=== PATIENT | female | born 1950 | race Caucasian/White ===

== ENCOUNTER 2019-03-31 16:11 | Outpatient (CLI) | payer MEDICARE, MEDICAID ==
--- NOTE | 2019-03-31 16:36 | RAD ---
XR Lumbar Spine 2 Or 3 View History: M 54.5, M 48.06. Ruptured disc Comparison: None. Findings: Mild levoscoliosis lumbar spine. Severe left facet arthropathy at L4/L5 and L5/S1 with mode rate facet arthropathy at these levels. 3 mm L4 over L5 anterolisthesis. Moderate degenerative disc space height loss at L4/L5 and severe deg enerative disc space height loss at L5/S1. Circumferential disc osteophyte complex at L5/S1. Calcifications are present along the expected location left gonadal veins at L5. Right upper quadrant surgical clips. Mild narrowing at of the interspinous space at L1-L5. Impression: Moderate degenerative changes without acute fracture or malalignment.
== END 2019-03-31 16:12 | disposition home or self-care (01) ==
LOC: SCSRAD 16:11
PROVIDERS: ATTEND Physical Medicine & Rehabilitation
DX: M54.5 Low back pain (principal); M47.816 Spondylosis without myelopathy or radiculopathy, lumbar region
CPT/HCPCS: 72100

== ENCOUNTER 2019-04-20 13:43 | Outpatient (CLI) | payer MEDICARE, MEDICAID ==
--- NOTE | 2019-04-20 16:03 | MRI ---
MRI RIGHT HIP WITHOUT CONTRAST: HISTORY: Chronic pain. M54.5. M48.06. COMPARISON: None. FINDINGS: BONES: No fracture. No dislocation. No stress edema. There is a subtle can deformity of the right femoral head/neck junction. There are posterior femoral head/neck junction cysts. Small bilateral ring osteophytes at the femoral head/neck junctions. LABRUM: Intrasubstance tear anterior superior labrum. CARTILAGE: There is 50% cartilage loss anterior femoral head and acetabulum. TENDONS: There is mild gluteus medias and minimus tendinosis and partial tearing. Low-grade gluteus medias bu rsa effusion. The iliopsoas tendon is intact. The rectus femoris tendon is intact. Mild tendinosis of the common hamstring and semimembranosus ten dons. INTRAPELVIC SOFT TISSUES: Unremarkable. MUSCLES: The muscle bulk is normal. No edema. IMPRESSION: 1. Mild to moderate degenerative change of the right hip with greater than 50% articular cartilage l oss of the anterior acetabulum and femoral head. 2. Intrasubstance tear of the labrum. 3. Small ring osteophytes of the bilateral femoral head/neck junctions. 4. Mild right gluteus medias and minimus tendinosis and partial tearing with small right greater tro chanteric bursa effusion. 5. Advanced degenerative changes of the lower lumbar spine. POS: CET
== END 2019-04-20 13:44 | disposition home or self-care (01) ==
LOC: SCSMRI 13:43
PROVIDERS: ATTEND Physical Medicine & Rehabilitation
DX: M54.5 Low back pain (principal); M48.061 Spinal stenosis, lumbar region without neurogenic claudication; M16.11 Unilateral primary osteoarthritis, right hip; S73.101A Unspecified sprain of right hip, initial encounter; M47.816 Spondylosis without myelopathy or radiculopathy, lumbar region; M76.01 Gluteal tendinitis, right hip
CPT/HCPCS: 87077; 87086

== ENCOUNTER 2019-05-26 11:46 | Outpatient (CLI) | payer MEDICARE, MEDICAID ==
--- NOTE | 2019-05-26 13:28 | MRI ---
Cervical spine MRI without contrast: 05/26/2019 COMPARISON: None HISTORY: Cervical disc displacement, radiculopathy TECHNIQUE: Multiplanar multisequence MR imaging of the cervical spine without contrast FINDINGS: Sagittal STIR imaging demonstrates no focal area of osseous marrow edema. There is mucosal thickening involving the alveolar recess of the right maxillary sinus. There is no significant anterolisthesis or retrolisthesis. No prevertebral soft tissue swelling. C2-3: There is a central annular tear with a small central disc protrusion. No associated central can al or neural foraminal stenosis. C3-4: There is disc space narrowing, disc desiccation, and disc bulge with effacement of the ventral thecal sac and moderate central canal stenosis. There is bilateral facet and uncovertebral osteophyte formation with moderate bilateral neural foraminal stenosis. C4-5: There is disc space narrowing and disc desiccation with disc bulge causing a moderate degree of central canal stenosis. There is significant bilateral facet and uncovertebral osteophyte formation, right greater than left, with moderate/severe bilateral neural foraminal stenosis. C5-6: There is disc space narrowing and disc desiccation with disc bulge causing mild effacement of t he ventral thecal sac and mild/moderate central canal stenosis. There is a foraminal and post foraminal disc protrusion on the right. There is mild bilateral uncovertebral osteophyte formation. T here is mild right and moderate left neural foraminal stenosis. C6-7: Disc space narrowing, disc desiccation, and mild disc bulge. No significant central canal steno sis. Mild bilateral neural foraminal stenosis on the basis of facet and uncovertebral osteophyte formation. C7-T1: Mild bilateral facet hypertrophy. Disc space narrowing, disc desiccation, and mild disc bulge. No significant central canal or neural foraminal stenosis. No focal area of abnormal signal intensity identified within the cervical cord. IMPRESSION: Multilevel cervical spine degenerative change as detailed above.
== END 2019-05-26 11:47 | disposition home or self-care (01) ==
LOC: MRI 11:46
PROVIDERS: ATTEND Psychiatry & Neurology Neurology
DX: M50.20 Other cervical disc displacement, unspecified cervical region (principal); M47.812 Spondylosis without myelopathy or radiculopathy, cervical region; M47.813 Spondylosis without myelopathy or radiculopathy, cervicothoracic region
CPT/HCPCS: 72141

== ENCOUNTER 2019-11-11 13:09 | Outpatient (CLI) | payer MEDICARE, MEDICAID ==
--- NOTE | 2019-11-11 15:10 | ULT ---
VENOUS DOPPLER ULTRASOUND OF THE LEFT LOWER EXTREMITY: Date: 11/11/2019 HISTORY: Left leg edema. TECHNIQUE: Booker scale ultrasound with color flow and spectral Doppler imaging of the deep venous system of the l eft lower extremity was performed. FINDINGS: There is good flow, compression, and augmentation noted in the left common femoral, femoral, deep fem oral, popliteal, posterior tibial, and greater saphenous veins. IMPRESSION: No evidence of deep venous thrombosis in the left lower extremity. POS: [facility]
== END 2019-11-11 13:10 | disposition home or self-care (01) ==
LOC: SCSULT 13:09
PROVIDERS: ATTEND Specialist
DX: R60.0 Localized edema (principal)

== ENCOUNTER 2020-02-10 01:35 | Emergency (ER) | payer MEDICARE, MEDICAID ==
[2020-02-10] MEDS ORDERED: Ondansetron PF 4 MG/2 ML Vial ONE (02:15)
[2020-02-10 02:25] LABS: #Basophils 0.1 thou/uL (0.0-0.2); #Eosinphils 0.1 thou/uL (0.0-0.7); #Lymphocytes 1.7 thou/uL (1.20-3.40); #Monocytes 0.9 thou/uL (0.11-0.59); #Neutrophils 8.1 thou/uL (1.40-6.50); %Basophils 0.7 % (0.0-1.0); %Eosinophils 0.9 % (0.0-10.0); %Lymphocytes 15.8 % (21.0-51.0); %Monocytes 8.5 % (0.0-10.0); %Neutrophils 74.2 % (42.0-75.0); Hemoglobin 15.1 g/dL (12.0-16.0); Mean Corpuscular HGB CONC 34.3 g/dL (32.0-36.0); Mean Corpuscular Hemoglobin 31.5 pg (27.0-31.0); Mean Corpuscular Volume 91.9 fL (78.0-98.0); Platelet Count 311 thou/uL (130-400); RBC Distribution Width 11.4 % (11.5-14.5); Red Blood Cell (RBC) Count 4.77 mill/uL (4.20-5.40); White Blood Cell (WBC) Count 10.9 thou/uL (4.8-10.8)
[2020-02-10 02:40] LABS: ALT (SGPT) 31 U/L (8-55); AST (SGOT) 21 U/L (5-34); Albumin 4.2 g/dL (3.4-4.8); Alkaline Phosphatase 86 U/L (40-110); Anion Gap 16 mmol/L (10-20); BUN (Urea Nitrogen) 8 mg/dL (9.8-20.1); Bilirubin, Total 0.6 mg/dL (0.2-1.2); Calc. Creatinine Clearance 0 mL/min (70-130); Carbon Dioxide 21 mmol/L (23-31); Chloride 101 mmol/L (98-107); Estimated GFR-MDRD 35; Globulin 2.8 g/dL (2.4-3.5); Glucose 223 mg/dL (83-110); Lipase 8 U/L (8-78); Potassium 3.1 mmol/L (3.5-5.1); Sodium 135 mmol/L (136-145)
[2020-02-10] MEDS ORDERED: Ketorolac Tromethamine 30 MG/ML VIAL ONE (03:08)
[2020-02-10 03:37] LABS: Bacteria/HPF None Seen HPF (None Seen); Bilirubin Negative (Negative); Blood, Urine 3+ (Negative); Clarity Turbid (Clear); Glucose, Urine (Dipstick) 30 mg/dL (Negative); Leukocyte Negative Leu/uL (Negative); Nitrite Negative (Negative); Protein, Urine (Dipstick) 50 mg/dL (Neg-Trace); RBC/HPF Greater than 50 HPF (0-3); Squamous Epithelial 0-3 HPF (0-3); Urobilinogen Normal mg/dL (Less than 2)
[2020-02-10] MEDS ORDERED: Morphine 4 MG/ML VIAL ONE ×2 (04:19→04:47)
[2020-02-10] MEDS ORDERED: Potassium Chloride 20 MEQ TAB ONE (04:20)
--- NOTE | 2020-02-10 07:53 | RAD ---
Exam: Chest one view HISTORY:Nausea. Vomiting. Comparison: 01/09/2020 FINDINGS: Cardiac silhouette: Normal Aorta: Stable atherosclerosis Pulmonary vessels: Normal Costophrenic angles: Pleural effusion. Stable elevation of the right hemidiaphragm LUNGS: No masses or consolidation. Pneumothorax: None Osseous abnormalities: None IMPRESSION: No acute cardiopulmonary process. Atherosclerosis.
--- NOTE | 2020-02-10 08:00 | CT ---
PRELIMINARY REPORT/[facility]/EMERGENCY AFTER HOURS PROCEDURE: Receipt of this report by the clinical staff was confirmed with Ksenia Yates RN by Pat Longoria on Feb 10, 2020 03:19:00 CDT. Addendum electronically signed by Pat Longoria on February 10, 2020 3:22:17 AM CDT EXAM: CT Abdomen and Pelvis with Intravenous Contrast CLINICAL HISTORY: RLQ ABD PAIN AND VOMITING. PT THINKS SHE HAD HER APPENDIX REMOVED BUT IS UNSURE. ABD PAIN BEGAN TODAY BUT VOMITING HAS BEEN OCCURING FOR A FEW WEEKS WITH DECREASED APPETITE CURRETNLY BEING TREATED FOR UTI. ALSO REPORTS DECREASED URINATION. PT DAUGHTER STATES PCP WAS GOING T O DO IMAGING TO R.O BLOCKAGE BUT THAT THIS HAS NOT BEEN COMPLETED YET TECHNIQUE: Axial computed tomography images of the abdomen and pelvis with intravenous contrast. CONTRAST: With; 60ML ISOVUE 370 COMPARISON: None provided. FINDINGS: LUNG BASES: No basilar airspace consolidation or pleural effusion. LIVER: Unremarkable. GALLBLADDER AND BILE DUCTS: The patient has had a cholecystectomy. PANCREAS: Unremarkable. SPLEEN: Unremarkable. ADRENAL GLANDS: Unremarkable. KIDNEYS, URETERS, AND BLADDER: There is a 5 x 6 mm stone in the right proximal ureter, causing mild t o moderate right-sided hydronephrosis. STOMACH AND BOWEL: No obstruction. No wall thickening. No CT evidence of colitis or acute diverticuli tis. APPENDIX: No CT evidence for appendicitis. PERITONEUM: No free fluid. No free air. LYMPH NODES: No lymphadenopathy. REPRODUCTIVE: Unremarkable as visualized. VASCULATURE: No aortic aneurysm. BONES: No fracture or suspicious osseous abnormality. ABDOMINAL WALL AND SOFT TISSUES: Unremarkable. IMPRESSION: There is a 5 x 6 mm stone in the right proximal ureter, causing mild to moderate right-si ded hydronephrosis. ELECTRONICALLY SIGNED BY: Faviola Saez MD Feb 10, 2020 3:16:43 AM CDT FINAL REPORT: EXAM: CT ABDOMEN AND PELVIS HISTORY: Abdominal pain. Right lower quadrant pain. Vomiting. Possible previous appendectomy. COMPARISON: None. Procedure: Multiple contiguous axial images were obtained and a CT of the abdomen and pelvis with IV contrast. C oronal reformats were performed. FINDINGS: Lower Chest: within normal limits. Vessels: Normal caliber aorta. Heart: Normal heart size. Abdomen: Portal vein:Patent. Gallbladder: Surgically absent. Liver: Diffuse hypoattenuation suggesting hepatic steatosis. Pancreas: within normal limits. Spleen: within normal limits. Adrenals: within normal limits. Kidneys: Moderate right-sided obstructive uropathy secondary to a calculus in the proximal right uret er measuring 0.6 cm. No evidence of left sided obstructive uropathy. Hypodensity in the mid left renal cortex measures 1 cm and is too small to further characterize. Peritoneum: No ascites or free air, no fluid collection. Bowel: Limited evaluation due to the lack of oral contrast administration. No evidence of bowel obstr uction. Ileocecal junction is unremarkable. Though there is a reported history of an appendectomy, normal caliber appendix is identified. Scattered fecal material in a nondistended, nondilated colon. Mesentery and Retroperitoneum: No enlarged mesenteric or retroperitoneal lymph nodes. Abdominal Wall: within normal limits. Pelvis: Reproductive Organs: Surgically absent uterus. Pelvis: No mass, lymphadenopathy, free air or free fluid. Bladder: within normal limits. Bones: within normal limits. IMPRESSION: 1. This report is in agreement with initial report by [facility]. 2. Moderate right-sided obstructive uropathy secondary to a proximally right ureteral calculus. 3. Indeterminate lesion in the left kidney. Followup imaging is recommended. 4. Normal caliber appendix is noted in the right lower. CODE T Transcribed Date/Time: 02/10/2020 8:11 AM
[2020-02-10] MEDS ORDERED: Iopamidol-370 76% 500 ML 1 ML ONE (14:08)
== END 2020-02-10 05:22 | disposition home or self-care (01) ==
LOC: ERS 01:35
DX: N13.2 Hydronephrosis with renal and ureteral calculous obstruction (principal); E11.9 Type 2 diabetes mellitus without complications; I10 Essential (primary) hypertension; Z79.899 Other long term (current) drug therapy
CPT/HCPCS: 36415; 71045; 74177; 80053; 81003; 81015; 83690; 85025; 93005; 96361; 96374; 96375; J1885; J2270; J2405; Q9967

== ENCOUNTER 2020-03-21 13:29 | Outpatient (CLI) | payer MEDICARE, MEDICAID, OTHER ==
[2020-03-21 16:08] LABS: #Basophils 0.1 thou/uL (0.0-0.2); #Eosinphils 0.4 thou/uL (0.0-0.7); #Lymphocytes 2.9 thou/uL (1.20-3.40); #Monocytes 1.1 thou/uL (0.11-0.59); #Neutrophils 6.7 thou/uL (1.40-6.50); %Basophils 0.8 % (0.0-1.0); %Eosinophils 3.4 % (0.0-10.0); %Lymphocytes 26.1 % (21.0-51.0); %Monocytes 10.1 % (0.0-10.0); %Neutrophils 59.5 % (42.0-75.0); Hemoglobin 14.6 g/dL (12.0-16.0); Mean Corpuscular HGB CONC 32.5 g/dL (32.0-36.0); Mean Corpuscular Hemoglobin 29.9 pg (27.0-31.0); Mean Platelet Volume 9.9 fL (7.4-10.4); Platelet Count 344 thou/uL (130-400); RBC Distribution Width 11.8 % (11.5-14.5); White Blood Cell (WBC) Count 11.3 thou/uL (4.8-10.8)
[2020-03-21 16:22] LABS: Anion Gap 15 mmol/L (10-20); BUN (Urea Nitrogen) 12 mg/dL (9.8-20.1); Calc. Creatinine Clearance 0 mL/min (70-130); Calcium 10.1 mg/dL (7.8-10.44); Carbon Dioxide 22 mmol/L (23-31); Chloride 103 mmol/L (98-107); Estimated GFR-MDRD 31; Glucose 113 mg/dL (83-110); Potassium 4.2 mmol/L (3.5-5.1); Sodium 136 mmol/L (136-145)
[2020-03-22 12:24] LABS: SARS-CoV-2 MS2 Positive; SARS-CoV-2 N Gene Negative; SARS-CoV-2 S Gene Negative; SARS-CoV-2 orf1ab Negative
== END 2020-03-21 13:30 | disposition home or self-care (01) ==
LOC: LABBT 13:29
PROVIDERS: ATTEND Urology
DX: Z01.818 Encounter for other preprocedural examination (principal); Z11.59 Encounter for screening for other viral diseases; N20.1 Calculus of ureter
CPT/HCPCS: 80048; 85025; 93005; U0003; 87635; 93010

== ENCOUNTER 2020-03-22 06:08 | Day surgery (SDC) | payer MEDICARE, MEDICAID ==
[2020-03-21 15:40] VITALS: BMI 37.1
[2020-03-22] MEDS ORDERED: Levofloxacin 500 mg/D5W 100 ml Premix Bag ONE (06:19)
[2020-03-22] MEDS ORDERED: Iopamidol 0 ML ONE (06:22)
[2020-03-22] MEDS ORDERED: Iopamidol 0 ML FS ONE (06:22)
[2020-03-22] MEDS ORDERED: Fentanyl 100 MCG/2 ML VIAL ONE ×2 (06:52→12:59)
[2020-03-22] MEDS ORDERED: Iothalamate Meglumine 60% 50 ML VIAL FS ONE (13:01)
--- NOTE | 2020-03-22 13:52 | RAD ---
Retrograde pyelogram 1 view: 03/22/2020 HISTORY: 69-year-old female with right hydronephrosis due to obstructing ureterolithiasis. COMPARISON: No prior retrograde pyelograms FINDINGS: There is a right ureteral stent with upper pigtail overlapping right renal pelvis and lower pigtail a t lower right pelvis. There is contrast material in moderately dilated right renal collecting system and a small amount in the urinary bladder. IMPRESSION: 1.) Right hydronephrosis. 2. Right ureteral stent
[2020-03-22] MEDS ORDERED: Ondansetron PF 4 MG/2 ML Vial ONE (14:11)
[2020-03-22] MEDS ORDERED: Lidocaine 1% PF 5 ML VIAL ONE (14:11)
[2020-03-22] MEDS ORDERED: Ketorolac Tromethamine 30 MG/ML VIAL ONE (14:11)
[2020-03-22] MEDS ORDERED: PHENYLEPHRINE-NS 100 MCG/ML 10 ML SYRINGE ONE (14:11)
[2020-03-22] MEDS ORDERED: PROPOFOL 200 MG/20 ML VIAL ONE (14:11)
--- NOTE | 2020-03-22 14:52 | OP ---
DATE OF PROCEDURE: 03/22/2020 PREOPERATIVE DIAGNOSIS: Right ureteral stone. POSTOPERATIVE DIAGNOSIS: Right ureteral stone. PROCEDURES PERFORMED: Right ureteroscopy with laser, basket, retrograde, 6 x 24 double-J ureteral stent without strings. ANESTHESIA: General. COMPLICATIONS: None. ESTIMATED BLOOD LOSS: None. SPECIMEN: Right ureteral stone fragments. DESCRIPTION OF PROCEDURE: After informed consent, the patient was taken to the operating room, transferred to the table on her own power. Anesthesia was established. A time-out was performed, showing the correct patient, site, and procedure. Preoperative antibiotics were administered. She was prepped and draped in the lithotomy position. I began by inserting the semi-rigid ureteroscope through the urethra noting no significant abnormalities of her pelvic anatomy. The right ureteral orifice was cannulated with a wire, which was passed up to the renal pelvis under fluoroscopic guidance. The scope was withdrawn and reinserted alongside the wire until the stone was identified in the mid to proximal ureter. She did have significant ureteral edema around the stone. 365 micron laser fiber was used to fragment the stone into several small pieces. The 1.9-cm Nitinol basket was used to retrieve these pieces. The scope was then passed up to the renal pelvis noting no further stone fragments or abnormalities. A retrograde pyelogram was performed showing good filling of the renal pelvis noting mild hydronephrosis. The scope was withdrawn, and a 6 x 24 double-J ureteral stent was passed over the wire with a curl in the kidney and curl in the bladder under fluoroscopic guidance. A 16-Kazakh Espinosa catheter was then placed with 10 mL instilled in the balloon draining clear urine. This was connected to leg bag. The patient was then awoken from anesthesia, transferred back to her hospital bed, and taken to PACU in stable condition, where she will be discharged home upon recovery. Job ID: [id number]
== END 2020-03-22 16:10 | disposition home or self-care (01) ==
LOC: SDC 06:08
PROVIDERS: ATTEND Urology
PROC: 0TC68ZZ Extirpation of Matter from Right Ureter, Via Natural or Artificial Opening Endoscopic (ICD-10-PCS; principal; 2020-03-22)
PROC: 0T768DZ Dilation of Right Ureter with Intraluminal Device, Via Natural or Artificial Opening Endoscopic (ICD-10-PCS; 2020-03-22)
DX: N13.2 Hydronephrosis with renal and ureteral calculous obstruction (principal); M19.90 Unspecified osteoarthritis, unspecified site; J45.909 Unspecified asthma, uncomplicated; G89.29 Other chronic pain; E11.9 Type 2 diabetes mellitus without complications; Z87.891 Personal history of nicotine dependence; Z79.84 Long term (current) use of oral hypoglycemic drugs; Z79.899 Other long term (current) drug therapy; Z88.5 Allergy status to narcotic agent; Z88.8 Allergy status to other drugs, medicaments and biological substances
CPT/HCPCS: 74420; 82365; 88300; J1885; J1956; J2405; J2704; J3010; Q9967

== ENCOUNTER 2020-03-23 10:06 | Inpatient (IN) | payer MEDICARE, MEDICAID ==
[2020-03-23 10:40] LABS: Bilirubin Negative (Negative); Blood, Urine 3+ (Negative); Clarity Turbid (Clear); Glucose, Urine (Dipstick) Normal (Negative); Ketone, Urine Negative (Negative); Leukocyte 500 Leu/uL (Negative); Nitrite Negative (Negative); Protein, Urine (Dipstick) 200 mg/dL (Neg-Trace); RBC/HPF Greater than 50 HPF (0-3); Squamous Epithelial None Seen HPF (0-3); Urobilinogen Normal mg/dL (Less than 2); WBC/HPF 0-3 HPF (0-3)
[2020-03-23 10:42] LABS: Bacteria/HPF 1+ HPF (None Seen)
[2020-03-23] MEDS ORDERED: Ondansetron PF 4 MG/2 ML Vial ONE (10:42)
[2020-03-23] MEDS ORDERED: Cefepime 2 GM VIAL ONE (10:42)
[2020-03-23] MEDS ORDERED: Morphine 4 MG/ML VIAL ONE (11:03)
--- NOTE | 2020-03-23 11:05 | RAD ---
RADIOGRAPH CHEST 1 VIEW: DATE: 03/23/2020 HISTORY: 69-year-old female with right chest pain, fever, and sepsis FINDINGS: There are no airspace densities, pulmonary edema, pneumothorax, or cardiomegaly. The lateral costophr enic angles are sharp. No evidence of pneumoperitoneum. IMPRESSION: No acute cardiopulmonary findings.
[2020-03-23 11:28] LABS: #Lymphocytes 1.2 thou/uL (1.20-3.40); #Monocytes 1.5 thou/uL (0.11-0.59); #Neutrophils 12.5 thou/uL (1.40-6.50); %Basophils 0.2 % (0.0-1.0); %Eosinophils 0.2 % (0.0-10.0); %Lymphocytes 7.8 % (21.0-51.0); %Monocytes 9.8 % (0.0-10.0); Mean Corpuscular HGB CONC 32.1 g/dL (32.0-36.0); Mean Corpuscular Hemoglobin 29.4 pg (27.0-31.0); Mean Corpuscular Volume 91.5 fL (78.0-98.0); Mean Platelet Volume 9.2 fL (7.4-10.4); Platelet Count 230 thou/uL (130-400); RBC Distribution Width 12.1 % (11.5-14.5); Red Blood Cell (RBC) Count 4.44 mill/uL (4.20-5.40); White Blood Cell (WBC) Count 15.3 thou/uL (4.8-10.8)
[2020-03-23] MEDS ORDERED: Vancomycin 1 GM/200 ML BAG ONE (11:47)
[2020-03-23 11:52] LABS: ALT (SGPT) 23 U/L (8-55); AST (SGOT) 21 U/L (5-34); Albumin 3.4 g/dL (3.4-4.8); Alkaline Phosphatase 80 U/L (40-110); Anion Gap 12 mmol/L (10-20); BUN (Urea Nitrogen) 13 mg/dL (9.8-20.1); Bilirubin, Total 0.5 mg/dL (0.2-1.2); CK (CPK) 54 U/L (29-168); Calc. Creatinine Clearance 0 mL/min (70-130); Calcium 8.8 mg/dL (7.8-10.44); Carbon Dioxide 23 mmol/L (23-31); Chloride 105 mmol/L (98-107); Estimated GFR-MDRD 27; Globulin 2.5 g/dL (2.4-3.5); Glucose 171 mg/dL (83-110); Lipase 11 U/L (8-78); Magnesium 2.5 mg/dL (1.6-2.6); Potassium 3.8 mmol/L (3.5-5.1); Protein, Total 5.9 g/dL (6.0-8.3); Sodium 136 mmol/L (136-145)
--- NOTE | 2020-03-23 12:28 | CT ---
CT ABDOMEN AND PELVIS WITHOUT CONTRAST: DATE: 03/23/2020. PROVIDED CLINICAL HISTORY: Abdominal pain. FINDINGS: Comparison is made with the CT examination dated 02/10/2020. The visualized lung bases are free of significant opacity. Interval placement of a right ureteral stent. Minimal persistent pelvocaliectasis. A small amount o f collecting system gas is seen. No residual ureteral or renal calculi are evident. No evidence for bladder calculus. There is mild perinephric fat stranding on the right without evidence for a perinephric fluid collect ion. There is a stable small fat-containing lumbar hernia on the right. Changes of prior cholecystectomy are seen. There is no bowel dilatation, additional inflammatory fat stranding, free fluid, or free air apparent. The appendix appears normal. Vascular calcifications are noted. The osseous structures demonstrate no concerning lytic or blastic lesions. There is moderate fecal retention. IMPRESSION: 1. Interval placement of right ureteral stent with nonvisualization of the previously described righ t ureteral calculus. Mild nonspecific right perinephric fat stranding. 2. Chronic findings as above. POS: ANJELICA
[2020-03-23 13:06] LABS: Lactic Acid 3.2 mmol/L (0.5-2.2)
[2020-03-23 14:22] LABS: Lactic Acid 2.7 mmol/L (0.5-2.2)
[2020-03-23] MEDS ORDERED: Mometasone 200 MCG/Formoterol 5 MCG 120 PUFF INHALER INH PRN (16:04)
[2020-03-23] MEDS ORDERED: ALBUTEROL SULFATE IH PRN (16:04)
[2020-03-23] MEDS ORDERED: traMADol HCl 50 MG TAB PO PRN (16:04)
[2020-03-23] MEDS ORDERED: Dextrose 50% Abboject 50 ML SYRINGE SLOW IVP PRN (16:07)
[2020-03-23] MEDS ORDERED: Dextrose 5% in Water 1,000 ML IV PRN (16:07)
[2020-03-23] MEDS ORDERED: HumaLOG 300 UNITS/3 ML VIAL SC PRN ×2 (16:07)
[2020-03-23] MEDS ORDERED: Ondansetron ODT 4 MG TAB PO PRN (16:08)
[2020-03-23] MEDS ORDERED: Bisacodyl 10 MG SUPP PR PRN (16:08)
[2020-03-23] MEDS ORDERED: Ondansetron PF 4 MG/2 ML Vial IVP PRN (16:08)
[2020-03-23] MEDS ORDERED: Docusate 100 MG CAP PO PRN (16:11)
[2020-03-23] MEDS ORDERED: diphenhydrAMINE 25 MG CAP PO PRN (16:11)
[2020-03-23] MEDS ORDERED: Melatonin 3 MG TAB PO PRN (16:11)
[2020-03-23] MEDS ORDERED: Labetalol HCl 100 MG/20 ML VIAL SLOW IVP PRN (16:11)
[2020-03-23] MEDS ORDERED: Benzonatate 100 MG CAP PO PRN (16:11)
--- NOTE | 2020-03-23 16:19 | PDOC.HHP ---
Hospitalist HPI - History of Present Illness UTI, Sepsis History of Present Illness: Pleasant 69-year-old female with past medical history of diabetes, hypertension , hyperlipidemia, asthma, osteoarthritis, and recurrent nephrolithiasis presents with urinary tract infection and severe sepsis. The patient went for urologic procedure yesterday with Dr. Ng, the procedure was successful for with stone extraction on the right, please see full operative report for details. Overnight the patient started feeling like she was having right-sided flank pain, generalized weakness, subjective fever and chills and she presented to the emergency department for further evaluation. I find the patient in the emergency department she is covered in several blankets and states that she is freezing. She is complaining of subjective fever and chills. She was tachycardic , with an elevated WBC count, and low blood pressure. Severe sepsis was present on admission. Patient was given IV fluids appropriately by the emergency department physician and she had a good improvement in her blood pressure. The patient is talking, knows herself, knows she is a [place] [facility], knows the year, and she does know the situation. Patient currently denies flank pain. No trouble breathing. Patient admitted to the medical unit for close management. Urology Dr. Ng has been consulted for continuity of care. Hospitalist ROS - Review of Systems All other systems reviewed; all pertinent +/- noted in HPI/Subj Hospitalist History - Past Medical History Source: patient, old records Cardiac: reports: HTN, Hyperlipidemia Pulmonary: reports: asthma Musculoskeletal: reports: Osteoarthritis Renal/: reports: UTI, Other (recurrent nephrolithiasis) Endocrine: reports: Diabetes - Past Surgical History Past Surgical History: reports: Cholecystectomy, Hysterectomy, Tonsillectomy, Other (uroscopy) - Family History Family History: reports: diabetes mellitus, hypertension - Social History Smoking Status: Former smoker Tobacco Type: cigarettes Alcohol: reports: None Drugs: reports: none Living Situation: With Family Activity level: independent ambulation - Exam General Appearance: awake alert Eye: PERRL, anicteric sclera ENT: normocephalic atraumatic, moist mucosa Neck: supple, symmetric, no lymphadenopathy Heart: no murmur, no gallops, no rubs, normal peripheral pulses Respiratory: CTAB, no wheezes, no rales, no ronchi, normal chest expansion Gastrointestinal: soft, non-tender, no guarding, no rigidity Extremities: 1+ LE edema Skin: no lesions, no rashes Neurological: cranial nerve grossly intact, no focal deficits Musculoskeletal: generalized weakness Psychiatric: A&O x 3 Hospitalist Results - Labs Result Diagrams: 03/23/20 11:11 03/23/20 11:11 Lab results: WBC 15.3 thou/uL (4.8-10.8) H 03/23/20 11:11 Hgb 13.0 g/dL (12.0-16.0) 03/23/20 11:11 Hct 40.6 % (36.0-47.0) 03/23/20 11:11 MCV 91.5 fL (78.0-98.0) 03/23/20 11:11 Plt Count 230 thou/uL (130-400) 03/23/20 11:11 Neutrophils % 82.0 % (42.0-75.0) H 03/23/20 11:11 Sodium 136 mmol/L (136-145) 03/23/20 11:11 Potassium 3.8 mmol/L (3.5-5.1) 03/23/20 11:11 Chloride 105 mmol/L (98-107) 03/23/20 11:11 Carbon Dioxide 23 mmol/L (23-31) 03/23/20 11:11 BUN 13 mg/dL (9.8-20.1) 03/23/20 11:11 Creatinine 1.83 mg/dL (0.6-1.1) H 03/23/20 11:11 Glucose 171 mg/dL (83-110) H 03/23/20 11:11 Lactic Acid 2.7 mmol/L (0.5-2.2) H 03/23/20 13:47 Calcium 8.8 mg/dL (7.8-10.44) 03/23/20 11:11 Total Bilirubin 0.5 mg/dL (0.2-1.2) 03/23/20 11:11 AST 21 U/L (5-34) 03/23/20 11:11 ALT 23 U/L (8-55) 03/23/20 11:11 Alkaline Phosphatase 80 U/L (40-110) 03/23/20 11:11 Creatine Kinase 54 U/L (29-168) 03/23/20 11:11 Troponin I 0.022 ng/mL (< 0.028) 03/23/20 11:11 Serum Total Protein 5.9 g/dL (6.0-8.3) L 03/23/20 11:11 Albumin 3.4 g/dL (3.4-4.8) 03/23/20 11:11 Lipase 11 U/L (8-78) 03/23/20 11:11 Urine Ketones Negative mg/dL (Negative) 03/23/20 10:19 Urine Blood 3+ (Negative) A 03/23/20 10:19 Urine Nitrite Negative (Negative) 03/23/20 10:19 Ur Leukocyte Esterase 500 Barbara/uL (Negative) A 03/23/20 10:19 Urine RBC Greater than 50 HPF (0-3) A 03/23/20 10:19 Urine WBC 0-3 HPF (0-3) 03/23/20 10:19 Ur Squamous Epith Cells None Seen HPF (0-3) 03/23/20 10:19 Urine Bacteria 1+ HPF (None Seen) A 03/23/20 10:19 - Radiology Interpretation CT scan - abdomen Status: image reviewed by mt Hospitalist H&P A/P - Problem (1) Severe sepsis Code(s): A41.9 - SEPSIS, UNSPECIFIED ORGANISM; R65.20 - SEVERE SEPSIS WITHOUT SEPTIC SHOCK Status: Acute (2) Complicated UTI (urinary tract infection) Code(s): N39.0 - URINARY TRACT INFECTION, SITE NOT SPECIFIED Status: Acute (3) Pyelonephritis Code(s): N12 - TUBULO-INTERSTITIAL NEPHRITIS, NOT SPCF ACUTE OR CHRONIC Status: Acute (4) DM (diabetes mellitus) Code(s): E11.9 - TYPE 2 DIABETES MELLITUS WITHOUT COMPLICATIONS Status: Acute (5) HTN (hypertension) Code(s): I10 - ESSENTIAL (PRIMARY) HYPERTENSION Status: Acute (6) HLD (hyperlipidemia) Code(s): E78.5 - HYPERLIPIDEMIA, UNSPECIFIED Status: Acute (7) Nephrolithiasis Status: Acute (8) Asthma Code(s): J45.909 - UNSPECIFIED ASTHMA, UNCOMPLICATED Status: Acute (9) Osteoarthritis Code(s): M19.90 - UNSPECIFIED OSTEOARTHRITIS, UNSPECIFIED SITE Status: Acute (10) ELOISA (acute kidney injury) Code(s): N17.9 - ACUTE KIDNEY FAILURE, UNSPECIFIED Status: Acute - Plan Plan: Plan: Admit to medical unit urology consultation, recommendations appreciated broad-spectrum IV antibiotics urinary culture IV fluid resuscitation for ELOISA de-escalate to culture and sensitivity as able Tylenol as needed for fever supplemental oxygen if needed for O2 saturation's short acting insulin for glucose control blood pressure control continue home medications as able G.I. prophylaxis DVT prophylaxis
[2020-03-23] MEDS ORDERED: Polyvinyl Alcohol 1.4%/Povidone 0.6% Opth Drops EA EYE PRN (16:30)
[2020-03-23 16:47] VITALS: BMI 32.9
[2020-03-23] MEDS ORDERED: Sodium Chloride 0.9% 500 ML IV SCH (17:00)
[2020-03-23] MEDS: Sodium Chloride 0.9% 1,000 ML IV SCH (17:32)
[2020-03-23] MEDS: Acetaminophen 325 MG TAB PO PRN (18:22)
[2020-03-23] MEDS: cefTRIAXone\\ROCEPHIN 2 GM in Sodium Chloride 0.9% 100 ML IVPB SCH (21:08)
[2020-03-24 06:23] LABS: #Eosinphils 0.2 thou/uL (0.0-0.7); #Lymphocytes 0.9 thou/uL (1.20-3.40); #Monocytes 0.8 thou/uL (0.11-0.59); #Neutrophils 4.8 thou/uL (1.40-6.50); %Basophils 0.6 % (0.0-1.0); %Eosinophils 2.3 % (0.0-10.0); %Monocytes 11.8 % (0.0-10.0); %Neutrophils 72.2 % (42.0-75.0); Hemoglobin 12.2 g/dL (12.0-16.0); Mean Corpuscular HGB CONC 30.7 g/dL (32.0-36.0); Mean Corpuscular Hemoglobin 28.7 pg (27.0-31.0); Mean Corpuscular Volume 93.4 fL (78.0-98.0); Mean Platelet Volume 9.8 fL (7.4-10.4); Platelet Count 169 thou/uL (130-400); RBC Distribution Width 12.2 % (11.5-14.5); Red Blood Cell (RBC) Count 4.27 mill/uL (4.20-5.40); White Blood Cell (WBC) Count 6.7 thou/uL (4.8-10.8)
[2020-03-24 06:46] LABS: Anion Gap 10 mmol/L (10-20); BUN (Urea Nitrogen) 13 mg/dL (9.8-20.1); Calc. Creatinine Clearance 55 mL/min (70-130); Calcium 7.7 mg/dL (7.8-10.44); Carbon Dioxide 21 mmol/L (23-31); Chloride 107 mmol/L (98-107); Estimated GFR-MDRD 39; Glucose 115 mg/dL (83-110); Potassium 4.4 mmol/L (3.5-5.1); Sodium 134 mmol/L (136-145)
[2020-03-24] MEDS: Sodium Chloride 0.9% 1,000 ML IV SCH ×2 (06:51→12:57)
[2020-03-24] MEDS: Tamsulosin HCl 0.4 MG CAP PO SCH (08:44)
[2020-03-24] MEDS: Ascorbic Acid 500 mg Chewable Tablet PO SCH (08:44)
[2020-03-24] MEDS: Cholecalciferol 1,000 UNITS (25 MCG) TAB PO SCH (08:44)
[2020-03-24] MEDS: Lactinex Tablet PO SCH (08:44)
[2020-03-24] MEDS: Famotidine 20 MG TAB PO SCH (08:44)
[2020-03-24] MEDS ORDERED: Prevnar 13-Val Conj/PF 0.5 ML SYRINGE IM ONE (09:00)
[2020-03-24] MEDS ORDERED: Fleet Enema 133 ML BOT PR PRN (11:02)
[2020-03-24] MEDS: Docusate 100 MG CAP PO SCH ×2 (12:55→19:25)
[2020-03-24] MEDS ORDERED: Docusate 100 MG CAP PO SCH (13:00)
--- NOTE | 2020-03-24 15:12 | PDOC.HOSPP ---
- Subjective Subjective: Seen and examined. Doing much better today. Mild constipation pain, which is chronic for her. Denies flank pain. Fever resolving. WBC now normal. Responding to medical management. Time given for questions, all answered in detail. - Objective Vital Signs & Weight: Vital Signs (12 hours) Temp Pulse Resp BP BP Pulse Ox 03/24/20 11:25 98.4 F 92 16 111/73 95 03/24/20 08:00 97 03/24/20 07:29 98.0 F 91 16 114/77 97 03/24/20 04:54 98.5 F 94 18 118/77 98 Weight Weight 197 lb 12.074 oz I&O: 03/23/20 03/24/20 03/25/20 06:59 06:59 06:59 Intake Total 1275 Output Total 1600 Balance -325 Result Diagrams: 03/24/20 05:35 03/24/20 05:35 Additional Labs: Accuchecks 03/24/20 03/24/20 03/23/20 11:33 04:57 20:11 POC Glucose 106 106 127 H 03/23/20 16:41 POC Glucose 78 Radiology Reviewed by me: Yes Hospitalist ROS - Review of Systems All other systems reviewed; all pertinent +/- noted in HPI/Subj - Medication Medications: Active Medications Generic Name Dose Route Start Last Admin Trade Name Freq PRN Reason Stop Dose Admin Acetaminophen 650 mg 03/23/20 17:50 03/23/20 18:22 Tylenol PO 650 mg Q4H PRN Administration Fever/Mild Pain Acidophilus 1 tab 03/24/20 09:00 03/24/20 08:44 Floranex PO 1 tab DAILY MISHEL Administration Ascorbic Acid 1,000 mg 03/24/20 09:00 03/24/20 08:44 Vitamin C PO 1,000 mg DAILY MISHEL Administration Cholecalciferol 2,000 units 03/24/20 09:00 03/24/20 08:44 Vitamin D3 PO 2,000 units DAILY MISHEL Administration Docusate Sodium 100 mg 03/24/20 21:00 03/24/20 12:55 Colace PO 100 mg BID MISHEL Administration Famotidine 20 mg 03/24/20 09:00 03/24/20 08:44 Pepcid PO 20 mg DAILY MISHEL Administration Ceftriaxone Sodium 2 gm/ 100 mls @ 200 mls/hr 03/23/20 22:00 07/22/20 21:08 Sodium Chloride IVPB 100 mls 2200 MISHEL Administration Sodium Chloride 1,000 mls @ 50 mls/hr 03/24/20 11:01 03/24/20 12:57 Normal Saline 0.9% IV Not Given .Q20H MISHEL Tamsulosin HCl 0.4 mg 03/24/20 09:00 03/24/20 08:44 Flomax PO 0.4 mg DAILY MISHEL Administration - Exam General Appearance: NAD, awake alert Eye: anicteric sclera ENT: normocephalic atraumatic, moist mucosa Neck: supple, symmetric Heart: no murmur, no gallops, no rubs Respiratory: CTAB, no wheezes, no rales, no ronchi Gastrointestinal: soft, non-tender, normal bowel sounds, no palpable masses, no guarding, no rigidity Extremities: 1+ LE edema Skin: no lesions, no rashes Neurological: cranial nerve grossly intact, no focal deficits Musculoskeletal: generalized weakness Psychiatric: normal affect, A&O x 3 Hosp A/P (1) Severe sepsis Code(s): A41.9 - SEPSIS, UNSPECIFIED ORGANISM; R65.20 - SEVERE SEPSIS WITHOUT SEPTIC SHOCK Status: Acute (2) Complicated UTI (urinary tract infection) Code(s): N39.0 - URINARY TRACT INFECTION, SITE NOT SPECIFIED Status: Acute (3) Pyelonephritis Code(s): N12 - TUBULO-INTERSTITIAL NEPHRITIS, NOT SPCF ACUTE OR CHRONIC Status: Acute (4) DM (diabetes mellitus) Code(s): E11.9 - TYPE 2 DIABETES MELLITUS WITHOUT COMPLICATIONS Status: Acute (5) HTN (hypertension) Code(s): I10 - ESSENTIAL (PRIMARY) HYPERTENSION Status: Acute (6) HLD (hyperlipidemia) Code(s): E78.5 - HYPERLIPIDEMIA, UNSPECIFIED Status: Acute (7) Nephrolithiasis Status: Acute (8) Asthma Code(s): J45.909 - UNSPECIFIED ASTHMA, UNCOMPLICATED Status: Acute (9) Osteoarthritis Code(s): M19.90 - UNSPECIFIED OSTEOARTHRITIS, UNSPECIFIED SITE Status: Acute (10) ELOISA (acute kidney injury) Code(s): N17.9 - ACUTE KIDNEY FAILURE, UNSPECIFIED Status: Acute - Plan Plan: Medical unit Urology consultation, recommendations appreciated IV ABX Urine culture, de escalate to culture and sensitivity as able RN startes there is a white discharge possible from the vagina Add 1 time Fluconazole now IV fluids improving ELOISA Tylenol PRN fever Supplemental O2 if needed to maintain O2 saturations cotninue other home medications as able Blood pressure control Blood sugar control GI PPX DVT PPX
[2020-03-24] MEDS: traMADol HCl 50 MG TAB PO PRN (16:13)
[2020-03-24] MEDS ORDERED: Fluconazole 100 MG TAB PO SCH (18:30)
--- NOTE | 2020-03-24 18:32 | PRG ---
DATE OF SERVICE: 03/24/2020 SUBJECTIVE: The patient was admitted yesterday with likely sepsis after undergoing right ureteroscopy with laser lithotripsy on Saturday. Today, she reports that she feels much better and is no longer having fevers or weakness. OBJECTIVE: VITAL SIGNS: Afebrile. Vitals stable. Urine output 1600. GENERAL: No acute distress. LUNGS: Unlabored breathing, symmetric chest expansion. HEART: Regular rate and rhythm. ABDOMEN: Soft, nontender, and nondistended. : No flank tenderness. No suprapubic tenderness. SKIN: Warm and dry. LABORATORY DATA: Reviewed. White count 6.7. Creatinine 1.34. Urinalysis yesterday, 500 leukocyte esterase, negative nitrites. Urine culture from March 23, no growth. Hospital day 2, sepsis possibly secondary to urinary tract infection. Her CT shows that the stent and catheter in good position with no residual stone fragments noted. I agree with broad-spectrum antibiotics until urine culture results. At that point, she can be discharged home with 10 days of appropriate antibiotic therapy. She will keep her scheduled follow up with me for stent and catheter removal. Job ID: [id number]
[2020-03-24] MEDS: Cyclobenzaprine 10 MG TAB PO PRN (19:25)
[2020-03-24] MEDS: Carbamide Peroxide 6.5% Otic Drops 15 ml Bottle EA EAR SCH (19:28)
[2020-03-24] MEDS: cefTRIAXone\\ROCEPHIN 2 GM in Sodium Chloride 0.9% 100 ML IVPB SCH (21:15)
[2020-03-25] MEDS: Sodium Chloride 0.9% 1,000 ML IV SCH ×3 (02:27→21:13)
[2020-03-25] MEDS: traMADol HCl 50 MG TAB PO PRN ×2 (08:22→20:48)
[2020-03-25] MEDS: Famotidine 20 MG TAB PO SCH (08:24)
[2020-03-25] MEDS: Lactinex Tablet PO SCH (08:24)
[2020-03-25] MEDS: Cholecalciferol 1,000 UNITS (25 MCG) TAB PO SCH (08:24)
[2020-03-25] MEDS: Docusate 100 MG CAP PO SCH ×3 (08:25→20:48)
[2020-03-25] MEDS: Ascorbic Acid 500 mg Chewable Tablet PO SCH (08:25)
[2020-03-25] MEDS: Tamsulosin HCl 0.4 MG CAP PO SCH (08:25)
[2020-03-25] MEDS: Carbamide Peroxide 6.5% Otic Drops 15 ml Bottle EA EAR SCH ×2 (08:26→20:47)
[2020-03-25 11:16] LABS: Anion Gap 10 mmol/L (10-20); BUN (Urea Nitrogen) 10 mg/dL (9.8-20.1); Calc. Creatinine Clearance 69 mL/min (70-130); Calcium 8.3 mg/dL (7.8-10.44); Carbon Dioxide 22 mmol/L (23-31); Chloride 103 mmol/L (98-107); Estimated GFR-MDRD 51; Glucose 118 mg/dL (83-110); Potassium 4.1 mmol/L (3.5-5.1); Sodium 131 mmol/L (136-145)
[2020-03-25] MEDS ORDERED: Magnesium Citrate 300 ML BOT PO SCH (11:30)
[2020-03-25] MEDS ORDERED: Mineral Oil ENEMA PR PRN (11:31)
--- NOTE | 2020-03-25 14:27 | PDOC.HOSPP ---
- Subjective Subjective: Seen and examined. Continue to improve. Afebrile. UTI symptoms improving. Still constipated. No new complaints. - Objective Vital Signs & Weight: Vital Signs (12 hours) Temp Pulse Resp BP Pulse Ox 03/25/20 12:00 97.7 F 82 18 113/74 94 L 03/25/20 08:00 97.5 F L 93 18 122/82 97 Weight Weight 197 lb 12.074 oz I&O: 03/24/20 03/25/20 03/26/20 06:59 06:59 06:59 Intake Total 1275 1954 Output Total 1600 2300 Balance -325 -346 Result Diagrams: 03/24/20 05:35 03/25/20 10:29 Additional Labs: Accuchecks 03/25/20 03/25/20 03/24/20 10:42 04:44 19:58 POC Glucose 127 H 88 125 H 03/24/20 16:15 POC Glucose 70 Radiology Reviewed by me: Yes Hospitalist ROS - Review of Systems All other systems reviewed; all pertinent +/- noted in HPI/Subj - Medication Medications: Active Medications Generic Name Dose Route Start Last Admin Trade Name Freq PRN Reason Stop Dose Admin Acetaminophen 650 mg 03/23/20 17:50 03/23/20 18:22 Tylenol PO 650 mg Q4H PRN Administration Fever/Mild Pain Acidophilus 1 tab 03/24/20 09:00 03/25/20 08:24 Floranex PO 1 tab DAILY MISHEL Administration Ascorbic Acid 1,000 mg 03/24/20 09:00 03/25/20 08:25 Vitamin C PO 1,000 mg DAILY MISHEL Administration Carbamide Perox/Anhydrous Glycerin 5 drop 03/24/20 21:00 03/25/20 08:26 Debrox 6.5% Otic EA EAR 5 drop BID MISHEL Administration Cholecalciferol 2,000 units 03/24/20 09:00 03/25/20 08:24 Vitamin D3 PO 2,000 units DAILY MISHEL Administration Cyclobenzaprine HCl 10 mg 03/23/20 16:04 03/24/20 19:25 Flexeril PO 10 mg TIDPRN PRN Administration Muscle Spasm Docusate Sodium 100 mg 03/24/20 21:00 03/25/20 08:25 Colace PO 100 mg BID MISHEL Administration Famotidine 20 mg 03/24/20 09:00 03/25/20 08:24 Pepcid PO 20 mg DAILY MISHEL Administration Ceftriaxone Sodium 2 gm/ 100 mls @ 200 mls/hr 03/23/20 22:00 03/24/20 21:15 Sodium Chloride IVPB 100 mls 2200 MISHEL Administration Magnesium Citrate 300 ml 03/25/20 11:30 03/25/20 12:57 Citrate Of Magnesia 300 Ml Bot PO 03/25/20 16:00 300 ml NOW MISHEL Administration Sodium Biphosphate/Sodium Phosphate 133 ml 03/24/20 11:02 03/24/20 18:45 Fleet Enema CA 133 ml DAILYPRN PRN Administration Constipation Sodium Chloride 10 ml 03/24/20 21:00 03/25/20 08:27 Flush - Normal Saline IVF Not Given Q12HR [facility] Tamsulosin HCl 0.4 mg 03/24/20 09:00 03/25/20 08:25 Flomax PO 0.4 mg DAILY MISHEL Administration Tramadol HCl 50 mg 03/24/20 13:00 03/25/20 08:22 Ultram PO 50 mg Q6H PRN Administration Moderate to Severe Pain (6-10) - Exam General Appearance: NAD, awake alert Eye: PERRL ENT: normocephalic atraumatic, moist mucosa Neck: supple, symmetric, no lymphadenopathy Heart: no murmur, no gallops, no rubs Respiratory: CTAB, no wheezes, no rales, no ronchi, normal chest expansion Gastrointestinal: soft, non-tender, no guarding, no rigidity Extremities: 1+ LE edema Extremities - other findings: Left UE edema from infiltrated IV Skin: no lesions, no rashes Neurological: cranial nerve grossly intact, no new deficit Musculoskeletal: generalized weakness Psychiatric: A&O x 3 Hosp A/P (1) Severe sepsis Code(s): A41.9 - SEPSIS, UNSPECIFIED ORGANISM; R65.20 - SEVERE SEPSIS WITHOUT SEPTIC SHOCK Status: Acute (2) Complicated UTI (urinary tract infection) Code(s): N39.0 - URINARY TRACT INFECTION, SITE NOT SPECIFIED Status: Acute (3) Pyelonephritis Code(s): N12 - TUBULO-INTERSTITIAL NEPHRITIS, NOT SPCF ACUTE OR CHRONIC Status: Acute (4) DM (diabetes mellitus) Code(s): E11.9 - TYPE 2 DIABETES MELLITUS WITHOUT COMPLICATIONS Status: Acute (5) HTN (hypertension) Code(s): I10 - ESSENTIAL (PRIMARY) HYPERTENSION Status: Acute (6) HLD (hyperlipidemia) Code(s): E78.5 - HYPERLIPIDEMIA, UNSPECIFIED Status: Acute (7) Nephrolithiasis Status: Acute (8) Asthma Code(s): J45.909 - UNSPECIFIED ASTHMA, UNCOMPLICATED Status: Acute (9) Osteoarthritis Code(s): M19.90 - UNSPECIFIED OSTEOARTHRITIS, UNSPECIFIED SITE Status: Acute (10) ELOISA (acute kidney injury) Code(s): N17.9 - ACUTE KIDNEY FAILURE, UNSPECIFIED Status: Acute - Plan Plan: Medical unit Urology consultation, recommendations appreciated IV ABX Urine culture, de escalate to culture and sensitivity as able Yeast in urine, no bacteria isolated to date S/p 1 time dose Fluconazole now IV fluids improving ELOISA, hyponatremia downtrending - will continue IV fluids overnight and trend sodium level Restrict access to free water for Na correction Tylenol PRN fever Supplemental O2 if needed to maintain O2 saturations cotninue other home medications as able Blood pressure control Blood sugar control GI PPX DVT PPX
[2020-03-25] MEDS: Acetaminophen 325 MG TAB PO PRN (20:48)
[2020-03-25] MEDS: Cyclobenzaprine 10 MG TAB PO PRN (20:48)
[2020-03-25] MEDS: cefTRIAXone\\ROCEPHIN 2 GM in Sodium Chloride 0.9% 100 ML IVPB SCH (21:08)
[2020-03-26] MEDS: Acetaminophen 325 MG TAB PO PRN ×2 (05:20→20:33)
[2020-03-26] MEDS: traMADol HCl 50 MG TAB PO PRN ×3 (05:20→20:33)
[2020-03-26] MEDS: Famotidine 20 MG TAB PO SCH (10:09)
[2020-03-26] MEDS: Docusate 100 MG CAP PO SCH ×2 (10:10→20:33)
[2020-03-26] MEDS: Lactinex Tablet PO SCH (10:10)
[2020-03-26] MEDS: Carbamide Peroxide 6.5% Otic Drops 15 ml Bottle EA EAR SCH ×2 (10:10→20:35)
[2020-03-26] MEDS: Tamsulosin HCl 0.4 MG CAP PO SCH (10:10)
[2020-03-26] MEDS: Ascorbic Acid 500 mg Chewable Tablet PO SCH (10:10)
[2020-03-26] MEDS: Cholecalciferol 1,000 UNITS (25 MCG) TAB PO SCH (10:10)
[2020-03-26] MEDS: Sodium Chloride 0.9% 1,000 ML IV SCH (13:16)
--- NOTE | 2020-03-26 14:56 | PDOC.HOSPP ---
- Subjective Encounter Date: 03/26/20 Encounter Time: 11:45 Subjective: pt up in bed no complains - Objective Vital Signs & Weight: Vital Signs (12 hours) Temp Pulse Resp BP BP Pulse Ox 03/26/20 11:42 97.5 F L 97 16 128/87 94 L 03/26/20 07:04 97.6 F 81 17 120/80 96 Weight Weight 197 lb 12.074 oz I&O: 03/25/20 03/26/20 03/27/20 06:59 06:59 06:59 Intake Total 1954 2290 200 Output Total 2300 2250 Balance -346 40 200 Result Diagrams: 03/24/20 05:35 03/25/20 10:29 Additional Labs: Accuchecks 03/26/20 03/26/20 03/25/20 11:46 05:18 20:58 POC Glucose 90 106 119 H 03/25/20 16:13 POC Glucose 102 Hospitalist ROS - Review of Systems Cardiovascular: denies: chest pain, palpitations, orthopnea, paroxysmal noc. dyspnea, edema, light headedness, other Gastrointestinal: denies: nausea, vomiting, abdominal pain, diarrhea, constipation, melena, hematochezia, other Genitourinary: denies: dysuria, frequency, incontinence, hematuria, retention, other - Medication Medications: Active Medications Generic Name Dose Route Start Last Admin Trade Name Freq PRN Reason Stop Dose Admin Acetaminophen 650 mg 03/23/20 17:50 03/26/20 05:20 Tylenol PO 650 mg Q4H PRN Administration Fever/Mild Pain Acidophilus 1 tab 03/24/20 09:00 03/26/20 10:10 Floranex PO 1 tab DAILY MISHEL Administration Ascorbic Acid 1,000 mg 03/24/20 09:00 03/26/20 10:10 Vitamin C PO 1,000 mg DAILY MISHEL Administration Carbamide Perox/Anhydrous Glycerin 5 drop 03/24/20 21:00 03/26/20 10:10 Debrox 6.5% Otic EA EAR 5 drop BID MISHEL Administration Cholecalciferol 2,000 units 03/24/20 09:00 03/26/20 10:10 Vitamin D3 PO 2,000 units DAILY MISHEL Administration Cyclobenzaprine HCl 10 mg 03/23/20 16:04 03/25/20 20:48 Flexeril PO 10 mg TIDPRN PRN Administration Muscle Spasm Docusate Sodium 100 mg 03/24/20 21:00 03/26/20 10:10 Colace PO 100 mg BID MISHEL Administration Famotidine 20 mg 03/24/20 09:00 03/26/20 10:09 Pepcid PO 20 mg DAILY MISHEL Administration Ceftriaxone Sodium 2 gm/ 100 mls @ 200 mls/hr 03/23/20 22:00 03/25/20 21:08 Sodium Chloride IVPB 100 mls 2200 MISHEL Administration Sodium Biphosphate/Sodium Phosphate 133 ml 03/24/20 11:02 03/24/20 18:45 Fleet Enema HI 133 ml DAILYPRN PRN Administration Constipation Sodium Chloride 10 ml 03/24/20 21:00 03/26/20 10:14 Flush - Normal Saline IVF Not Given Q12HR [facility] Tamsulosin HCl 0.4 mg 03/24/20 09:00 03/26/20 10:10 Flomax PO 0.4 mg DAILY MISHEL Administration Tramadol HCl 50 mg 03/24/20 13:00 03/26/20 13:24 Ultram PO 50 mg Q6H PRN Administration Moderate to Severe Pain (6-10) - Exam Heart: negative: RRR, no murmur, no gallops, no rubs, normal peripheral pulses, irregular, diminshed peripheral pulses, murmur present, II/IV, III/IV Respiratory: negative: CTAB, no wheezes, no rales, no ronchi, normal chest expansion, no tachypnea, normal percussion, rales, rhonchi, tachypneic, wheezes Gastrointestinal: negative: soft, non-tender, non-distended, normal bowel sounds , no palpable masses, no hepatomegaly, no splenomegaly, no bruit, no guarding, no rigidity, tender to palpation, distended, diminished bowl sounds, voluntary guarding Hosp A/P (1) Complicated UTI (urinary tract infection) Code(s): N39.0 - URINARY TRACT INFECTION, SITE NOT SPECIFIED Status: Acute (2) DM (diabetes mellitus) Code(s): E11.9 - TYPE 2 DIABETES MELLITUS WITHOUT COMPLICATIONS Status: Acute (3) HTN (hypertension) Code(s): I10 - ESSENTIAL (PRIMARY) HYPERTENSION Status: Acute (4) Severe sepsis Code(s): A41.9 - SEPSIS, UNSPECIFIED ORGANISM; R65.20 - SEVERE SEPSIS WITHOUT SEPTIC SHOCK Status: Acute (5) ELOISA (acute kidney injury) Code(s): N17.9 - ACUTE KIDNEY FAILURE, UNSPECIFIED Status: Acute - Plan pt at baseline has limited mobility and uses a electric chair most of the time. Her urine cx did not grow anything. will continue abx for now. Her blood cx have not shown any growth either. she has a perkins. sepsis most likely after in stone extraction.
[2020-03-26] MEDS: Cyclobenzaprine 10 MG TAB PO PRN (18:00)
[2020-03-26] MEDS: cefTRIAXone\\ROCEPHIN 2 GM in Sodium Chloride 0.9% 100 ML IVPB SCH (21:20)
[2020-03-27] MEDS: Famotidine 20 MG TAB PO SCH (08:39)
[2020-03-27] MEDS: Ascorbic Acid 500 mg Chewable Tablet PO SCH (08:39)
[2020-03-27] MEDS: Lactinex Tablet PO SCH (08:40)
[2020-03-27] MEDS: Cholecalciferol 1,000 UNITS (25 MCG) TAB PO SCH (08:40)
[2020-03-27] MEDS: Docusate 100 MG CAP PO SCH ×2 (08:40→21:12)
[2020-03-27] MEDS: Tamsulosin HCl 0.4 MG CAP PO SCH (08:40)
[2020-03-27] MEDS: Atorvastatin Calcium 10 MG TAB PO SCH (08:40)
[2020-03-27] MEDS: Carbamide Peroxide 6.5% Otic Drops 15 ml Bottle EA EAR SCH ×2 (09:14→20:20)
--- NOTE | 2020-03-27 15:34 | PDOC.HOSPP ---
- Subjective Encounter Date: 03/27/20 Encounter Time: 11:15 Subjective: pt up in bed no complains - Objective Vital Signs & Weight: Vital Signs (12 hours) Temp Pulse Resp BP Pulse Ox 03/27/20 08:40 97 03/27/20 07:54 97.5 F L 94 20 128/75 97 Weight Weight 197 lb 12.074 oz I&O: 03/26/20 03/27/20 03/28/20 06:59 06:59 06:59 Intake Total 2290 1360 Output Total 2250 1550 Balance 40 -190 Result Diagrams: 03/24/20 05:35 03/25/20 10:29 Additional Labs: Accuchecks 03/27/20 03/27/20 03/26/20 11:10 04:57 19:21 POC Glucose 83 85 136 H 03/26/20 16:03 POC Glucose 103 Hospitalist ROS - Review of Systems Cardiovascular: denies: chest pain, palpitations, orthopnea, paroxysmal noc. dyspnea, edema, light headedness, other Gastrointestinal: denies: nausea, vomiting, abdominal pain, diarrhea, constipation, melena, hematochezia, other Genitourinary: denies: dysuria, frequency, incontinence, hematuria, retention, other - Medication Medications: Active Medications Generic Name Dose Route Start Last Admin Trade Name Freq PRN Reason Stop Dose Admin Acetaminophen 650 mg 03/23/20 17:50 03/26/20 20:33 Tylenol PO 650 mg Q4H PRN Administration Fever/Mild Pain Acidophilus 1 tab 03/24/20 09:00 03/27/20 08:40 Floranex PO 1 tab DAILY MISHEL Administration Ascorbic Acid 1,000 mg 03/24/20 09:00 03/27/20 08:39 Vitamin C PO 1,000 mg DAILY MISHEL Administration Atorvastatin Calcium 10 mg 03/27/20 09:00 03/27/20 08:40 Lipitor PO 10 mg DAILY MISHEL Administration Bisacodyl 10 mg 03/23/20 16:08 03/26/20 16:36 Dulcolax MD 10 mg DAILYPRN PRN Administration Constipation Carbamide Perox/Anhydrous Glycerin 5 drop 03/24/20 21:00 03/27/20 09:14 Debrox 6.5% Otic EA EAR 5 drop BID MISHEL Administration Cholecalciferol 2,000 units 03/24/20 09:00 03/27/20 08:40 Vitamin D3 PO 2,000 units DAILY MISHEL Administration Cyclobenzaprine HCl 10 mg 03/23/20 16:04 03/26/20 18:00 Flexeril PO 10 mg TIDPRN PRN Administration Muscle Spasm Docusate Sodium 100 mg 03/24/20 21:00 03/27/20 08:40 Colace PO Not Given BID MISHEL Famotidine 20 mg 03/24/20 09:00 03/27/20 08:39 Pepcid PO 20 mg DAILY MISHEL Administration Sodium Biphosphate/Sodium Phosphate 133 ml 03/24/20 11:02 03/24/20 18:45 Fleet Enema MD 133 ml DAILYPRN PRN Administration Constipation Sodium Chloride 10 ml 03/24/20 21:00 03/27/20 08:40 Flush - Normal Saline IVF 10 ml Q12HR MISHEL Administration Tamsulosin HCl 0.4 mg 03/24/20 09:00 03/27/20 08:40 Flomax PO 0.4 mg DAILY MISHEL Administration Tramadol HCl 50 mg 03/24/20 13:00 03/26/20 20:33 Ultram PO 50 mg Q6H PRN Administration Moderate to Severe Pain (6-10) - Exam Heart: negative: RRR, no murmur, no gallops, no rubs, normal peripheral pulses, irregular, diminshed peripheral pulses, murmur present, II/IV, III/IV Respiratory: negative: CTAB, no wheezes, no rales, no ronchi, normal chest expansion, no tachypnea, normal percussion, rales, rhonchi, tachypneic, wheezes Gastrointestinal: negative: soft, non-tender, non-distended, normal bowel sounds , no palpable masses, no hepatomegaly, no splenomegaly, no bruit, no guarding, no rigidity, tender to palpation, distended, diminished bowl sounds, voluntary guarding Hosp A/P (1) Complicated UTI (urinary tract infection) Code(s): N39.0 - URINARY TRACT INFECTION, SITE NOT SPECIFIED Status: Acute (2) DM (diabetes mellitus) Code(s): E11.9 - TYPE 2 DIABETES MELLITUS WITHOUT COMPLICATIONS Status: Acute (3) HTN (hypertension) Code(s): I10 - ESSENTIAL (PRIMARY) HYPERTENSION Status: Acute (4) Severe sepsis Code(s): A41.9 - SEPSIS, UNSPECIFIED ORGANISM; R65.20 - SEVERE SEPSIS WITHOUT SEPTIC SHOCK Status: Acute (5) ELOISA (acute kidney injury) Code(s): N17.9 - ACUTE KIDNEY FAILURE, UNSPECIFIED Status: Acute - Plan pt at baseline has limited mobility and uses a electric chair most of the time. Her urine cx did not grow anything. will continue abx for now. Her blood cx have not shown any growth either. she has a perkins. sepsis most likely after in stone extraction. 03/27 we will switch antibiotics to Cipro p.o. twice daily. Patient's cultures indicates yeast. Blood cultures negative. Watch for 1 more night. Possible discharge tomorrow. Patient will follow-up with urology as outpatient.
[2020-03-27] MEDS: traMADol HCl 50 MG TAB PO PRN (18:11)
[2020-03-27] MEDS: Acetaminophen 325 MG TAB PO PRN (18:11)
[2020-03-27] MEDS: Cipro 250 MG TAB PO SCH (20:19)
[2020-03-27] MEDS: Cyclobenzaprine 10 MG TAB PO PRN (20:19)
[2020-03-28 05:20] LABS: #Eosinphils 0.7 thou/uL (0.0-0.7); #Lymphocytes 3.1 thou/uL (1.20-3.40); #Monocytes 0.7 thou/uL (0.11-0.59); %Basophils 0.1 % (0.0-1.0); %Eosinophils 8.8 % (0.0-10.0); %Lymphocytes 41.3 % (21.0-51.0); %Monocytes 8.9 % (0.0-10.0); %Neutrophils 40.8 % (42.0-75.0); Hemoglobin 12.4 g/dL (12.0-16.0); Mean Corpuscular HGB CONC 32.3 g/dL (32.0-36.0); Mean Corpuscular Hemoglobin 29.1 pg (27.0-31.0); Mean Corpuscular Volume 90.2 fL (78.0-98.0); Mean Platelet Volume 8.7 fL (7.4-10.4); Platelet Count 254 thou/uL (130-400); Red Blood Cell (RBC) Count 4.27 mill/uL (4.20-5.40); White Blood Cell (WBC) Count 7.4 thou/uL (4.8-10.8)
[2020-03-28] MEDS: traMADol HCl 50 MG TAB PO PRN (05:26)
[2020-03-28] MEDS: Cipro 250 MG TAB PO SCH (05:26)
[2020-03-28] MEDS: Acetaminophen 325 MG TAB PO PRN (05:28)
[2020-03-28 05:44] LABS: Anion Gap 11 mmol/L (10-20); BUN (Urea Nitrogen) 5 mg/dL (9.8-20.1); Calc. Creatinine Clearance 82 mL/min (70-130); Calcium 8.5 mg/dL (7.8-10.44); Carbon Dioxide 25 mmol/L (23-31); Chloride 102 mmol/L (98-107); Estimated GFR-MDRD 63; Glucose 79 mg/dL (83-110); Potassium 3.4 mmol/L (3.5-5.1); Sodium 135 mmol/L (136-145)
[2020-03-28] MEDS: Lactinex Tablet PO SCH (09:21)
[2020-03-28] MEDS: Cholecalciferol 1,000 UNITS (25 MCG) TAB PO SCH (09:22)
[2020-03-28] MEDS: Famotidine 20 MG TAB PO SCH (09:22)
[2020-03-28] MEDS: Tamsulosin HCl 0.4 MG CAP PO SCH (09:22)
[2020-03-28] MEDS: Ascorbic Acid 500 mg Chewable Tablet PO SCH (09:23)
[2020-03-28] MEDS: Docusate 100 MG CAP PO SCH (09:24)
[2020-03-28] MEDS: Carbamide Peroxide 6.5% Otic Drops 15 ml Bottle EA EAR SCH (09:25)
[2020-03-28] MEDS: Atorvastatin Calcium 10 MG TAB PO SCH (09:25)
[2020-03-28] MEDS ORDERED: Potassium Chloride 20 MEQ TAB PO SCH (11:45)
[2020-03-28 12:52] VITALS: BP 144/84; TEMP 98.1
--- NOTE | 2020-03-28 16:46 | DIS ---
DATE OF ADMISSION: 03/23/2020 DATE OF DISCHARGE: 03/28/2020 DISCHARGE DIAGNOSES: As of the following; 1. Sepsis, resolved. 2. Acute kidney injury, resolved. 3. Diabetes. 4. Hypertension. 5. Complicated urinary tract infection. HOSPITAL COURSE: The patient is a 69-year-old female, who initially presented to the hospital with complaints of fevers, chills, tachycardia. Please refer to the H and P for further details. The patient had undergone a nephrolithiasis the day prior to her presentation and also had stone extraction. At this time, she appears to be on antibiotics even after the procedure. When she presented, sepsis criteria was initiated. Her urine was sent for analysis. However, her urine culture only indicated less than 10,000. Her blood cultures x5 days were negative. The patient at this time was initially started on broad-spectrum antibiotics and then was tapered based off her previous microbiology, which indicated Staphylococcus lugdunensis. She was put on ciprofloxacin. She has a Espinosa catheter, which she will follow up with Urology as an outpatient and also for stent removal with Urology. The patient's home medications will be as of the following; 1. Ciprofloxacin 500 mg twice a day for the next 10 days. 2. Floranex one tablet daily. 3. Tramadol one tablet as needed. 4. Ditropan 5 mg t.i.d. 5. Atorvastatin 10 mg daily. 6. Tamsulosin 0.4 mg p.o. daily. PHYSICAL EXAMINATION: VITAL SIGNS: Temperature of 98.1, pulse 96, respiratory rate 18, blood pressure 94% on room air, and blood pressure 144/84. GENERAL: The patient is awake, alert, and oriented x3. Does not appear in distress. CV: S1 and S2 present. No murmurs, rubs, or gallops. Again, she will be discharged home. She will follow up with her primary and also with Urology. Job ID: [id number]
== END 2020-03-28 18:27 | disposition home or self-care (01) | DRG 862 ==
LOC: ERS 10:06 → T4-B 14:20
PROVIDERS: ADMIT Internal Medicine; ATTEND Internal Medicine
DX: T81.40XA Infection following a procedure, unspecified, initial encounter (principal); A41.9 Sepsis, unspecified organism; R65.20 Severe sepsis without septic shock; N10 Acute pyelonephritis; N17.9 Acute kidney failure, unspecified; Y83.8 Other surgical procedures as the cause of abnormal reaction of the patient, or of later complication, without mention of misadventure at the time of the procedure; I10 Essential (primary) hypertension; E78.5 Hyperlipidemia, unspecified; J45.909 Unspecified asthma, uncomplicated; M19.90 Unspecified osteoarthritis, unspecified site; E11.9 Type 2 diabetes mellitus without complications; K59.00 Constipation, unspecified; Z88.5 Allergy status to narcotic agent; Z88.8 Allergy status to other drugs, medicaments and biological substances; Z79.899 Other long term (current) drug therapy; Z90.710 Acquired absence of both cervix and uterus; Z90.49 Acquired absence of other specified parts of digestive tract; Z87.891 Personal history of nicotine dependence
CPT/HCPCS: 36415; 36416; 36600; 51702; 71045; 74176; 74420; 80048; 80053; 81003; 81015; 82365; 82550; 83605; 83690; 83735; 84484; 85025; 87040; 87086; 87635; 88300; 93005; 96361; 96365; 96367; 96375; J0692; J0696; J1885; J1956; J2270; J2405; J2704; J3010; J3370; J3490; Q9967; U0003

== ENCOUNTER 2020-04-27 16:16 | Emergency (ER) | payer MEDICARE, MEDICAID ==
[~2020-04-27 16:16] MED LIST: Iopamidol-370 76% 500 ML 1 ML ONE
[2020-04-27] MEDS ORDERED: Fentanyl 100 MCG/2 ML VIAL ONE (17:32)
[2020-04-27] MEDS ORDERED: Ondansetron PF 4 MG/2 ML Vial ONE (17:35)
[2020-04-27] MEDS ORDERED: Ketorolac Tromethamine 30 MG/ML VIAL ONE (17:35)
[2020-04-27 18:28] LABS: #Eosinphils 0.1 thou/uL (0.0-0.7); #Lymphocytes 2.8 thou/uL (1.20-3.40); #Neutrophils 9.2 thou/uL (1.40-6.50); %Basophils 0.3 % (0.0-1.0); %Eosinophils 0.6 % (0.0-10.0); %Lymphocytes 21.3 % (21.0-51.0); %Monocytes 7.4 % (0.0-10.0); %Neutrophils 70.3 % (42.0-75.0); Mean Corpuscular HGB CONC 32.3 g/dL (32.0-36.0); Mean Corpuscular Volume 89.7 fL (78.0-98.0); Mean Platelet Volume 9.6 fL (7.4-10.4); Platelet Count 184 thou/uL (130-400); RBC Distribution Width 13.1 % (11.5-14.5); Red Blood Cell (RBC) Count 5.18 mill/uL (4.20-5.40); White Blood Cell (WBC) Count 13.1 thou/uL (4.8-10.8)
[2020-04-27 18:38] LABS: Bilirubin Negative (Negative); Blood, Urine Trace (Negative); Clarity Turbid (Clear); Glucose, Urine (Dipstick) Normal (Negative); Ketone, Urine Negative (Negative); Leukocyte 500 Leu/uL (Negative); Nitrite Negative (Negative); Protein, Urine (Dipstick) 20 mg/dL (Neg-Trace); Specific Gravity, Urine 1.022 (1.002-1.036); Urobilinogen Normal mg/dL (Less than 2); WBC/HPF 21-50 HPF (0-3); pH, Urine 5.5 (5.0-9.0)
[2020-04-27 18:40] LABS: ALT (SGPT) 28 U/L (8-55); AST (SGOT) 29 U/L (5-34); Albumin 3.6 g/dL (3.4-4.8); Alkaline Phosphatase 140 U/L (40-110); Anion Gap 13 mmol/L (10-20); BUN (Urea Nitrogen) 21 mg/dL (9.8-20.1); Bilirubin, Total 0.9 mg/dL (0.2-1.2); Calc. Creatinine Clearance 0 mL/min (70-130); Calcium 9.4 mg/dL (7.8-10.44); Carbon Dioxide 24 mmol/L (23-31); Chloride 105 mmol/L (98-107); Estimated GFR-MDRD 47; Globulin 2.9 g/dL (2.4-3.5); Glucose 99 mg/dL (83-110); Magnesium 1.8 mg/dL (1.6-2.6); Potassium 3.6 mmol/L (3.5-5.1); Protein, Total 6.5 g/dL (6.0-8.3); Sodium 138 mmol/L (136-145)
[2020-04-27 18:49] LABS: Bacteria/HPF None Seen HPF (None Seen); Calcium Oxalate Crystals Rare HPF (None Seen); Yeast-Budding 1+ HPF (None Seen)
[2020-04-27] MEDS ORDERED: cefTRIAXone\\ROCEPHIN 1 GM VIAL ONE (19:06)
--- NOTE | 2020-04-27 20:03 | CT ---
CT Abdomen Pelvis W Con: 04/27/2020 5:23 PM CLINICAL INFORMATION: Abdominal pain and constipation. No bowel movement for one and a half weeks COMPARISON: 02/10/2020 TECHNIQUE: Multiple contiguous axial images were obtained and a CT of the abdomen and pelvis with IV contrast. C oronal and sagittal reformats were performed. FINDINGS: Lower Chest: within normal limits. Abdomen: Liver: Diffuse fatty infiltration Bile Ducts: Normal caliber. Gallbladder: Removed Pancreas: within normal limits. Spleen: Multiple calcified granulomas. Adrenals: within normal limits. Kidneys: 1.3 cm left renal hypodensity likely represents a cyst. Pelvis: Reproductive Organs: Status post hysterectomy. Ureters: within normal limits. Bladder: within normal limits. Peritoneum: No ascites or free air, no fluid collection. Bowel: Normal caliber. No significant stool retention. Scattered diverticula in the colon. Normal lokesh endix. Mesentery and Retroperitoneum: No enlarged mesenteric or retroperitoneal lymph nodes. Vessels: Atherosclerotic calcifications. Abdominal Wall: within normal limits. Bones: Degenerative changes in the spine. IMPRESSION: 1. No evidence of acute intraabdominal or pelvic abnormality. 2. Diverticulosis 3. Left renal cyst 4. Fatty liver
== END 2020-04-27 20:49 | disposition home or self-care (01) ==
LOC: ERS 16:16
DX: N39.0 Urinary tract infection, site not specified (principal); K59.00 Constipation, unspecified; E11.9 Type 2 diabetes mellitus without complications; I10 Essential (primary) hypertension; Z79.899 Other long term (current) drug therapy
CPT/HCPCS: 74177; 80053; 81003; 81015; 83735; 85025; J0696; J1885; J2405; J3010; Q9967

== ENCOUNTER 2020-04-28 22:37 | Inpatient (IN) | payer MEDICARE, MEDICAID, OTHER ==
[2020-04-28 23:25] LABS: #Eosinphils 0.1 thou/uL (0.0-0.7); #Lymphocytes 2.3 thou/uL (1.20-3.40); #Monocytes 1.2 thou/uL (0.11-0.59); #Neutrophils 13.3 thou/uL (1.40-6.50); %Basophils 0.1 % (0.0-1.0); %Eosinophils 0.6 % (0.0-10.0); %Lymphocytes 13.5 % (21.0-51.0); %Monocytes 7.2 % (0.0-10.0); %Neutrophils 78.6 % (42.0-75.0); Hemoglobin 14.7 g/dL (12.0-16.0); Mean Corpuscular HGB CONC 33.2 g/dL (32.0-36.0); Mean Corpuscular Hemoglobin 29.5 pg (27.0-31.0); Mean Corpuscular Volume 88.9 fL (78.0-98.0); Mean Platelet Volume 10.4 fL (7.4-10.4); Platelet Count 218 thou/uL (130-400); RBC Distribution Width 13.2 % (11.5-14.5); White Blood Cell (WBC) Count 16.9 thou/uL (4.8-10.8)
[2020-04-28] MEDS ORDERED: Fentanyl 100 MCG/2 ML VIAL ONE (23:27)
[2020-04-28] MEDS ORDERED: cefTRIAXone\\ROCEPHIN 1 GM VIAL ONE (23:27)
[2020-04-28] MEDS ORDERED: Sodium Chloride 0.9% 100 ML ONE (23:28)
[2020-04-28 23:47] LABS: ALT (SGPT) 28 U/L (8-55); AST (SGOT) 34 U/L (5-34); Albumin 3.3 g/dL (3.4-4.8); Alkaline Phosphatase 157 U/L (40-110); Anion Gap 12 mmol/L (10-20); BUN (Urea Nitrogen) 16 mg/dL (9.8-20.1); Bilirubin, Total 0.8 mg/dL (0.2-1.2); CK (CPK) 20 U/L (29-168); Calc. Creatinine Clearance 0 mL/min (70-130); Carbon Dioxide 22 mmol/L (23-31); Chloride 105 mmol/L (98-107); Estimated GFR-MDRD 45; Globulin 2.7 g/dL (2.4-3.5); Glucose 72 mg/dL (83-110); Potassium 3.5 mmol/L (3.5-5.1); Sodium 135 mmol/L (136-145)
--- NOTE | 2020-04-28 23:53 | RAD ---
EXAM: Single view of the chest HISTORY: Syncope COMPARISON: 03/23/2020 FINDINGS: Single view of the chest shows a normal sized cardiomediastinal silhouette. Atheroscleroti c calcifications are seen in the aorta. There is stable elevation of the right hemidiaphragm. There is no evidence of consolidation, mass, or pleural effusion. No acute osseous abnormality. IMPRESSION: No evidence of acute cardiopulmonary disease
[2020-04-29] MEDS ORDERED: Dextrose 50% Abboject 50 ML SYRINGE ONE ×2 (01:27)
[2020-04-29 02:52] LABS: Troponin I 0.011 ng/mL (< 0.028)
[2020-04-29 02:55] LABS: Bacteria/HPF None Seen HPF (None Seen); Bilirubin Negative (Negative); Blood, Urine Trace (Negative); Clarity Clear (Clear); Glucose, Urine (Dipstick) >=1000 mg/dL (Negative); Ketone, Urine Negative (Negative); Leukocyte Negative Leu/uL (Negative); Nitrite Negative (Negative); Protein, Urine (Dipstick) 30 mg/dL (Neg-Trace); RBC/HPF 0-3 HPF (0-3); Squamous Epithelial 0-3 HPF (0-3); Urobilinogen Normal mg/dL (Less than 2); pH, Urine 5.5 (5.0-9.0)
[2020-04-29 02:59] LABS: Specific Gravity, Urine 1.049 (1.002-1.036)
[2020-04-29 03:49] VITALS: BMI 34.7
[2020-04-29 05:50] LABS: Lactic Acid 1.8 mmol/L (0.5-2.2)
[2020-04-29 05:56] LABS: Troponin I 0.033 ng/mL (< 0.028)
[2020-04-29] MEDS ORDERED: Dextrose 50% Abboject 50 ML SYRINGE IVP SCH (06:00)
[2020-04-29] MEDS ORDERED: Promethazine HCl 12.5 MG in Sodium Chloride 0.9% 50 ML IVPB PRN (06:02)
[2020-04-29] MEDS ORDERED: cloNIDine 0.1 MG TAB PO PRN (06:02)
[2020-04-29] MEDS ORDERED: hydrALAZINE 20 MG/ML VIAL SLOW IVP PRN (06:02)
[2020-04-29] MEDS ORDERED: Guaifenesin DM 100-10/5 ML UDCUP PO PRN (06:02)
[2020-04-29] MEDS ORDERED: Labetalol HCl 100 MG/20 ML VIAL SLOW IVP PRN (06:02)
[2020-04-29] MEDS ORDERED: Ondansetron PF 4 MG/2 ML Vial IVP PRN (06:02)
[2020-04-29] MEDS ORDERED: HumaLOG 300 UNITS/3 ML VIAL SC PRN (06:02)
--- NOTE | 2020-04-29 06:08 | PDOC.HHP ---
Hospitalist HPI - History of Present Illness altered mental status History of Present Illness: Patient is a 69 year old female with PMH HTN, DM, asthma who presents to ED for UTI, syncope. Patient seen in ED yesterday for abdominal pain yesterday and diagnosed with UTI, had extensive workup including CT which was negative for other pathology, given ceftriaxone and discharged with prescription for levaquin , she did not fill due to financial issues and had syncopal episode, found by EMS to have hypoglycemia and low BP, was walking to backroom, had nausea and vomiting before, denies head trauma. low sugar fixed with glucose syrup. In ED, d dimer elevated. No evidence of PE on CAT scan final read pending, patient improved in ED but given failure of outpatient therapy admitted for further care. given ceftriaxone in ED. WBC 16, UA positive for UTI, tachycardic initially but improved now. She had a urine culture that grew out staph Lugdenesis by culture last time she was admitted and had urosepsis secondary to an infected lithotripsy. Hospitalist ROS - Review of Systems Constitutional: reports: other (syncope). denies: fever, chills, sweats, weakness, malaise Eyes: denies: pain, vision change, conjunctivae inflammation, eyelid inflammation, redness, other ENT: denies: ear pain, ear discharge, nose pain, nose discharge, nose congestion , mouth pain, mouth swelling, throat pain, throat swelling, other Respiratory: denies: cough, dry, shortness of breath, hemoptysis, SOB with excertion, pleuritic pain, sputum, wheezing, other Cardiovascular: denies: chest pain, palpitations, orthopnea, paroxysmal noc. dyspnea, edema, light headedness, other Genitourinary: reports: dysuria, incontinence, retention. denies: frequency, hematuria, other Musculoskeletal: denies: neck pain, shoulder pain, arm pain, back pain, hand pain, leg pain, foot pain, other Skin: denies: rash, lesions, jadon, bruising, other Neurological: denies: weakness, numbness, incoordination, change in speech, confusion, seizures, other All other systems reviewed; all pertinent +/- noted in HPI/Subj - Medication Medications: verapamil oral Emma Apr 28, 2020 22:52 EVAN Ruffin Julia tablet : Strength - 40 mg : ORAL Patient Dose: 180 mg Oral once a day. gabapentin [facility] Apr 28, 2020 22:52 EVAN Ruffin Julia tablet : Strength - 800 mg : ORAL Patient Dose: 1200 mg Oral 3 times a day. cyclobenzaprine [facility] Apr 28, 2020 22:52 EVAN Ruffin Julia tablet : Strength - 5 mg : ORAL Patient Dose: 20 mg Oral once a day (at bedtime). levoFLOXacin oral [facility] Apr 28, 2020 22:52 EVAN Ruffin Julia 750 mg : Strength - TABLET : ORAL Patient Dose: 750 mg Oral once a day (in the morning). Zofran ODT [facility] Apr 28, 2020 22:52 EVAN Ruffin Julia 4 mg : Strength - TABLET, RAPID DISSOLVE : ORAL Patient Dose: 1 tab(s) Oral every 6 hours PRN. traMADol [facility] Apr 28, 2020 22:52 EVAN Ruffin Julia tablet : Strength - 50 mg : ORAL Patient Dose: Unknown.PRN. docusate sodium [facility] Apr 28, 2020 22:53 EVAN Ruffin Julia tablet : Strength - 100 mg : ORAL Patient Dose: 100 mg Oral once a day. tamsulosin [facility] Apr 28, 2020 22:53 EVAN Ruffin Julia capsule : Strength - 0.4 mg : ORAL Patient Dose: 1 tab(s) Oral once a day. Hospitalist History - Past Medical History Musculoskeletal: reports: Osteoarthritis Renal/: reports: UTI, Other (recurrent nephrolithiasis) Endocrine: reports: Diabetes Other Medical History: fibromyalgia,, Past medical history includes history of diabetes TYPE 2, Past medical history includes history of hypertension, bulging discs. Asthma. - Past Surgical History Past Surgical History: reports: Cholecystectomy, Hysterectomy, Tonsillectomy, Other (uroscopy) Other Surgical History: Surgical history of cholecystectomy "RIGHT KIDNEY STONE SURGERY," L shoulder sx. Hysterectomy. - Family History Family History: reports: no pertinent history - Social History Smoking Status: Former smoker Alcohol: reports: None Drugs: reports: none - Exam General Appearance: NAD, awake alert Eye: PERRL, anicteric sclera ENT: normocephalic atraumatic, no oropharyngeal lesions, moist mucosa Neck: supple, symmetric, no JVD, no thyromegaly, no lymphadenopathy, no carotid bruit Heart: RRR, no murmur, no gallops, no rubs, normal peripheral pulses Respiratory: CTAB, no wheezes, no rales, no ronchi, normal chest expansion, no tachypnea, normal percussion Gastrointestinal: soft, non-tender, non-distended, normal bowel sounds, no palpable masses, no hepatomegaly, no splenomegaly, no bruit Extremities: no cyanosis, no clubbing, no edema Skin: normal turgor, no lesions, no rashes Neurological: cranial nerve grossly intact, normal sensation to touch, no weakness, no focal deficits, no new deficit Musculoskeletal: normal tone, normal strength, no muscle wasting Psychiatric: normal affect, normal behavior, A&O x 3 Hospitalist Results - Labs Result Diagrams: 04/28/20 23:10 04/28/20 23:10 Lab results: WBC 16.9 thou/uL (4.8-10.8) H 04/28/20 23:10 Hgb 14.7 g/dL (12.0-16.0) 04/28/20 23:10 Hct 44.4 % (36.0-47.0) 04/28/20 23:10 MCV 88.9 fL (78.0-98.0) 04/28/20 23:10 Plt Count 218 thou/uL (130-400) 04/28/20 23:10 Neutrophils % 78.6 % (42.0-75.0) H 04/28/20 23:10 Sodium 135 mmol/L (136-145) L 04/28/20 23:10 Potassium 3.5 mmol/L (3.5-5.1) 04/28/20 23:10 Chloride 105 mmol/L (98-107) 04/28/20 23:10 Carbon Dioxide 22 mmol/L (23-31) L 04/28/20 23:10 BUN 16 mg/dL (9.8-20.1) 04/28/20 23:10 Creatinine 1.18 mg/dL (0.6-1.1) H 04/28/20 23:10 Glucose 72 mg/dL (83-110) L 04/28/20 23:10 Lactic Acid 1.8 mmol/L (0.5-2.2) 04/29/20 04:38 Calcium 9.0 mg/dL (7.8-10.44) 04/28/20 23:10 Total Bilirubin 0.8 mg/dL (0.2-1.2) 04/28/20 23:10 AST 34 U/L (5-34) 04/28/20 23:10 ALT 28 U/L (8-55) 04/28/20 23:10 Alkaline Phosphatase 157 U/L (40-110) H 04/28/20 23:10 Creatine Kinase 20 U/L (29-168) L 04/28/20 23:10 Troponin I 0.033 ng/mL (< 0.028) H 04/29/20 04:40 Serum Total Protein 6.0 g/dL (6.0-8.3) 04/28/20 23:10 Albumin 3.3 g/dL (3.4-4.8) L 04/28/20 23:10 Urine Ketones Negative mg/dL (Negative) 04/29/20 02:32 Urine Blood Trace (Negative) A 04/29/20 02:32 Urine Nitrite Negative (Negative) 04/29/20 02:32 Ur Leukocyte Esterase Negative Barbara/uL (Negative) 04/29/20 02:32 Urine RBC 0-3 HPF (0-3) 04/29/20 02:32 Urine WBC 4-6 HPF (0-3) A 04/29/20 02:32 Ur Squamous Epith Cells 0-3 HPF (0-3) 04/29/20 02:32 Urine Bacteria None Seen HPF (None Seen) 04/29/20 02:32 Additional comment: labs/imaging reports reviewed VITAL SIGNS SatApr 29, 2020 02:47 EVAN Blankenship Lindsey BP: 106/72 MAP: 83 Pulse: 94 Resp: 15 (Non-Labored) Temp: 97.5 (Oral) Pain: 9 O2 sat: 94 on (Room Air) Time: 04/29/2020 02:47. Hospitalist H&P A/P - Plan Plan: Patient is a 69 year old female with PMH HTN, DM, asthma who presents to ED for UTI, syncope. # UTI # sepsis due to UTI # metabolic encephalopathy - admit to floor - continue ceftriaxone - follow cultures - bladder scan x1, perkins if needed, patient reports feeling of retention # indeterminate troponin - indeterminate, likely demand ischemia, no chest pain , monitor closely # DM - SSI, hold glipizide # HTN - continue home meds DVT/GI ppx PT/OT consultation
[2020-04-29] MEDS ORDERED: Electrolyte Replacement Protoc 1 EACH EACH FS SCH (06:15)
[2020-04-29] MEDS ORDERED: Magnesium 2 GM/50 ML 2 GM in Premix Bag 1 BAG IVPB SCH (07:30)
--- NOTE | 2020-04-29 07:40 | CT ---
PRELIMINARY REPORT/[facility]/EMERGENCY AFTER HOURS PROCEDURE EXAM: CTA Chest with Intravenous Contrast CLINICAL HISTORY: SYNCOPE, TACHY, +DDIMER TECHNIQUE: Axial CTA images of the chest with intravenous contrast. Three-dimensional MIP/volume rendered reform ations were performed. CONTRAST: With; 70ML ISOVUE 370 COMPARISON: None provided. FINDINGS: PULMONARY ARTERIES There is no intraluminal filling defect suspicious for PE. AORTA No thoracic aortic aneurysm or dissection. LUNGS There is suboptimal opacification noted of the pulmonary arterial tree. Platelike scarring or atelectasis is suggested within the right lower lobe. There is a pleural-based 3 mm nodule identified within the right lower lobe on image 55. An additiona l 5 mm nodules present within the left lower lobe on image 79. PLEURAL SPACES No pleural effusion. No pneumothorax. HEART AND MEDIASTINUM No cardiomegaly. No significant pericardial effusion. LYMPH NODES No lymphadenopathy. BONES No focal osseous abnormality or acute fracture. CHEST WALL AND UPPER ABDOMEN The esophagus is mildly patulous and appears to be debris-filled. This may be due to reflux or less l ikely partial distal obstruction. The liver is of diffusely decreased attenuation. There is fluid identified within the visualized upper abdomen, including within the right upper and l eft upper quadrants. Scattered splenic calcifications are present. MISCELLANEOUS: An 11 mm nodule suggested within the left thyroid lobe. IMPRESSION: 1. Suboptimal opacification of the pulmonary arterial tree. No definite evidence of pulmonary embolus is seen within the main or primary pulmonary arterial branches. 2. Asymmetric elevation of the right hemidiaphragm with platelike right basilar atelectasis or scarri ng. 3. A mildly patulous debris-filled esophagus which may reflect reflux or partial distal obstruction. Endoscopic evaluation may be considered. 4. An 11 mm left thyroid lobe nodule. 5. Findings most commonly associated with diffuse fatty infiltration of the liver. 6. Small amounts of free fluid within both the left and right upper quadrants. 7. Evidence of prior granulomatous disease. ELECTRONICALLY SIGNED BY: Jaime Hurley MD Apr 29, 2020 12:54:34 AM CDT This report is intended for review by the ordering physician only, in accordance of law. If you recei ve this report in error, please call [facility] at [phone]. FINAL REPORT CTA Angio Chest W WO Con History: Syncope with tachycardia Comparison: Chest radiograph prior day Findings: CT angiogram chest performed after the intravenous administration of contrast. 3-D renderin g provided. No proximal segmental pulmonary arterial filling defect. Atelectasis within the lung bases. Aortic co ntour is normal. Extensive inflammatory stranding in the upper abdomen. Impression: 1. No pulmonary embolism. 2. Extensive inflammatory stranding in the upper abdomen concerning for pancreatitis. Charge nurse notified at 7:38 AM. This report is in agreement with the preliminary report by [facility]. Transcribed Date/Time: 04/29/2020 8:12 AM
[2020-04-29] MEDS ORDERED: Potassium Chloride 20 MEQ TAB PO SCH (07:45)
[2020-04-29] MEDS: Polyethylene Glycol 3350 17 GM Packet PO SCH (09:07)
[2020-04-29] MEDS: Enoxaparin Sodium 40 MG/0.4 ML SYRINGE SC SCH (09:09)
[2020-04-29] MEDS: Tamsulosin HCl 0.4 MG CAP PO SCH (09:10)
[2020-04-29] MEDS: Famotidine 20 MG TAB PO SCH ×2 (09:10→20:59)
[2020-04-29] MEDS: GABAPENTIN 1200 MG PO SCH ×3 (09:47→20:59)
[2020-04-29] MEDS: Dextrose 50% Abboject 50 ML SYRINGE SLOW IVP PRN ×2 (11:14→17:22)
[2020-04-29] MEDS: Sodium Chloride 0.9% 1,000 ML IV SCH ×2 (12:11→20:57)
--- NOTE | 2020-04-29 12:12 | PDOC.HOSPP ---
- Subjective Encounter Date: 04/29/20 Encounter Time: 10:00 Subjective: c/o lower abd pain, no nausea is trying to eat her breakfast last colonoscopy in [facility] >5yrs back showed polyps per patient - Objective Vital Signs & Weight: Vital Signs (12 hours) Temp Pulse Pulse Resp BP BP Pulse Ox 04/29/20 11:21 98.7 F 104 H 12 131/61 95 04/29/20 09:25 105 H 129/61 04/29/20 07:26 98.2 F 92 12 119/65 95 04/29/20 03:30 97.5 F L 89 20 128/70 96 Weight Weight 183 lb 12.8 oz Result Diagrams: 04/28/20 23:10 04/28/20 23:10 Additional Labs: Accuchecks 04/29/20 04/29/20 04/29/20 11:36 11:12 07:35 POC Glucose 187 H 46 L* 109 04/29/20 04/29/20 04/29/20 06:35 05:35 02:11 POC Glucose 294 H 60 L 203 H 04/29/20 04/28/20 01:00 22:50 POC Glucose 54 L* 60 L Hospitalist ROS - Medication Medications: Active Medications Generic Name Dose Route Start Last Admin Trade Name Freq PRN Reason Stop Dose Admin Dextrose/Water 25 gm 04/29/20 06:02 04/29/20 11:14 Dextrose 50% SLOW IVP 25 gm PRN PRN Administration Hypoglycemia Enoxaparin Sodium 40 mg 04/29/20 09:00 04/29/20 09:09 Lovenox SC 40 mg 09 MISHEL Administration Famotidine 20 mg 04/29/20 09:00 04/29/20 09:10 Pepcid PO 20 mg BID MISHEL Administration Non-Formulary Medication 1,200 mg 04/29/20 09:00 04/29/20 09:47 Gabapentin [Neurontin] PO 1,200 mg TID MISHEL Administration Polyethylene Glycol 17 gm 04/29/20 09:00 04/29/20 09:07 Miralax PO 17 gm DAILY MISHEL Administration Sodium Chloride 10 ml 04/29/20 09:00 04/29/20 09:10 Flush - Normal Saline IVF 10 ml Q12HR MISHEL Administration Tamsulosin HCl 0.4 mg 04/29/20 09:00 04/29/20 09:10 Flomax PO 0.4 mg DAILY MISHEL Administration Verapamil HCl 180 mg 04/29/20 09:00 04/29/20 09:06 Calan Er PO 180 mg DAILY MISHEL Administration - Exam General Appearance: ill appearing Eye: PERRL, anicteric sclera ENT: no oropharyngeal lesions, dry oral mucosa Neck: supple, no JVD Heart: RRR, no murmur Respiratory: no wheezes, no rales Gastrointestinal: soft, normal bowel sounds, no rigidity, distended Extremities: no cyanosis, no edema Neurological: cranial nerve grossly intact, no focal deficits Hosp A/P (1) Pancreatitis, acute Code(s): K85.90 - ACUTE PANCREATITIS WITHOUT NECROSIS OR INFECTION, UNSP Status: Suspected Qualifiers: Pancreatitis type: unspecified pancreatitis type Acute pancreatitis complication: unspecified Qualified Code(s): K85.90 - Acute pancreatitis without necrosis or infection, unspecified (2) UTI (urinary tract infection) Status: Acute Qualifiers: Urinary tract infection type: acute cystitis Hematuria presence: without hematuria Qualified Code(s): N30.00 - Acute cystitis without hematuria (3) Severe dehydration Code(s): E86.0 - DEHYDRATION Status: Acute (4) Asthma Code(s): J45.909 - UNSPECIFIED ASTHMA, UNCOMPLICATED Status: Chronic Qualifiers: Asthma severity: mild Asthma persistence: intermittent Asthma complication type: uncomplicated Qualified Code(s): J45.20 - Mild intermittent asthma, uncomplicated (5) DM (diabetes mellitus) Code(s): E11.9 - TYPE 2 DIABETES MELLITUS WITHOUT COMPLICATIONS Status: Chronic Qualifiers: Diabetes mellitus type: type 2 Diabetes mellitus complication status: with hypoglycemia Diabetes mellitus complication detail: without coma (6) HLD (hyperlipidemia) Code(s): E78.5 - HYPERLIPIDEMIA, UNSPECIFIED Status: Chronic Qualifiers: Hyperlipidemia type: unspecified Qualified Code(s): E78.5 - Hyperlipidemia , unspecified (7) HTN (hypertension) Code(s): I10 - ESSENTIAL (PRIMARY) HYPERTENSION Status: Chronic Qualifiers: Hypertension type: unspecified Qualified Code(s): I10 - Essential (primary ) hypertension (8) Nephrolithiasis Status: Chronic - Plan CTA results noted, for CT abd with contrast in am aggressive fluid hydration, morphine prn, GI consult is on ceftriaxone, await culture results may switch to D5W if persistently hypoglycemic continue nebs, verapamil, gabapentin, flomax keep her npo tx to medical floor
[2020-04-29 13:58] LABS: SARS-CoV-2 MS2 Positive; SARS-CoV-2 N Gene Negative; SARS-CoV-2 S Gene Negative; SARS-CoV-2 by NAA Not Detected (NotDetected); SARS-CoV-2 orf1ab Negative
[2020-04-29] MEDS: Morphine 2 MG/ML VIAL SLOW IVP PRN ×2 (15:26→17:22)
[2020-04-29] MEDS: Dextrose 5 %-0.45 % NaCl 1,000 ML IV SCH (20:59)
--- NOTE | 2020-04-30 02:53 | CON ---
DATE OF CONSULTATION: 04/29/2020 CHIEF COMPLAINT: Abdominal pain. HISTORY OF PRESENT ILLNESS: Ms. lBack is a 69-year-old woman, who presented to the emergency room last night with abdominal pain. She states that she had gone a couple weeks without a bowel movement. She has had progressive weakness and poor oral intake and could not get back up after she fell in her family had her brought to the emergency room. She has passed some mucus from her rectum around once per day, but has been unable to pass a bowel movement. She took some magnesium citrate yesterday and that is when she started having more severe cramping, aching, epigastric abdominal pain. This extends down toward her periumbilical region. She has also had some vomiting on and off chronically. No obvious solid-food dysphagia, but feels like pills will get stuck at the lower part of her throat. She has been treated for urinary tract infection. She has some difficulty relating all the history in the computer service are down for more extensive history from the chart. PAST MEDICAL HISTORY: Diabetes mellitus type 2, hypertension, asthma, and fibromyalgia. PAST SURGICAL HISTORY: Cholecystectomy. She had ERCP after cholecystectomy. She has had surgery for kidney stones. She has had hysterectomy. Her last colonoscopy was 5 or more years ago and she does recall that polyps were removed. FAMILY HISTORY: Negative for GI malignancies. SOCIAL HISTORY: Rare alcohol. She smoked in the past, but quit over 10 years ago. No drugs. ALLERGIES: CODEINE AND TOPAMAX. MEDICATIONS: Prior to admission; 1. Docusate. 2. Tramadol. 3. Tamsulosin. 4. Zofran. 5. Levofloxacin. 6. Cyclobenzaprine. 7. Gabapentin. 8. Verapamil. REVIEW OF SYSTEMS: Negative x10 systems reviewed except as stated in history of present illness. PHYSICAL EXAMINATION: VITAL SIGNS: Temperature 98.7, pulse 104, and blood pressure 131/61. GENERAL: She is in no acute distress. She is alert and oriented x3. HEENT: Her eyes have no scleral icterus. Oropharynx is clear without lesions. No cervical or supraclavicular lymphadenopathy. LUNGS: Clear to auscultation bilaterally. HEART: Regular rate and rhythm without murmur. ABDOMEN: Tender in the upper abdomen without guarding. Bowel sounds are present. EXTREMITIES: No lower extremity edema. NEUROLOGIC: Cranial nerves are grossly intact. LABORATORY DATA: Creatinine 1.18, bilirubin 0.8, AST 34, ALT 28, alkaline phosphatase 157, albumin 3.3, and lipase 606. Additional labs; her white blood cell count was 16.9, hemoglobin 14.7, and platelets 218. IMAGING: CT scan showed diffuse fatty infiltration of the liver. She was noted to have patulous debris-filled esophagus. Extensive inflammatory stranding was noted in the upper abdomen consistent with pancreatitis. IMPRESSION: 1. Acute pancreatitis. She has lipase well over three times upper limit of normal and inflammatory changes around the pancreas on CT scan. The cause of her pancreatitis is not clear. She denies alcohol use. Her bilirubin and transaminases are normal. She reports that she did have an ERCP after a cholecystectomy around 5 or more years ago. Her alkaline phosphatase is mildly elevated, but again no signs of ongoing biliary obstruction. She had a triglyceride level from August of 2019, that was only 140. Given that her alkaline phosphatase is mildly elevated and she did have endoscopic retrograde cholangiopancreatography for choledocholithiasis apparently in the past. We still need to consider biliary etiology. She does not have obvious medications as a primary cause. 2. Constipation prior to admission. 3. Dysphagia. She does have minimal dysphagia to pills in the lower cervical level. The CT scan shows a fluid and debris-filled esophagus, which could indicate distal esophageal obstruction or achalasia. RECOMMENDATIONS: 1. Continue IV fluids and recheck her labs tomorrow. 2. MRCP tomorrow. Also, MRI with contrast without contrast to rule out evidence of a pancreatic mass as a cause of acute pancreatitis. 3. Recommend upper endoscopy to evaluate the abnormal findings of the esophagus by CT scan. This could be done on Saturday. Of course, ERCP will be done if the MRCP shows signs of choledocholithiasis. 4. Recheck her triglyceride level. Job ID: [id number]
[2020-04-30] MEDS: Dextrose 5 %-0.45 % NaCl 1,000 ML IV SCH ×2 (05:34→18:45)
[2020-04-30 05:45] LABS: #Basophils 0.1 thou/uL (0.0-0.2); #Eosinphils 0.4 thou/uL (0.0-0.7); #Lymphocytes 2.6 thou/uL (1.20-3.40); #Monocytes 1.7 thou/uL (0.11-0.59); #Neutrophils 15.2 thou/uL (1.40-6.50); %Basophils 0.3 % (0.0-1.0); %Eosinophils 1.9 % (0.0-10.0); %Lymphocytes 12.9 % (21.0-51.0); %Monocytes 8.6 % (0.0-10.0); %Neutrophils 76.3 % (42.0-75.0); Hemoglobin 12.8 g/dL (12.0-16.0); Mean Corpuscular HGB CONC 32.9 g/dL (32.0-36.0); Mean Corpuscular Hemoglobin 29.7 pg (27.0-31.0); Mean Corpuscular Volume 90.4 fL (78.0-98.0); Platelet Count 183 thou/uL (130-400); RBC Distribution Width 13.3 % (11.5-14.5); Red Blood Cell (RBC) Count 4.29 mill/uL (4.20-5.40); White Blood Cell (WBC) Count 19.9 thou/uL (4.8-10.8)
[2020-04-30 06:13] LABS: Anion Gap 11 mmol/L (10-20); BUN (Urea Nitrogen) 7 mg/dL (9.8-20.1); Calc. Creatinine Clearance 80 mL/min (70-130); Carbon Dioxide 20 mmol/L (23-31); Chloride 106 mmol/L (98-107); Estimated GFR-MDRD 66; Glucose 124 mg/dL (83-110); Lipase 324 U/L (8-78); Magnesium 1.9 mg/dL (1.6-2.6); Potassium 3.2 mmol/L (3.5-5.1); Sodium 134 mmol/L (136-145)
[2020-04-30] MEDS ORDERED: Potassium Chloride 20 MEQ TAB PO SCH (06:30)
[2020-04-30] MEDS ORDERED: Magnesium 2 GM/50 ML 2 GM in Premix Bag 1 BAG IVPB SCH (06:30)
[2020-04-30] MEDS ORDERED: GABAPENTIN 300 MG PO SCH (10:04)
[2020-04-30] MEDS ORDERED: Gabapentin 300 MG CAP PO SCH (10:15)
[2020-04-30] MEDS: Polyethylene Glycol 3350 17 GM Packet PO SCH (11:16)
[2020-04-30] MEDS: Tamsulosin HCl 0.4 MG CAP PO SCH (11:16)
[2020-04-30] MEDS: Enoxaparin Sodium 40 MG/0.4 ML SYRINGE SC SCH (11:16)
[2020-04-30] MEDS: Famotidine 20 MG TAB PO SCH ×2 (11:16→20:51)
--- NOTE | 2020-04-30 11:32 | EKG ---
Test Reason : Blood Pressure : / mmHG Vent. Rate : 116 BPM Atrial Rate : 116 BPM P-R Int : 132 ms QRS Dur : 084 ms QT Int : 288 ms P-R-T Axes : 020 -19 044 degrees QTc Int : 400 ms Sinus tachycardia Possible Anterior infarct , age undetermined Abnormal ECG Confirmed by LILLIANA BUNN ([id number]), electronic news gathering editor ANDREW SMALLWOOD ([id number]) on 04/30/2020 11:32:10 AM Referred By: Confirmed By:LILLIANA BUNN
[2020-04-30] MEDS: GABAPENTIN 1200 MG PO SCH (11:54)
--- NOTE | 2020-04-30 11:59 | PDOC.HOSPP ---
- Subjective Encounter Date: 04/30/20 Encounter Time: 11:00 Subjective: was lethargic and drowsy around 9am but is waking up per staff after that abdominal pain is better, no nausea - Objective Vital Signs & Weight: Vital Signs (12 hours) Temp Pulse Resp BP Pulse Ox 04/30/20 08:00 98.7 F 110 H 18 99/65 93 L 04/30/20 05:54 98.6 F 112 H 18 101/54 L 92 L 04/30/20 00:00 99.1 F 115 H 18 121/60 94 L Weight Admit Weight 183 lb 12.8 oz Weight 183 lb 12.8 oz Result Diagrams: 04/30/20 05:23 04/30/20 05:23 Additional Labs: Accuchecks 04/30/20 04/30/20 04/29/20 05:45 00:16 22:18 POC Glucose 124 H 105 116 H 04/29/20 04/29/20 04/29/20 20:09 19:09 17:09 POC Glucose 70 83 60 L 04/29/20 12:34 POC Glucose 191 H Hospitalist ROS - Medication Medications: Active Medications Generic Name Dose Route Start Last Admin Trade Name Freq PRN Reason Stop Dose Admin Dextrose/Water 25 gm 04/29/20 06:02 04/29/20 17:22 Dextrose 50% SLOW IVP 25 gm PRN PRN Administration Hypoglycemia Enoxaparin Sodium 40 mg 04/29/20 09:00 04/30/20 11:16 Lovenox SC 40 mg 0900 MISHEL Administration Famotidine 20 mg 04/29/20 09:00 04/30/20 11:16 Pepcid PO 20 mg BID MISHEL Administration Gabapentin 300 mg 04/30/20 10:15 04/30/20 11:16 Neurontin PO 04/30/20 12:00 300 mg NOW MISHEL Administration Dextrose/Sodium Chloride 1,000 mls @ 100 mls/hr 04/29/20 21:00 04/30/20 05:34 D5 1/2 Ns IV 1,000 mls .Q10H MISHEL Administration Polyethylene Glycol 17 gm 04/29/20 09:00 04/30/20 11:16 Miralax PO 17 gm DAILY MISHEL Administration Sodium Chloride 10 ml 04/29/20 09:00 04/30/20 11:54 Flush - Normal Saline IVF Not Given Q12HR MISHEL Tamsulosin HCl 0.4 mg 04/29/20 09:00 04/30/20 11:16 Flomax PO 0.4 mg DAILY MISHEL Administration Verapamil HCl 180 mg 04/29/20 09:00 04/30/20 11:17 Calan Er PO 180 mg DAILY MISHEL Administration - Exam General Appearance: ill appearing Eye: PERRL, anicteric sclera ENT: no oropharyngeal lesions, dry oral mucosa Neck: supple, no JVD Heart: RRR, no murmur Respiratory: no wheezes, no rales, rhonchi Gastrointestinal: soft, normal bowel sounds, no guarding, no rigidity Extremities: no cyanosis, no edema Neurological: cranial nerve grossly intact, no focal deficits Hosp A/P (1) Pancreatitis, acute Code(s): K85.90 - ACUTE PANCREATITIS WITHOUT NECROSIS OR INFECTION, UNSP Status: Acute Qualifiers: Pancreatitis type: unspecified pancreatitis type Acute pancreatitis complication: unspecified Qualified Code(s): K85.90 - Acute pancreatitis without necrosis or infection, unspecified (2) UTI (urinary tract infection) Status: Acute Qualifiers: Urinary tract infection type: acute cystitis Hematuria presence: without hematuria Qualified Code(s): N30.00 - Acute cystitis without hematuria (3) Severe dehydration Code(s): E86.0 - DEHYDRATION Status: Acute (4) Asthma Code(s): J45.909 - UNSPECIFIED ASTHMA, UNCOMPLICATED Status: Chronic Qualifiers: Asthma severity: mild Asthma persistence: intermittent Asthma complication type: uncomplicated Qualified Code(s): J45.20 - Mild intermittent asthma, uncomplicated (5) DM (diabetes mellitus) Code(s): E11.9 - TYPE 2 DIABETES MELLITUS WITHOUT COMPLICATIONS Status: Chronic Qualifiers: Diabetes mellitus type: type 2 Diabetes mellitus complication status: with hypoglycemia Diabetes mellitus complication detail: without coma (6) HLD (hyperlipidemia) Code(s): E78.5 - HYPERLIPIDEMIA, UNSPECIFIED Status: Chronic Qualifiers: Hyperlipidemia type: unspecified Qualified Code(s): E78.5 - Hyperlipidemia , unspecified (7) HTN (hypertension) Code(s): I10 - ESSENTIAL (PRIMARY) HYPERTENSION Status: Chronic Qualifiers: Hypertension type: unspecified Qualified Code(s): I10 - Essential (primary ) hypertension (8) Nephrolithiasis Status: Chronic (9) Obesity (BMI 30.0-34.9) Code(s): E66.9 - OBESITY, UNSPECIFIED Status: Chronic - Plan CTA results noted, prior CT abd done did not reveal pancreatitis or fluid/ ascites?. await mrcp. aggressive fluid hydration, appreciate 's help is on ceftriaxone, await urine culture results, blood cs are -ve, covid is -ve continue nebs, verapamil, gabapentin lower dose due to lethargy this am, flomax start liq diet if ok with and mrcp is normal. family did not want another CT abd as one was done before hospitalization To mobilize as tolerated
--- NOTE | 2020-04-30 13:18 | MRI ---
Exam: Abdomen MRI with and without contrast HISTORY: Evaluate for choledocholith. Pancreatitis. COMPARISON: None. CORRELATION: CT angiogram chest 04/29/[address] abdomen [address] pelvic CT 04/27/2020. FINDINGS: There do appear to be bilateral pleural effusions. Appropriate enhancement and flow in the portal vein. Gallbladder is surgically absent. Appropriate enhancement of the liver, spleen, and adrenal glands. Symmetric enhancement of the kidneys. Bilateral renal cortical cysts are identified. There is mild inflammatory change and fluid involving the body and tail of the pancreas. No discrete pancreatic masses. No evidence of pancreatic duct dilatation. No evidence of intrahepatic biliary dilatation. The common bile duct has a normal appearance. No fill ing defect to suggest choledocholithiasis. IMPRESSION: 1. Findings compatible with pancreatitis. 2. No evidence of choledocholithiasis. Normal caliber common bile duct. No evidence of intrahepatic b iliary dilatation. Transcribed Date/Time: 04/30/2020 1:25 PM
[2020-04-30] MEDS ORDERED: Magnesium Citrate 300 ML BOT PO SCH (15:45)
--- NOTE | 2020-04-30 16:21 | PRG ---
DATE OF SERVICE: 04/30/2020 SUBJECTIVE: Her abdominal pain is improving. She still has not had a bowel movement for 2 weeks per her report. OBJECTIVE: VITAL SIGNS: Temperature 98.0, pulse 108, and blood pressure 114/ 74. GENERAL: She is in no acute distress. Alert and oriented x3. LUNGS: Clear to auscultation bilaterally. HEART: Regular rate and rhythm without murmur. ABDOMEN: stave planer tender in the upper abdomen without guarding. Bowel sounds are present. EXTREMITIES: No lower extremity edema. LABORATORY DATA: White blood cell count was increased to 19.9, hemoglobin 12.8, platelets 183. Creatinine 0.85 and lipase is trending down to 324 from 606. IMPRESSION: 1. Acute pancreatitis, idiopathic, at this point. MRI/MRCP shows no pancreatic mass or evidence of biliary obstruction. She has had a prior cholecystectomy and reports that ERCP was done following the cholecystectomy. Triglycerides were normal. Negative alcohol history. 2. Constipation. 3, Fluid and Debris filled esphagus by CT, r/o obstructing lesion, consider achalasia. RECOMMENDATIONS: 1. We will give a bottle of magnesium citrate today. She has been on MiraLAX. 2. She is tolerating a full liquid diet so far. 3. EGD Saturday. Keep on full liquids for now. Job ID: [id number] [facility]
[2020-04-30] MEDS: Gabapentin 300 MG CAP PO SCH ×2 (17:32→20:51)
[2020-04-30] MEDS ORDERED: cefTRIAXone\\ROCEPHIN 1 GM in Sodium Chloride 0.9% 100 ML IVPB SCH (23:00)
[2020-05-01] MEDS: Dextrose 5 %-0.45 % NaCl 1,000 ML IV SCH ×2 (03:25→14:59)
[2020-05-01 06:19] LABS: Anion Gap 13 mmol/L (10-20); BUN (Urea Nitrogen) 8 mg/dL (9.8-20.1); Calc. Creatinine Clearance 78 mL/min (70-130); Calcium 7.8 mg/dL (7.8-10.44); Carbon Dioxide 17 mmol/L (23-31); Chloride 104 mmol/L (98-107); Estimated GFR-MDRD 64; Glucose 130 mg/dL (83-110); Magnesium 2.5 mg/dL (1.6-2.6); Sodium 130 mmol/L (136-145)
--- NOTE | 2020-05-01 08:00 | PRG ---
DATE OF SERVICE: 04/30/2020 ADDENDUM: IMPRESSION: Abnormal CT scan of the chest showing a dilated debris-filled esophagus. This can be concerning for achalasia, and we want to rule out a distal esophageal obstructing lesion as well. RECOMMENDATIONS: We will plan upper endoscopy possibly for Saturday. Job ID: [id number]
[2020-05-01 08:12] LABS: #Eosinphils 0.3 thou/uL (0.0-0.7); #Lymphocytes 2.7 thou/uL (1.20-3.40); #Monocytes 1.6 thou/uL (0.11-0.59); #Neutrophils 13.7 thou/uL (1.40-6.50); %Basophils 0.2 % (0.0-1.0); %Eosinophils 1.8 % (0.0-10.0); %Lymphocytes 14.5 % (21.0-51.0); %Monocytes 8.8 % (0.0-10.0); %Neutrophils 74.6 % (42.0-75.0); Hemoglobin 11.8 g/dL (12.0-16.0); Mean Corpuscular HGB CONC 31.9 g/dL (32.0-36.0); Mean Corpuscular Hemoglobin 28.8 pg (27.0-31.0); Mean Corpuscular Volume 90.3 fL (78.0-98.0); Platelet Count 186 thou/uL (130-400); RBC Distribution Width 13.4 % (11.5-14.5); Red Blood Cell (RBC) Count 4.11 mill/uL (4.20-5.40); White Blood Cell (WBC) Count 18.3 thou/uL (4.8-10.8)
[2020-05-01] MEDS: Gabapentin 300 MG CAP PO SCH ×3 (08:19→19:31)
[2020-05-01] MEDS: Enoxaparin Sodium 40 MG/0.4 ML SYRINGE SC SCH (08:19)
[2020-05-01] MEDS: Famotidine 20 MG TAB PO SCH ×2 (08:19→19:31)
[2020-05-01] MEDS: Polyethylene Glycol 3350 17 GM Packet PO SCH (08:20)
[2020-05-01] MEDS: Tamsulosin HCl 0.4 MG CAP PO SCH (08:33)
--- NOTE | 2020-05-01 11:47 | PDOC.HOSPP ---
- Subjective Encounter Date: 05/01/20 Encounter Time: 11:00 Subjective: no sob or abd pain is tolerating liq diet but has loss of appetite has not ambulated much c/o pain all over - Objective Vital Signs & Weight: Vital Signs (12 hours) Temp Pulse Resp BP Pulse Ox 05/01/20 08:20 96 05/01/20 07:25 97.6 F 104 H 18 109/65 96 05/01/20 07:02 98 16 96 05/01/20 05:17 97.7 F 98 20 108/66 96 05/01/20 00:45 101 H 16 95 05/01/20 00:00 98.0 F 103 H 18 114/69 95 Weight Admit Weight 183 lb 12.8 oz Weight 183 lb 12.8 oz I&O: 04/30/20 05/01/20 05/02/20 06:59 06:59 06:59 Intake Total 1440 Balance 1440 Result Diagrams: 05/01/20 05:42 05/01/20 05:42 Additional Labs: Accuchecks 05/01/20 04/30/20 04/30/20 05:27 20:01 16:08 POC Glucose 138 H 175 H 184 H 04/30/20 11:39 POC Glucose 154 H Hospitalist ROS - Medication Medications: Active Medications Generic Name Dose Route Start Last Admin Trade Name Freq PRN Reason Stop Dose Admin Albuterol/Ipratropium 3 ml 04/30/20 13:00 05/01/20 07:02 Duoneb NEB 3 ml [id number] MISHEL Administration Dextrose/Water 25 gm 04/29/20 06:02 04/29/20 17:22 Dextrose 50% SLOW IVP 25 gm PRN PRN Administration Hypoglycemia Enoxaparin Sodium 40 mg 04/29/20 09:00 05/01/20 08:19 Lovenox SC 40 mg 0900 MISHEL Administration Famotidine 20 mg 04/29/20 09:00 05/01/20 08:19 Pepcid PO 20 mg BID MISHEL Administration Gabapentin 300 mg 04/30/20 15:00 05/01/20 08:19 Neurontin PO 300 mg TID MISHEL Administration Ceftriaxone Sodium 1 gm/ 100 mls @ 200 mls/hr 04/30/20 23:00 04/30/20 22:23 Sodium Chloride IVPB 05/05/20 23:29 100 mls 2300 MISHEL Administration Dextrose/Sodium Chloride 1,000 mls @ 100 mls/hr 04/29/20 21:00 05/01/20 03:25 D5 1/2 Ns IV 1,000 mls .Q10H MISHEL Administration Insulin Human Lispro 0 units 04/29/20 06:02 04/30/20 18:34 Humalog SC 2 unit .MILD SLIDING SCALE PRN Administration Mild Correctional Scale Polyethylene Glycol 17 gm 04/29/20 09:00 05/01/20 08:20 Miralax PO 17 gm DAILY MISHEL Administration Sodium Chloride 10 ml 04/29/20 09:00 05/01/20 08:33 Flush - Normal Saline IVF Not Given Q12HR MISHEL Tamsulosin HCl 0.4 mg 04/29/20 09:00 05/01/20 08:33 Flomax PO 0.4 mg DAILY MISHEL Administration - Exam General Appearance: awake alert Eye: PERRL, anicteric sclera ENT: no oropharyngeal lesions, moist mucosa Neck: supple, no JVD Heart: RRR, no murmur Respiratory: no wheezes, no rales Gastrointestinal: soft, non-tender, non-distended, normal bowel sounds Extremities: no cyanosis, 1+ LE edema Neurological: cranial nerve grossly intact, no focal deficits Hosp A/P (1) Pancreatitis, acute Code(s): K85.90 - ACUTE PANCREATITIS WITHOUT NECROSIS OR INFECTION, UNSP Status: Acute Qualifiers: Pancreatitis type: unspecified pancreatitis type Acute pancreatitis complication: unspecified Qualified Code(s): K85.90 - Acute pancreatitis without necrosis or infection, unspecified (2) UTI (urinary tract infection) Status: Acute Qualifiers: Urinary tract infection type: acute cystitis Hematuria presence: without hematuria Qualified Code(s): N30.00 - Acute cystitis without hematuria (3) Severe dehydration Code(s): E86.0 - DEHYDRATION Status: Resolved (4) Asthma Code(s): J45.909 - UNSPECIFIED ASTHMA, UNCOMPLICATED Status: Chronic Qualifiers: Asthma severity: mild Asthma persistence: intermittent Asthma complication type: uncomplicated Qualified Code(s): J45.20 - Mild intermittent asthma, uncomplicated (5) DM (diabetes mellitus) Code(s): E11.9 - TYPE 2 DIABETES MELLITUS WITHOUT COMPLICATIONS Status: Chronic Qualifiers: Diabetes mellitus type: type 2 Diabetes mellitus complication status: with hypoglycemia Diabetes mellitus complication detail: without coma (6) HLD (hyperlipidemia) Code(s): E78.5 - HYPERLIPIDEMIA, UNSPECIFIED Status: Chronic Qualifiers: Hyperlipidemia type: unspecified Qualified Code(s): E78.5 - Hyperlipidemia , unspecified (7) HTN (hypertension) Code(s): I10 - ESSENTIAL (PRIMARY) HYPERTENSION Status: Chronic Qualifiers: Hypertension type: unspecified Qualified Code(s): I10 - Essential (primary ) hypertension (8) Nephrolithiasis Status: Chronic (9) Obesity (BMI 30.0-34.9) Code(s): E66.9 - OBESITY, UNSPECIFIED Status: Chronic - Plan CTA results noted, prior CT abd done did not reveal pancreatitis or fluid/ ascites?. mrcp does not show obstruction in her biliary ducts or mass fluid hydration, appreciate 's help is on levaquin, urine culture and blood cs are -ve, covid is -ve continue nebs, gabapentin lower dose due to lethargy, flomax start liq diet, for egd in am family did not want another CT abd as one was done before hospitalization To mobilize as tolerated d/w daughter on 04/30 and have given full updates.
[2020-05-01] MEDS ORDERED: GoLYTELY 4,000 ml Bottle PO SCH (17:00)
--- NOTE | 2020-05-01 18:09 | PRG ---
DATE OF SERVICE: 05/01/2020 SUBJECTIVE: Ms. Black has no abdominal pain. She is tolerating her full liquids well. OBJECTIVE: VITAL SIGNS: Temperature 97.4, pulse is 104, and blood pressure 99/55. GENERAL: She is in no acute distress. Alert and oriented x3. LUNGS: Clear to auscultation bilaterally. HEART: Tachycardic. S1 and S2 without murmur. ABDOMEN: Soft, nontender, and nondistended. Bowel sounds are present. EXTREMITIES: No lower extremity edema. LABORATORY DATA: White blood cell count 18.3, hemoglobin 11.8, platelets 186, creatinine 0.87. IMPRESSION: 1. Acute pancreatitis, idiopathic. This is clinically resolved. 2. Constipation. She still states she has had no abdominal pain over the last two weeks, and the magnesium citrate did not help yesterday. 3. Fluid and debris-filled esophagus by CT scan. We will rule out an obstructing lesion and consider achalasia. RECOMMENDATIONS: 1. We will give GoLYTELY 2 L today. 2. Plan EGD tomorrow and n.p.o. past midnight. Job ID: [id number]
[2020-05-01] MEDS: Acetaminophen 325 MG TAB PO PRN (19:30)
[2020-05-02] MEDS: Dextrose 5 %-0.45 % NaCl 1,000 ML IV SCH ×2 (04:32→12:28)
[2020-05-02 06:14] LABS: #Basophils 0.1 thou/uL (0.0-0.2); #Eosinphils 0.5 thou/uL (0.0-0.7); #Lymphocytes 1.7 thou/uL (1.20-3.40); #Monocytes 1.2 thou/uL (0.11-0.59); #Neutrophils 9.1 thou/uL (1.40-6.50); %Basophils 0.5 % (0.0-1.0); %Eosinophils 4.3 % (0.0-10.0); %Lymphocytes 13.2 % (21.0-51.0); %Monocytes 9.7 % (0.0-10.0); %Neutrophils 72.2 % (42.0-75.0); Hemoglobin 11.3 g/dL (12.0-16.0); Mean Corpuscular HGB CONC 31.4 g/dL (32.0-36.0); Mean Corpuscular Hemoglobin 28.5 pg (27.0-31.0); Mean Corpuscular Volume 90.7 fL (78.0-98.0); Mean Platelet Volume 9.7 fL (7.4-10.4); Platelet Count 187 thou/uL (130-400); RBC Distribution Width 13.4 % (11.5-14.5); Red Blood Cell (RBC) Count 3.98 mill/uL (4.20-5.40); White Blood Cell (WBC) Count 12.5 thou/uL (4.8-10.8)
[2020-05-02 06:33] LABS: Anion Gap 13 mmol/L (10-20); BUN (Urea Nitrogen) 6 mg/dL (9.8-20.1); Calc. Creatinine Clearance 86 mL/min (70-130); Calcium 8.3 mg/dL (7.8-10.44); Carbon Dioxide 20 mmol/L (23-31); Chloride 105 mmol/L (98-107); Estimated GFR-MDRD 72; Glucose 105 mg/dL (83-110); Magnesium 2.1 mg/dL (1.6-2.6); Potassium 3.5 mmol/L (3.5-5.1); Sodium 134 mmol/L (136-145)
[2020-05-02] MEDS ORDERED: Potassium Chloride 20 MEQ TAB PO SCH (07:30)
[2020-05-02] MEDS ORDERED: Fentanyl 100 MCG/2 ML VIAL ONE (08:14)
[2020-05-02] MEDS ORDERED: SUGAMMADEX SODIUM 200 MG/2 ML VIAL ONE (08:42)
[2020-05-02] MEDS ORDERED: Promethazine HCl 25 MG/ML VIAL IM PRN (08:56)
[2020-05-02] MEDS ORDERED: Promethazine HCl 25 MG/ML VIAL SLOW IVP PRN (08:56)
[2020-05-02] MEDS ORDERED: Ondansetron HCl/PF 4 MG/2 ML Vial IVP PRN (08:56)
[2020-05-02] MEDS: Famotidine 20 MG TAB PO SCH ×2 (09:50→21:10)
[2020-05-02] MEDS: Tamsulosin HCl 0.4 MG CAP PO SCH (09:50)
[2020-05-02] MEDS: Gabapentin 300 MG CAP PO SCH ×3 (09:50→21:10)
[2020-05-02] MEDS: Polyethylene Glycol 3350 17 GM Packet PO SCH (09:50)
[2020-05-02] MEDS ORDERED: Bisacodyl 10 MG SUPP PR SCH (10:30)
[2020-05-02] MEDS ORDERED: PROPOFOL 200 MG/20 ML VIAL ONE (11:02)
[2020-05-02] MEDS ORDERED: Lidocaine 1% PF 5 ML VIAL ONE (11:02)
[2020-05-02] MEDS ORDERED: Rocuronium Bromide 10 MG/ML (10ML VIAL) ONE (11:02)
[2020-05-02] MEDS ORDERED: Ondansetron PF 4 MG/2 ML Vial ONE (11:02)
--- NOTE | 2020-05-02 12:09 | PDOC.HOSPP ---
- Subjective Encounter Date: 05/02/20 Encounter Time: 11:20 Subjective: had egd this am is sitting in chair no complaints of abd pain or nausea is waiting for her lunch tray to come - Objective Vital Signs & Weight: Vital Signs (12 hours) Temp Pulse Resp BP Pulse Ox 05/02/20 09:15 97.8 F 101 H 16 116/67 94 L 05/02/20 07:00 97.8 F 100 18 142/81 H 98 05/02/20 04:31 98 F 94 17 129/81 96 05/02/20 01:46 98 16 97 05/02/20 00:40 98.1 F 99 18 118/74 93 L Weight Admit Weight 183 lb 12.8 oz Weight 183 lb 12.8 oz I&O: 05/01/20 05/02/20 05/03/20 06:59 06:59 06:59 Intake Total 1440 3820 Output Total 1350 Balance 1440 2470 Result Diagrams: 05/02/20 05:50 05/02/20 05:50 Additional Labs: Accuchecks 05/02/20 05/01/20 05/01/20 05:56 21:40 17:16 POC Glucose 106 143 H 135 H 05/01/20 11:30 POC Glucose 142 H Hospitalist ROS - Medication Medications: Active Medications Generic Name Dose Route Start Last Admin Trade Name Freq PRN Reason Stop Dose Admin Acetaminophen 650 mg 04/29/20 06:02 05/01/20 19:30 Tylenol PO 650 mg Q4H PRN Administration Headache/Fever/Mild Pain (1-3) Albuterol/Ipratropium 3 ml 04/30/20 13:00 05/02/20 10:54 Duoneb NEB Not Given L1EU-PP MISHEL Dextrose/Water 25 gm 04/29/20 06:02 04/29/20 17:22 Dextrose 50% SLOW IVP 25 gm PRN PRN Administration Hypoglycemia Enoxaparin Sodium 40 mg 04/29/20 09:00 05/01/20 08:19 Lovenox SC 40 mg 0900 MISHEL Administration Famotidine 20 mg 04/29/20 09:00 05/02/20 09:50 Pepcid PO 20 mg BID MISHEL Administration Gabapentin 300 mg 04/30/20 15:00 05/02/20 09:50 Neurontin PO 300 mg TID MISHEL Administration Insulin Human Lispro 0 units 04/29/20 06:02 04/30/20 18:34 Humalog SC 2 unit .MILD SLIDING SCALE PRN Administration Mild Correctional Scale Levofloxacin 500 mg 05/02/20 06:00 05/02/20 04:32 Levaquin PO 500 mg 0600 MISHEL Administration Polyethylene Glycol 17 gm 04/29/20 09:00 05/02/20 09:50 Miralax PO 17 gm DAILY MISHEL Administration Sodium Chloride 10 ml 04/29/20 09:00 05/02/20 10:35 Flush - Normal Saline IVF Not Given Q12HR MISHEL Tamsulosin HCl 0.4 mg 04/29/20 09:00 05/02/20 09:50 Flomax PO 0.4 mg DAILY MISHEL Administration - Exam General Appearance: NAD, awake alert Eye: PERRL, anicteric sclera ENT: no oropharyngeal lesions, moist mucosa Neck: supple, no JVD Heart: RRR, no murmur Respiratory: no wheezes, no rales Gastrointestinal: soft, non-tender, non-distended, normal bowel sounds Extremities: no cyanosis, 1+ LE edema Neurological: cranial nerve grossly intact, no focal deficits Psychiatric: normal affect, A&O x 3 Hosp A/P (1) Pancreatitis, acute Code(s): K85.90 - ACUTE PANCREATITIS WITHOUT NECROSIS OR INFECTION, UNSP Status: Acute Qualifiers: Pancreatitis type: unspecified pancreatitis type Acute pancreatitis complication: unspecified Qualified Code(s): K85.90 - Acute pancreatitis without necrosis or infection, unspecified (2) UTI (urinary tract infection) Status: Acute Qualifiers: Urinary tract infection type: acute cystitis Hematuria presence: without hematuria Qualified Code(s): N30.00 - Acute cystitis without hematuria (3) Severe dehydration Code(s): E86.0 - DEHYDRATION Status: Resolved (4) Asthma Code(s): J45.909 - UNSPECIFIED ASTHMA, UNCOMPLICATED Status: Chronic Qualifiers: Asthma severity: mild Asthma persistence: intermittent Asthma complication type: uncomplicated Qualified Code(s): J45.20 - Mild intermittent asthma, uncomplicated (5) DM (diabetes mellitus) Code(s): E11.9 - TYPE 2 DIABETES MELLITUS WITHOUT COMPLICATIONS Status: Chronic Qualifiers: Diabetes mellitus type: type 2 Diabetes mellitus complication status: with hypoglycemia Diabetes mellitus complication detail: without coma (6) HLD (hyperlipidemia) Code(s): E78.5 - HYPERLIPIDEMIA, UNSPECIFIED Status: Chronic Qualifiers: Hyperlipidemia type: unspecified Qualified Code(s): E78.5 - Hyperlipidemia , unspecified (7) HTN (hypertension) Code(s): I10 - ESSENTIAL (PRIMARY) HYPERTENSION Status: Chronic Qualifiers: Hypertension type: unspecified Qualified Code(s): I10 - Essential (primary ) hypertension (8) Nephrolithiasis Status: Chronic (9) Obesity (BMI 30.0-34.9) Code(s): E66.9 - OBESITY, UNSPECIFIED Status: Chronic - Plan CTA results noted, prior CT abd done did not reveal pancreatitis or fluid/ ascites?. mrcp does not show obstruction in her biliary ducts or mass Had egd done this am, await full procedure results she is on oral solid diet levaquin x 3 days for uti, urine culture and blood cs are -ve, covid is -ve continue nebs, gabapentin lower dose due to lethargy, flomax family did not want another CT abd as one was done before hospitalization To mobilize as tolerated d/w daughter on 04/30 and have given full updates. DC plan per GI advice
--- NOTE | 2020-05-02 12:13 | OP ---
DATE OF PROCEDURE: 05/02/2020 PROCEDURE PERFORMED: Esophagogastroduodenoscopy with esophageal dilation over a guidewire. PREOPERATIVE DIAGNOSIS: Abnormal CT scan of the esophagus with fluid and debris-filled esophagus and dysphagia. DESCRIPTION OF PROCEDURE: Informed consent was obtained from the patient. She was sedated with general anesthesia. The bite block was placed and the endoscope was advanced easily to the second portion of the duodenum and retroflexion was performed in the stomach. The esophagus was normal. The GE junction was normal. The stomach was normal including retroflexed views. The pylorus and first and second portions of the duodenum were normal. I passed an 18 mm Savary dilator through the entire esophagus without resistance. On second-look endoscopy, the esophagus was unchanged. There was no stricture or obstructing lesion. IMPRESSION: 1. Normal EGD. 2. 18 mm Savary dilator was passed through the entire esophagus with no change on second look. There was no stricture or obstructing lesion. Given the findings on CT with a reported fluid in debris-filled esophagus, if she demonstrates future symptoms more suggestive of achalasia, then as an esophageal manometry study could be considered as an outpatient. I do not get the sense that her chronic symptoms are really suggestive of achalasia at this point. 3. Acute pancreatitis. This is noted by elevated lipase and inflammatory changes around the pancreas on the CT of her chest on presentation. This is idiopathic and clinically improved. We will advance her diet. 4. Constipation. She states she has not had a bowel movement a couple of weeks. I ordered magnesium citrate for her. She said she had no bowel movement with that and I ordered GoLYTELY 2 L last night. Nursing tells me that she only took a couple of sips of the magnesium citrate the day before and she refused the GoLYTELY last night. We will need to adjust management to be given with enemas and suppositories at this point instead. If she starts tolerating oral diet well, then she will need to resume more aggressive oral laxatives. RECOMMENDATIONS: 1. Low-fat diet. 2. Dulcolax suppository. 3. If she does tolerate oral, then I will recommend repeat trial of the magnesium citrate. 4. Please note that she did have an MRI of the pancreas with MRCP that did not show any evidence of pancreatic mass. There is no evidence of choledocholithiasis and showed a normal caliber common bile duct. She has had a prior cholecystectomy. 5. When she is tolerating an adequate diet and having achieved a bowel movement, then she should be ready for discharge. Job ID: [id number]
[2020-05-02] MEDS: Acetaminophen 325 MG TAB PO PRN (21:17)
[2020-05-03] MEDS: Dextrose 5 %-0.45 % NaCl 1,000 ML IV SCH (01:42)
[2020-05-03 07:39] VITALS: BP 123/76; TEMP 97.6
[2020-05-03] MEDS: Famotidine 20 MG TAB PO SCH (08:27)
[2020-05-03] MEDS: Polyethylene Glycol 3350 17 GM Packet PO SCH (08:27)
[2020-05-03] MEDS: Tamsulosin HCl 0.4 MG CAP PO SCH (08:27)
[2020-05-03] MEDS: Gabapentin 300 MG CAP PO SCH (08:27)
[2020-05-03] MEDS: Enoxaparin Sodium 40 MG/0.4 ML SYRINGE SC SCH (08:28)
[2020-05-03 10:25] LABS: Hemoglobin 11.4 g/dL (12.0-16.0); Mean Corpuscular HGB CONC 33.2 g/dL (32.0-36.0); Mean Corpuscular Hemoglobin 29.5 pg (27.0-31.0); Mean Corpuscular Volume 88.9 fL (78.0-98.0); Mean Platelet Volume 8.8 fL (7.4-10.4); Platelet Count 236 thou/uL (130-400); RBC Distribution Width 13.4 % (11.5-14.5); Red Blood Cell (RBC) Count 3.87 mill/uL (4.20-5.40)
[2020-05-03 10:44] LABS: Anion Gap 14 mmol/L (10-20); BUN (Urea Nitrogen) 10 mg/dL (9.8-20.1); Calc. Creatinine Clearance 75 mL/min (70-130); Calcium 9.2 mg/dL (7.8-10.44); Carbon Dioxide 22 mmol/L (23-31); Chloride 102 mmol/L (98-107); Estimated GFR-MDRD 61; Glucose 140 mg/dL (83-110); Sodium 134 mmol/L (136-145)
--- NOTE | 2020-05-03 12:41 | ULT ---
THYROID ULTRASOUND: Date: 05/03/2020 INDICATION: Thyroid nodule. FINDINGS: Both lobes appear homogeneous. Right lobe measures 4.1 x 2.0 x 1.1 cm. Left lobe measures 4.0 x 1.8 x 1.5 cm. In the right lobe, there is a hypoechoic nodule, superior aspect, measuring 6-8 mm. In the left lobe, there is a cystic nodule in the mid left lobe measuring 4-6 mm. There is a heterogeneous nodule in the mid inferior left lobe measuring 8-10 mm. IMPRESSION: There are bilateral thyroid nodules as delineated above. The largest is inferior left lobe measuring up to 1.0 cm. Recommend follow-up thyroid ultrasound in 6 months to confirm stability. POS: ROCÍO
--- NOTE | 2020-05-04 10:42 | DIS ---
DATE OF ADMISSION: 04/29/2020 DATE OF DISCHARGE: 05/03/2020 DISCHARGE DIAGNOSES: 1. Acute pancreatitis. 2. Syncope secondary to hypoglycemia 3. Constipation. 4. Thyroid nodule. 5. Dysuria. 6. Dysphagia with dilation. CONSULTATIONS: Dr. Jason Padilla, GI. PROCEDURES: EGD with dilation. BRIEF HISTORY OF PRESENT ILLNESS: This is a 69-year-old female with a past medical history of diabetes and hypertension, who presents to the emergency room after she had a syncopal episode and was found to be hypoglycemic. The patient reported that she was only eating one meal a day due to fullness in her abdomen. She does take glipizide at home for diabetes and states that she passed up. She states her blood sugar was in the 40s on evaluation initially. She presented to the ER for further workup. Her D-dimer was elevated. The CTA which was negative for PE. She did report some burning pain with urination with a white count of 16, so she was admitted for a possible UTI. HOSPITAL COURSE: Abdominal pain secondary to acute pancreatitis: The patient had a lipase of 606 on 04/29. MRI of her abdomen was done which showed findings consistent with pancreatitis. There was no choledocholithiasis. The patient was initially kept n.p.o., on the day of discharge is tolerating a solid diet. Dysphagia: The patient reported that food was often getting stuck in her throat. She underwent an EGD, which showed no significant stricture, however, 18 mm dilation was done. On the day of discharge, patient was eating like thin sausage and had no dysphagia evident. Constipation: The patient reported that she had not had a bowel movement for 2 weeks prior to admission. She was given a laxative on the hospital and had a bowel movement. She will be discharged with Maalox p.r.n. Thyroid nodule: The patient was incidentally noted to have a thyroid nodule on her CTA of the chest. Thyroid ultrasound was done, which showed bilateral thyroid nodule with inferior left lobe measuring up to 1 cm. She was advised to have a followup thyroid ultrasound in 6 months. Syncope secondary to hypoglycemia: The patient initially presented with blood sugar in the 40s. This is likely from poor p.o. intake. She did have an echo which was normal. Her glipizide was discontinued on discharge and she was switched to metformin. I spoke with the daughter who states the patient has not had any reaction to metformin in the past. The patient had a cortisol level checked which was normal. Dysuria: The patient was empirically started on antibiotics for possible UTI. However, urine culture was consistent with UTI. However, given her dysuria, I will go ahead and treat her with one additional day of Levaquin to complete a three day course of antibiotics. DISCHARGE PHYSICAL EXAMINATION: VITAL SIGNS: Temperature 97.6, heart rate 91, respiratory rate 18, O2 saturation 95% on room air, blood pressure 123/76. GENERAL: The patient is alert, awake, and oriented x3. The patient states that it is April 2025. She was aware that she is in [facility] in the [facility]. CVS: Regular rate and rhythm with no murmurs, rubs, or gallops. ABDOMEN: Abdomen is slightly distended with mild fullness. However, there is no significant tenderness on exam. EXTREMITIES: No edema. LABORATORY DATA: CBC 05/03: White count 10.0, hemoglobin 11.4, hematocrit 34.4, platelet count of 236. BMP 05/02: Shows mild hyponatremia with sodium 134, bicarb of 20, creatinine 0.79. Rest of BMP is unremarkable. LFTs: Alkaline phosphatase is mildly elevated at 157. AST 34, ALT 28. Glucose: Ranged from 40 to 105. IMAGING: Chest x-ray 04/28: Shows no evidence of acute disease. CTA thorax 04/29: 11 mm nodule within the left thyroid lobe. No PE. Extensive inflammatory stranding in the upper abdomen concerning for pancreatitis. MRI abdomen 04/30: Compatible with pancreatitis. Thyroid ultrasound on 05/03: There are bilateral thyroid nodules. The largest of the inferior left lobe measuring up to 1 cm. DISCHARGE CONDITION: Stable. ACTIVITY: As tolerated. DIET: Regular diet. DISCHARGE MEDICATIONS: New prescription: 1. Metformin 500 mg p.o. b.i.d. 2. Levaquin 750 mg p.o. daily x1 tablet. 3. MiraLAX 17 g p.o. daily. Continue medications: 1. Flomax 0.4 mg p.o. daily. 2. Zofran 4 mg p.o. q.6 hours p.r.n. 3. Gabapentin 1200 mg p.o. t.i.d. (the patient states that she does not take this everyday and takes it p.r.n. 4. Flexeril 20 mg tablet p.o. at bedtime. Discontinue medications: Glipizide. DISCHARGE INSTRUCTIONS: The patient should follow up with her PCP in a week. Consider re-evaluating patient's intolerance to metformin. Consider a repeat alkaline phosphatase as an outpatient and follow up hyponatremia. Patient needs a repeat thyroid ultrasound in 6 months. Also consider decreasing flexeril dose and gabapentin dose since this may be contributing to falls. Job ID: [id number] [facility]
--- NOTE | 2020-05-04 11:36 | PQF ---
CLINICAL DOCUMENTATION CLARIFICATION FORM: Dear Dr. Owusu Date: 05/04/20 Please exercise your independent, professional judgment in responding to the clarification form. Clinical indicators are provided on the bottom of this form for your review. Please check appropriate box(es): [ ] Sepsis due to: [ ] Localized infection without sepsis [ x ] SIRS due to non-infectious process (please specify etiology) ___acute pancreatitis [x ] with organ dysfunction [ ] without organ dysfunction [ ] Other diagnosis [ ] Unable to determine In addition, please specify: Present on Admission (POA): [ x ] Yes [ ] No [ ] Unable to determine For continuity of documentation, please document condition throughout progress notes and discharge summary. Thank You. H&P (ATERNO): SEPSIS DUE TO UTI ER VITALS: PULSE 117 BP 90/42 RR 22 WBC 04/28: 16.9 WBC 04/30: 19.9 RISKS: UTI (H&P - ATERNO) ACUTE PANCREATITIS (PN 04/30- AMAIRANI) TREATMENT: IV FLUIDS (ER) / (05/02-05/03) IV ROCEPHIN (ER) LEVAQUIN (05/02-05/03) BLOOD & URINE CULTURES 04/29 GI CONSULT 04/29 CDS Signature: Dia Muñiz RN Phone #: [phone] Date: 05/04/20 This is a permanent part of the Medical Record [facility]
== END 2020-05-03 15:53 | disposition home or self-care (01) | DRG 438 ==
LOC: ERS 22:37 → 2NO 04-29 01:45 → T4-B 04-29 13:40
PROVIDERS: ADMIT Internal Medicine; ATTEND Internal Medicine
PROC: 0D758ZZ Dilation of Esophagus, Via Natural or Artificial Opening Endoscopic (ICD-10-PCS; principal; 2020-05-02)
DX: K85.00 Idiopathic acute pancreatitis without necrosis or infection (principal); R65.11 Systemic inflammatory response syndrome (SIRS) of non-infectious origin with acute organ dysfunction; G93.41 Metabolic encephalopathy; I24.8 Other forms of acute ischemic heart disease; N30.00 Acute cystitis without hematuria; E87.1 Hypo-osmolality and hyponatremia; Z20.828 Contact with and (suspected) exposure to other viral communicable diseases; K59.00 Constipation, unspecified; E04.1 Nontoxic single thyroid nodule; R13.10 Dysphagia, unspecified; E11.649 Type 2 diabetes mellitus with hypoglycemia without coma; E78.5 Hyperlipidemia, unspecified; I10 Essential (primary) hypertension; M19.90 Unspecified osteoarthritis, unspecified site; M79.7 Fibromyalgia; E66.9 Obesity, unspecified; E86.0 Dehydration; J45.20 Mild intermittent asthma, uncomplicated; N20.0 Calculus of kidney; Z79.899 Other long term (current) drug therapy; Z90.49 Acquired absence of other specified parts of digestive tract; Z90.710 Acquired absence of both cervix and uterus; Z90.89 Acquired absence of other organs; Z87.891 Personal history of nicotine dependence; Z88.5 Allergy status to narcotic agent; Z88.8 Allergy status to other drugs, medicaments and biological substances; Z68.34 Body mass index [BMI] 34.0-34.9, adult
CPT/HCPCS: 36415; 36416; 51701; 71045; 71275; 74177; 74183; 76536; 80048; 80053; 81003; 81015; 82533; 82550; 83605; 83690; 83735; 83880; 84478; 84484; 85025; 85027; 85379; 87040; 87086; 87635; 93005; 93306; 94640; 94760; 96361; 96365; 96375; J0696; J1650; J1885; J2270; J2405; J2704; J3010; J3475; J3490; J7620; Q9967; U0003

== ENCOUNTER 2020-07-09 10:25 | Emergency (ER) | payer MEDICAID, MEDICARE ==
[2020-07-09] MEDS ORDERED: Ondansetron PF 4 MG/2 ML Vial ONE (10:55)
[2020-07-09] MEDS ORDERED: Morphine 4 MG/ML VIAL ONE (10:55)
[2020-07-09 11:05] LABS: #Basophils 0.1 thou/uL (0.0-0.2); #Eosinphils 0.3 thou/uL (0.0-0.7); #Lymphocytes 2.7 thou/uL (1.20-3.40); #Monocytes 0.8 thou/uL (0.11-0.59); #Neutrophils 4.8 thou/uL (1.40-6.50); %Basophils 0.9 % (0.0-1.0); %Eosinophils 3.6 % (0.0-10.0); %Lymphocytes 31.3 % (21.0-51.0); %Neutrophils 55.3 % (42.0-75.0); Mean Corpuscular HGB CONC 33.2 g/dL (32.0-36.0); Mean Corpuscular Hemoglobin 30.3 pg (27.0-31.0); Mean Corpuscular Volume 91.3 fL (78.0-98.0); Mean Platelet Volume 7.8 fL (7.4-10.4); Platelet Count 305 thou/uL (130-400); RBC Distribution Width 13.9 % (11.5-14.5); Red Blood Cell (RBC) Count 4.63 mill/uL (4.20-5.40); White Blood Cell (WBC) Count 8.6 thou/uL (4.8-10.8)
[2020-07-09 11:28] LABS: ALT (SGPT) 19 U/L (8-55); AST (SGOT) 12 U/L (5-34); Albumin 3.8 g/dL (3.4-4.8); Alkaline Phosphatase 112 U/L (40-110); Anion Gap 15 mmol/L (10-20); BUN (Urea Nitrogen) 17 mg/dL (9.8-20.1); Bilirubin, Total 0.4 mg/dL (0.2-1.2); Calc. Creatinine Clearance 0 mL/min (70-130); Calcium 9.6 mg/dL (7.8-10.44); Carbon Dioxide 24 mmol/L (23-31); Chloride 104 mmol/L (98-107); Estimated GFR-MDRD 59; Globulin 2.7 g/dL (2.4-3.5); Glucose 131 mg/dL (83-110); Potassium 3.9 mmol/L (3.5-5.1); Protein, Total 6.5 g/dL (6.0-8.3); Sodium 139 mmol/L (136-145)
[2020-07-09 11:38] LABS: Bilirubin Negative (Negative); Blood, Urine Negative (Negative); Clarity Clear (Clear); Glucose, Urine (Dipstick) 100 mg/dL (Negative); Ketone, Urine Negative (Negative); Leukocyte Negative Leu/uL (Negative); Nitrite Negative (Negative); Protein, Urine (Dipstick) 10 mg/dL (Neg-Trace); Specific Gravity, Urine 1.029 (1.002-1.036); Urobilinogen Normal mg/dL (Less than 2); pH, Urine 5.5 (5.0-9.0)
--- NOTE | 2020-07-09 12:33 | CT ---
EXAM: Abdomen and pelvic CT scan with contrast: HISTORY: Low back pain and right leg pain COMPARISON: None FINDINGS: Lungs:2 small less than 0.4 cm pleural-based nodules in the right lower lobe, stable. Liver: Unremarkable. Gallbladder:Status post cholecystectomy. Common bile duct:Mild postcholecystectomy dilatation without intrahepatic dilatation. Pancreas:Unremarkable Spleen:Unremarkable. Adrenal glands:Unremarkable. Kidneys:No renal calculus or acute obstruction. Evidence for small bilateral renal cysts. No evidence for bowel obstruction. Aorta:Atherosclerosis Spine:Generalized disc degenerative disease with disc osteophytosis and facet arthrosis with multilev el canal, lateral recess, and foraminal stenosis of the lumbar spine particularly right and left foramina at L4-L5 and L5-S1. If that is a concern, follow-up MRI study might be of benefit. No CT evidence for acute appendicitis. The urinary bladder is unremarkable. Reproductive system:Unremarkable as visualized. Hernias:Bilateral fat-containing inguinal hernias. No abscess, adenopathy, or abnormal fluid collection within the abdomen or pelvis. IMPRESSION: No significant acute process in the abdomen or pelvis. Lumbar spine spondylosis with variable severity multilevel canal, lateral recess and foraminal stenos is. Other findings as above.
[2020-07-09] MEDS ORDERED: Iopamidol-370 76% 500 ML 1 ML ONE (14:25)
== END 2020-07-09 13:00 | disposition home or self-care (01) ==
LOC: ERS 10:25
DX: M43.16 Spondylolisthesis, lumbar region (principal); E11.9 Type 2 diabetes mellitus without complications; I10 Essential (primary) hypertension; J45.909 Unspecified asthma, uncomplicated; M79.7 Fibromyalgia; Z87.891 Personal history of nicotine dependence; Z79.899 Other long term (current) drug therapy
CPT/HCPCS: 36415; 51701; 74177; 80053; 81003; 85025; 87086; 96374; 96375; J2270; J2405; Q9967

== ENCOUNTER 2020-09-08 09:40 | Outpatient (CLI) | payer MEDICARE, MEDICAID ==
[2020-09-08 17:03] LABS: SARS-CoV-2 MS2 Positive; SARS-CoV-2 N Gene Negative; SARS-CoV-2 S Gene Negative; SARS-CoV-2 by NAA Not Detected (NotDetected); SARS-CoV-2 orf1ab Negative
== END 2020-09-08 09:41 | disposition home or self-care (01) ==
LOC: LABBT 09:40
PROVIDERS: ATTEND Specialist
DX: Z01.812 Encounter for preprocedural laboratory examination (principal); Z20.822 Contact with and (suspected) exposure to COVID-19
CPT/HCPCS: 87635; U0003

== ENCOUNTER 2020-09-12 09:43 | Day surgery (SDC) | payer MEDICARE, MEDICAID ==
[2020-09-08 12:33] VITALS: BMI 33.6
[2020-09-12] MEDS ORDERED: Dexamethasone 20 MG/5 ML VIAL ONE (11:23)
[2020-09-12] MEDS ORDERED: PROPOFOL 200 MG/20 ML VIAL ONE (11:23)
[2020-09-12] MEDS ORDERED: Ondansetron PF 4 MG/2 ML Vial ONE (11:23)
[2020-09-12] MEDS ORDERED: Fentanyl 100 MCG/2 ML VIAL ONE (12:26)
--- NOTE | 2020-09-12 12:38 | MRI ---
MRI LUMBAR SPINE NONCONTRAST: DATE: 09/12/2020 HISTORY: 69-year-old female with lumbar radiculopathy and chronic low back pain COMPARISON: None FINDINGS: 5 lumbar-type vertebrae. Vertebral body heights are maintained. No high-grade scoliosis. Hemangiomas (venous malformations of bone) in the vertebral bodies at multiple levels. The largest is at L1. No bone marrow edema. Conus medullaris terminates at lower L1 level. Developmentally small caliber spinal canal exacerbated by spondylosis. T12-L1:Mild bilateral facet DJD. No high-grade disc space narrowing. No high-grade central spinal can al stenosis. Mild bilateral neural foraminal stenosis. L1-2:Mild bilateral facet DJD. Mild disc bulge. Mild central spinal canal stenosis. Mild bilateral ne ural foraminal stenosis. Mild disc space narrowing. L2-3:Mild disc bulge, larger than the one at L1-2. Mild to moderate disc space narrowing. Mild to mod erate bilateral degenerative facet hypertrophy. Mild to moderate right and mild left neural foraminal stenosis. Moderate central spinal canal stenosis with crowding of cauda equina. L3-4:Mild disc space narrowing. Diffuse disc bulge. Moderate right and mild to moderate left neural f oraminal stenosis. Moderate to severe bilateral facet DJD. Moderate central spinal canal stenosis and bilateral lateral recess stenosis. L4-5:Severe bilateral facet DJD causes minimal grade 1 anterolisthesis of L4 on L5. Moderate disc spa ce narrowing. Diffuse disc bulge. Mild right neural foraminal stenosis. Moderate to severe left neural foraminal stenosis. Lateral recess stenosis bilaterally. Ligamentum flavum thickening. Moderat e central spinal canal stenosis. L5-S1:Somewhat severe disc space narrowing. Large diffuse disc bulge. Moderate bilateral neural stephen inal stenosis. Left lateral recess stenosis. No central spinal canal stenosis. Mild bilateral facet DJD. IMPRESSION: 1) lumbar spondylosis, with multilevel mild and moderate degenerative disc disease, and facet osteoar throsis, which is worst at L4-5 (severe). 2) moderate central spinal canal stenosis at L2-3, L3-4, and L4-5 (worst at L2-3) 3) multilevel neural foraminal stenosis, worst on the left at L4-5..
--- NOTE | 2020-09-12 13:15 | MRI ---
MRI CERVICAL SPINE WITHOUT CONTRAST: INDICATION: Cervical stenosis. Neck pain. COMPARISON: MRI cervical spine dated 05/26/2019. FINDINGS: Cervical vertebrae maintain height and alignment. Vertebral body signal is normal. Multilevel degenerative disk changes are seen. There is loss of disk space at all levels below the C 2-3 disk. Anterior and lateral osteophytes with posterior disk bulge and spondylosis at all levels. Findings do not appear significantly changed from the 05/26/2019 study. C2-3: Posterior disk bulge and spondylosis efface the anterior subarachnoid space and abut the anter ior cord. The posterior disk bulge at this level appears to have progressed since the 2019 exam at w hich time it did not abut the anterior cord. No foraminal stenosis. C3-4: Posterior disk bulge with spondylosis mildly compress the anterior cord producing mild flatten ing of the anterior cord. Bilateral foraminal stenosis due to facet and uncinate hypertrophy. Findings are similar to the prior study. C4-5: Prominent disk bulge with spondylosis mildly compresses the anterior cord producing mild sandro ening of the anterior cord. Bilateral foraminal narrowing more severe on the right due to facet and uncinate hypertrophy. Findings appear unchanged from the prior study. C5-6: Posterior disk bulge with spondylosis flatten the thecal sac and efface the anterior subarachn oid space. No significant cord impingement. Bilateral foraminal narrowing more severe on the right due to facet and uncinate hypertrophy. Not significantly changed from prior exam. C6-7: Disk bulge and spondylosis flatten the thecal sac and efface the anterior subarachnoid space. No cord impingement. Mild foraminal narrowing bilaterally. Not significantly changed from prior ex am. C7-T1: Disk bulge and spondylosis flatten the thecal sac and efface the anterior subarachnoid space. No cord impingement. Mild foraminal narrowing due to uncinate hypertrophy. Cervical cord signal appears normally maintained. IMPRESSION: Multilevel degenerative disk changes with posterior disk and spondylitic changes impinging in the sp inal canal at all levels. There is cord compression at C3-4 and C4-5 as described above. POS: AGW
== END 2020-09-12 13:35 | disposition home or self-care (01) ==
LOC: SDC/OP 09:43
PROVIDERS: ATTEND Specialist
DX: M48.02 Spinal stenosis, cervical region (principal); M47.22 Other spondylosis with radiculopathy, cervical region; M48.062 Spinal stenosis, lumbar region with neurogenic claudication; M47.26 Other spondylosis with radiculopathy, lumbar region; M51.16 Intervertebral disc disorders with radiculopathy, lumbar region; M43.16 Spondylolisthesis, lumbar region; G95.20 Unspecified cord compression; M19.90 Unspecified osteoarthritis, unspecified site; J45.909 Unspecified asthma, uncomplicated; E11.9 Type 2 diabetes mellitus without complications; Z87.891 Personal history of nicotine dependence; Z79.84 Long term (current) use of oral hypoglycemic drugs; Z79.899 Other long term (current) drug therapy; Z88.5 Allergy status to narcotic agent; Z88.8 Allergy status to other drugs, medicaments and biological substances
CPT/HCPCS: 72141; 72148; J1100; J2405; J2704; J3010

== ENCOUNTER 2020-10-06 09:28 | Outpatient (CLI) | payer MEDICARE, MEDICAID ==
--- NOTE | 2020-10-06 13:32 | RAD ---
CERVICAL SPINE SERIES 5 VIEWS WITH FLEXION AND EXTENSION: HISTORY: Neck pain. FINDINGS: Bones are demineralized. There are severe degenerative changes of the spine. There is marked disk n arrowing from the C3-4 to the C6-7 level. Moderate degenerative facet changes are noted. No malalig nment. IMPRESSION: Severe osteoarthritic changes of the spine. POS: CHRISTY
--- NOTE | 2020-10-06 13:32 | RAD ---
LUMBAR SPINE SERIES FOUR VIEWS INCLUDING FLEXION AND EXTENSION: 10/06/20 HISTORY: Back pain. The bones are severely demineralized. Vertebral bodies are normal in height. Disc narrowing at all ve rtebral body levels. This is most pronounced at L5-S1. Grade I spondylolisthesis of L4 on L5 is prese nt which is not changed between these flexion and extension views. Severe degenerative facet changes are noted. IMPRESSION: Arthritic changes of the spine. POS: CHRISTY
== END 2020-10-06 09:29 | disposition home or self-care (01) ==
LOC: RAD 09:28
PROVIDERS: ATTEND Neurological Surgery
DX: M48.02 Spinal stenosis, cervical region (principal); M43.16 Spondylolisthesis, lumbar region; M47.812 Spondylosis without myelopathy or radiculopathy, cervical region; M47.816 Spondylosis without myelopathy or radiculopathy, lumbar region
CPT/HCPCS: 72050; 72120

== ENCOUNTER 2021-01-19 08:09 | Day surgery (SDC) | payer MEDICARE, MEDICAID ==
[2021-01-18 11:45] VITALS: BMI 39.6
[2021-01-19] MEDS ORDERED: Thrombin 5000 UNITS/5 ML VIAL ONE ×2 (10:29→10:30)
[2021-01-19] MEDS ORDERED: Fentanyl 100 MCG/2 ML VIAL ONE ×4 (11:05→16:31)
[2021-01-19] MEDS ORDERED: Glycopyrrolate 0.2 MG/ML 5 ML SYRINGE ONE (11:35)
[2021-01-19] MEDS ORDERED: Dexamethasone 20 MG/5 ML VIAL ONE (11:35)
[2021-01-19] MEDS ORDERED: PHENYLEPHRINE-NS 100 MCG/ML 10 ML SYRINGE ONE (11:35)
[2021-01-19] MEDS ORDERED: PROPOFOL 200 MG/20 ML VIAL ONE (11:35)
[2021-01-19] MEDS ORDERED: Ondansetron PF 4 MG/2 ML Vial ONE (11:35)
[2021-01-19] MEDS ORDERED: Lidocaine 1% PF 5 ML VIAL ONE (11:35)
[2021-01-19] MEDS ORDERED: Rocuronium Bromide 10 MG/ML (10ML VIAL) ONE (11:35)
[2021-01-19] MEDS ORDERED: SUGAMMADEX SODIUM 500 MG/5 ML VIAL ONE (15:20)
[2021-01-19] MEDS ORDERED: Morphine 2 MG/ML VIAL ONE (18:19)
[2021-01-19] MEDS ORDERED: HYDROcodone/Acetaminophen 5/325 mg Tablet ONE (18:19)
== END 2021-01-19 19:35 | disposition home or self-care (01) ==
LOC: EDBD → SDC 08:09
PROVIDERS: ATTEND Neurological Surgery
PROC: 0RG20A0 Fusion of 2 or more Cervical Vertebral Joints with Interbody Fusion Device, Anterior Approach, Anterior Column, Open Approach (ICD-10-PCS; principal; 2021-01-19)
PROC: 0RT30ZZ Resection of Cervical Vertebral Disc, Open Approach (ICD-10-PCS; 2021-01-19)
DX: M50.01 Cervical disc disorder with myelopathy, high cervical region (principal); M48.02 Spinal stenosis, cervical region; E11.9 Type 2 diabetes mellitus without complications; M19.90 Unspecified osteoarthritis, unspecified site; M10.9 Gout, unspecified; M81.0 Age-related osteoporosis without current pathological fracture; I11.0 Hypertensive heart disease with heart failure; I50.9 Heart failure, unspecified; J45.909 Unspecified asthma, uncomplicated; E06.3 Autoimmune thyroiditis; E66.9 Obesity, unspecified; Z68.39 Body mass index [BMI] 39.0-39.9, adult; Z79.84 Long term (current) use of oral hypoglycemic drugs; Z79.899 Other long term (current) drug therapy; Z87.891 Personal history of nicotine dependence; Z88.5 Allergy status to narcotic agent; Z88.8 Allergy status to other drugs, medicaments and biological substances; Z91.048 Other nonmedicinal substance allergy status
CPT/HCPCS: 20930; 20936; 22551; 22552; 22845; 22853 ×2; 76000; J2270; C1713; C1776; J0690; J1100; J2405; J2704; J3010; J3490

== ENCOUNTER 2021-01-27 19:36 | Inpatient (IN) | payer MEDICARE, MEDICAID ==
[2021-01-27 20:34] LABS: #Basophils 0.1 thou/uL (0.0-0.2); #Eosinphils 0.3 thou/uL (0.0-0.7); #Lymphocytes 4.5 thou/uL (1.20-3.40); #Monocytes 2.1 thou/uL (0.11-0.59); #Neutrophils 11.7 thou/uL (1.40-6.50); %Basophils 0.4 % (0.0-1.0); %Eosinophils 1.9 % (0.0-10.0); %Lymphocytes 23.9 % (21.0-51.0); %Monocytes 11.2 % (0.0-10.0); %Neutrophils 62.7 % (42.0-75.0); Hemoglobin 16.2 g/dL (12.0-16.0); Mean Corpuscular HGB CONC 32.1 g/dL (32.0-36.0); Mean Corpuscular Hemoglobin 29.5 pg (27.0-31.0); Mean Platelet Volume 8.3 fL (7.4-10.4); Platelet Count 413 thou/uL (130-400); RBC Distribution Width 11.8 % (11.5-14.5); White Blood Cell (WBC) Count 18.6 thou/uL (4.8-10.8)
[2021-01-27 20:59] LABS: ALT (SGPT) 36 U/L (8-55); AST (SGOT) 16 U/L (5-34); Alkaline Phosphatase 118 U/L (40-110); Anion Gap 17 mmol/L (10-20); BUN (Urea Nitrogen) 30 mg/dL (9.8-20.1); Bilirubin, Total 0.7 mg/dL (0.2-1.2); Calc. Creatinine Clearance 0 mL/min (70-130); Calcium 10.4 mg/dL (7.8-10.44); Carbon Dioxide 18 mmol/L (23-31); Chloride 106 mmol/L (98-107); Globulin 3.2 g/dL (2.4-3.5); Glucose 252 mg/dL (83-110); Potassium 4.5 mmol/L (3.5-5.1); Protein, Total 7.2 g/dL (5.8-8.1); Sodium 136 mmol/L (136-145)
[2021-01-27] MEDS ORDERED: Piperacillin/Tazobactam 4.5 GM VIAL ONE (21:24)
[2021-01-27 21:36] LABS: Bacteria/HPF None Seen HPF (None Seen); Bilirubin Negative (Negative); Blood, Urine Negative (Negative); Clarity Clear (Clear); Glucose, Urine (Dipstick) 200 mg/dL (Negative); Ketone, Urine Negative (Negative); Leukocyte Negative Leu/uL (Negative); Mucous/LPF Rare LPF (<2+); Nitrite Negative (Negative); Protein, Urine (Dipstick) 70 mg/dL (Neg-Trace); RBC/HPF 0-3 HPF (0-3); Squamous Epithelial 0-3 HPF (0-3); Urobilinogen Normal mg/dL (Less than 2); WBC/HPF 0-3 HPF (0-3); pH, Urine 5.5 (5.0-9.0)
[2021-01-27] MEDS ORDERED: Vancomycin 1.5 GRAM/300 ML BAG 1.5 GM in Premix Bag 1 BAG IVPB SCH (22:30)
[2021-01-27] MEDS ORDERED: traZODone HCl 50 MG TAB PO PRN (23:36)
[2021-01-27] MEDS ORDERED: Melatonin 3 MG TAB PO PRN (23:36)
[2021-01-27] MEDS ORDERED: Sodium Chloride 0.9% 1,000 ML IV SCH (23:45)
[2021-01-27] MEDS ORDERED: Ondansetron ODT 4 MG TAB PO PRN (23:49)
[2021-01-27] MEDS ORDERED: Ondansetron PF 4 MG/2 ML Vial IVP PRN (23:49)
[2021-01-27 23:50] LABS: Lactic Acid 3.4 mmol/L (0.5-2.2)
[2021-01-27] MEDS ORDERED: HumaLOG 300 UNITS/3 ML VIAL SC PRN ×2 (23:52)
[2021-01-27] MEDS ORDERED: Dextrose 50% Abboject 50 ML SYRINGE SLOW IVP PRN (23:52)
[2021-01-27] MEDS ORDERED: Dextrose 5% in Water 1,000 ML IV PRN (23:52)
[2021-01-28 00:35] VITALS: BMI 31.2
[2021-01-28] MEDS: HYDROcodone/Acetaminophen 5/325 mg Tablet PO PRN ×3 (00:55→11:49)
[2021-01-28] MEDS ORDERED: Morphine 2 MG/ML VIAL SLOW IVP PRN (00:55)
[2021-01-28] MEDS: Sodium Chloride 0.9% 1,000 ML IV SCH ×4 (02:00→21:25)
[2021-01-28 05:22] LABS: #Basophils 0.1 thou/uL (0.0-0.2); #Eosinphils 0.3 thou/uL (0.0-0.7); #Lymphocytes 3.6 thou/uL (1.20-3.40); #Monocytes 1.8 thou/uL (0.11-0.59); #Neutrophils 9.6 thou/uL (1.40-6.50); %Basophils 0.7 % (0.0-1.0); %Eosinophils 2.2 % (0.0-10.0); %Lymphocytes 23.4 % (21.0-51.0); %Monocytes 11.7 % (0.0-10.0); %Neutrophils 62.1 % (42.0-75.0); Hemoglobin 14.5 g/dL (12.0-16.0); Mean Corpuscular HGB CONC 31.5 g/dL (32.0-36.0); Mean Corpuscular Hemoglobin 29.3 pg (27.0-31.0); Mean Corpuscular Volume 92.9 fL (78.0-98.0); Mean Platelet Volume 8.3 fL (7.4-10.4); Platelet Count 348 thou/uL (130-400); RBC Distribution Width 11.8 % (11.5-14.5); Red Blood Cell (RBC) Count 4.94 mill/uL (4.20-5.40); White Blood Cell (WBC) Count 15.5 thou/uL (4.8-10.8)
[2021-01-28 05:41] LABS: Lactic Acid 1.8 mmol/L (0.5-2.2)
[2021-01-28 06:02] LABS: Anion Gap 15 mmol/L (10-20); BUN (Urea Nitrogen) 26 mg/dL (9.8-20.1); Calc. Creatinine Clearance 60 mL/min (70-130); Calcium 9.2 mg/dL (7.8-10.44); Carbon Dioxide 19 mmol/L (23-31); Chloride 110 mmol/L (98-107); Glucose 174 mg/dL (83-110); Potassium 4.5 mmol/L (3.5-5.1); Sodium 139 mmol/L (136-145)
[2021-01-28 06:10] LABS: SARS-CoV-2 NAA Rapid Test Not Detected (NotDetected)
[2021-01-28] MEDS: Piperacillin/Tazobactam 3.375 GM in Sodium Chloride 0.9% 100 ML IVPB SCH ×3 (06:30→21:26)
[2021-01-28] MEDS ORDERED: hydrALAZINE 20 MG/ML VIAL SLOW IVP PRN (08:27)
[2021-01-28] MEDS ORDERED: Calcium Carbonate 500 MG ChewTAB PO PRN (08:27)
[2021-01-28] MEDS ORDERED: GUAIFENESIN SF SOLN 200 MG/10 ML UDCUP PO PRN (08:27)
[2021-01-28] MEDS ORDERED: Loratadine 10 MG TAB PO PRN (08:27)
[2021-01-28] MEDS ORDERED: Senokot S 8.6-50 MG TAB PO PRN (08:27)
[2021-01-28] MEDS ORDERED: Bisacodyl 5 MG TAB PO PRN (08:27)
[2021-01-28] MEDS ORDERED: Sodium Chloride 0.65% Nasal 44 ML BOT EA NARE PRN (08:27)
[2021-01-28] MEDS ORDERED: Cepastat Lozenges 1 LOZ PO PRN (08:27)
[2021-01-28] MEDS ORDERED: Polyethylene Glycol 3350 17 GM Packet PO SCH (09:00)
[2021-01-28] MEDS ORDERED: VANCOMYCIN 1.25 GM/250 ML BAG IVPB SCH (09:00)
[2021-01-28 09:16] LABS: Lactic Acid 1.2 mmol/L (0.5-2.2)
[2021-01-28] MEDS: Enoxaparin Sodium 40 MG/0.4 ML SYRINGE SC SCH (10:09)
[2021-01-28] MEDS ORDERED: Acetaminophen 500 MG TAB PO SCH (15:00)
[2021-01-28] MEDS ORDERED: Fleet Enema 133 ML BOT PR SCH (15:00)
[2021-01-28] MEDS ORDERED: Magnesium Citrate 300 ML BOT PO SCH (15:00)
[2021-01-28] MEDS: Docusate 100 MG CAP PO SCH (22:57)
[2021-01-28] MEDS ORDERED: VANCOMYCIN 1.25 GM/250 ML BAG 1.25 GM in Premix Bag 1 BAG IVPB SCH (23:00)
[2021-01-29 05:11] LABS: #Basophils 0.1 thou/uL (0.0-0.2); #Eosinphils 0.5 thou/uL (0.0-0.7); #Lymphocytes 3.1 thou/uL (1.20-3.40); #Monocytes 1.2 thou/uL (0.11-0.59); #Neutrophils 4.5 thou/uL (1.40-6.50); %Basophils 1.2 % (0.0-1.0); %Lymphocytes 33.4 % (21.0-51.0); %Monocytes 12.8 % (0.0-10.0); %Neutrophils 47.5 % (42.0-75.0); Hemoglobin 13.1 g/dL (12.0-16.0); Mean Corpuscular Hemoglobin 31.1 pg (27.0-31.0); Mean Corpuscular Volume 94.3 fL (78.0-98.0); Mean Platelet Volume 8.3 fL (7.4-10.4); Platelet Count 279 thou/uL (130-400); RBC Distribution Width 11.7 % (11.5-14.5); Red Blood Cell (RBC) Count 4.21 mill/uL (4.20-5.40); White Blood Cell (WBC) Count 9.4 thou/uL (4.8-10.8)
[2021-01-29 05:34] LABS: ALT (SGPT) 33 U/L (8-55); AST (SGOT) 14 U/L (5-34); Albumin 3.2 g/dL (3.4-4.8); Alkaline Phosphatase 90 U/L (40-110); Anion Gap 11 mmol/L (10-20); BUN (Urea Nitrogen) 14 mg/dL (9.8-20.1); Bilirubin, Total 0.7 mg/dL (0.2-1.2); Calc. Creatinine Clearance 75 mL/min (70-130); Calcium 8.6 mg/dL (7.8-10.44); Carbon Dioxide 17 mmol/L (23-31); Chloride 112 mmol/L (98-107); Globulin 2.2 g/dL (2.4-3.5); Glucose 140 mg/dL (83-110); Potassium 3.8 mmol/L (3.5-5.1); Protein, Total 5.4 g/dL (5.8-8.1); Sodium 136 mmol/L (136-145)
[2021-01-29 05:43] LABS: Troponin I Less than 0.010 ng/mL (< 0.028)
[2021-01-29] MEDS: Piperacillin/Tazobactam 3.375 GM in Sodium Chloride 0.9% 100 ML IVPB SCH ×3 (06:10→21:38)
[2021-01-29] MEDS: Enoxaparin Sodium 40 MG/0.4 ML SYRINGE SC SCH (09:26)
[2021-01-29] MEDS: Acetaminophen 325 MG TAB PO PRN ×2 (12:24→21:41)
[2021-01-29] MEDS: Docusate 100 MG CAP PO SCH ×2 (13:23→21:37)
[2021-01-29] MEDS: traMADol HCl 50 MG TAB PO PRN ×2 (14:02→21:42)
[2021-01-30] MEDS: Piperacillin/Tazobactam 3.375 GM in Sodium Chloride 0.9% 100 ML IVPB SCH ×2 (05:24→14:58)
[2021-01-30 05:29] LABS: #Basophils 0.1 thou/uL (0.0-0.2); #Eosinphils 0.4 thou/uL (0.0-0.7); #Lymphocytes 3.1 thou/uL (1.20-3.40); #Neutrophils 4.1 thou/uL (1.40-6.50); %Basophils 0.8 % (0.0-1.0); %Eosinophils 4.9 % (0.0-10.0); %Lymphocytes 35.7 % (21.0-51.0); %Monocytes 11.5 % (0.0-10.0); Hemoglobin 13.1 g/dL (12.0-16.0); Mean Corpuscular HGB CONC 33.1 g/dL (32.0-36.0); Mean Corpuscular Hemoglobin 30.3 pg (27.0-31.0); Mean Corpuscular Volume 91.5 fL (78.0-98.0); Mean Platelet Volume 8.3 fL (7.4-10.4); Platelet Count 274 thou/uL (130-400); RBC Distribution Width 11.4 % (11.5-14.5); Red Blood Cell (RBC) Count 4.33 mill/uL (4.20-5.40); White Blood Cell (WBC) Count 8.6 thou/uL (4.8-10.8)
[2021-01-30] MEDS: Acetaminophen 325 MG TAB PO PRN ×2 (05:29→17:24)
[2021-01-30] MEDS: traMADol HCl 50 MG TAB PO PRN ×2 (05:30→17:25)
[2021-01-30 05:46] LABS: Anion Gap 10 mmol/L (10-20); BUN (Urea Nitrogen) 8 mg/dL (9.8-20.1); Calc. Creatinine Clearance 82 mL/min (70-130); Calcium 9.2 mg/dL (7.8-10.44); Carbon Dioxide 21 mmol/L (23-31); Chloride 107 mmol/L (98-107); Glucose 124 mg/dL (83-110); Potassium 3.3 mmol/L (3.5-5.1); Sodium 135 mmol/L (136-145)
[2021-01-30] MEDS: Enoxaparin Sodium 40 MG/0.4 ML SYRINGE SC SCH (09:08)
[2021-01-30] MEDS: Docusate 100 MG CAP PO SCH (09:09)
[2021-01-30 19:03] VITALS: BP 170/86; TEMP 97.7
== END 2021-01-30 19:15 | disposition home or self-care (01) | DRG 389 ==
LOC: ERS 19:36 → 2NO 22:52 → SURG A 01-29 19:04
PROVIDERS: ADMIT Specialist; ATTEND Internal Medicine
DX: K56.41 Fecal impaction (principal); E87.2 Acidosis; N17.9 Acute kidney failure, unspecified; Z20.822 Contact with and (suspected) exposure to COVID-19; M79.7 Fibromyalgia; R13.10 Dysphagia, unspecified; E78.5 Hyperlipidemia, unspecified; M19.90 Unspecified osteoarthritis, unspecified site; M10.9 Gout, unspecified; M81.0 Age-related osteoporosis without current pathological fracture; I50.9 Heart failure, unspecified; I11.0 Hypertensive heart disease with heart failure; N39.3 Stress incontinence (female) (male); E06.3 Autoimmune thyroiditis; J45.30 Mild persistent asthma, uncomplicated; E11.36 Type 2 diabetes mellitus with diabetic cataract; H26.9 Unspecified cataract; E11.649 Type 2 diabetes mellitus with hypoglycemia without coma; K52.9 Noninfective gastroenteritis and colitis, unspecified; E66.01 Morbid (severe) obesity due to excess calories; Z88.5 Allergy status to narcotic agent; Z88.8 Allergy status to other drugs, medicaments and biological substances; Z91.09 Other allergy status, other than to drugs and biological substances; Z79.899 Other long term (current) drug therapy; Z79.891 Long term (current) use of opiate analgesic; Z79.84 Long term (current) use of oral hypoglycemic drugs; Z90.710 Acquired absence of both cervix and uterus; Z98.1 Arthrodesis status; Z87.891 Personal history of nicotine dependence; Z68.31 Body mass index [BMI] 31.0-31.9, adult; Z87.442 Personal history of urinary calculi; Z79.51 Long term (current) use of inhaled steroids; Z90.49 Acquired absence of other specified parts of digestive tract; Z90.722 Acquired absence of ovaries, bilateral
CPT/HCPCS: 36415; 36416; 51701; 70491; 71045; 71275; 74177; 74230; 80048; 80053; 81003; 81015; 83605; 84484; 85025; 87040; 87086; 93005; 93010; 93306; 96365; 96367; J1650; J2543; J3370; J3490; Q9967; U0002; U0005

== ENCOUNTER 2021-02-17 19:45 | Emergency (ER) | payer MEDICARE, MEDICAID ==
[2021-02-17] MEDS ORDERED: Ondansetron PF 4 MG/2 ML Vial ONE (20:09)
[2021-02-17] MEDS ORDERED: Morphine 2 MG/ML VIAL ONE (20:09)
[2021-02-17 20:39] LABS: #Basophils 0.1 thou/uL (0.0-0.2); #Eosinphils 0.2 thou/uL (0.0-0.7); #Lymphocytes 2.8 thou/uL (1.20-3.40); #Neutrophils 5.6 thou/uL (1.40-6.50); %Basophils 0.7 % (0.0-1.0); %Lymphocytes 29.5 % (21.0-51.0); %Monocytes 10.1 % (0.0-10.0); %Neutrophils 57.7 % (42.0-75.0); Hemoglobin 15.9 g/dL (12.0-16.0); Mean Corpuscular HGB CONC 33.2 g/dL (32.0-36.0); Mean Corpuscular Hemoglobin 30.5 pg (27.0-31.0); Mean Corpuscular Volume 91.8 fL (78.0-98.0); Mean Platelet Volume 10.2 fL (7.4-10.4); Platelet Count 243 thou/uL (130-400); RBC Distribution Width 12.3 % (11.5-14.5); Red Blood Cell (RBC) Count 5.23 mill/uL (4.20-5.40); White Blood Cell (WBC) Count 9.6 thou/uL (4.8-10.8)
[2021-02-17 20:58] LABS: ALT (SGPT) 17 U/L (8-55); AST (SGOT) 22 U/L (5-34); Albumin 4.2 g/dL (3.4-4.8); Alkaline Phosphatase 104 U/L (40-110); Anion Gap 21 mmol/L (10-20); BUN (Urea Nitrogen) 12 mg/dL (9.8-20.1); Bilirubin, Total 0.7 mg/dL (0.2-1.2); CK (CPK) 20 U/L (29-168); Calc. Creatinine Clearance 0 mL/min (70-130); Calcium 10.4 mg/dL (7.8-10.44); Carbon Dioxide 19 mmol/L (23-31); Chloride 102 mmol/L (98-107); Globulin 3.5 g/dL (2.4-3.5); Glucose 148 mg/dL (83-110); Potassium 4.4 mmol/L (3.5-5.1); Protein, Total 7.7 g/dL (5.8-8.1); Sodium 138 mmol/L (136-145)
[2021-02-17 21:21] LABS: Bilirubin Negative (Negative); Blood, Urine Negative (Negative); Calcium Oxalate Crystals Rare HPF (None Seen); Clarity Clear (Clear); Glucose, Urine (Dipstick) Normal (Negative); Ketone, Urine 40 mg/dL (Negative); Leukocyte 25 Leu/uL (Negative); Nitrite Negative (Negative); Protein, Urine (Dipstick) 30 mg/dL (Neg-Trace); RBC/HPF 0-3 HPF (0-3); Urobilinogen Normal mg/dL (Less than 2)
[2021-02-17 21:23] LABS: Bacteria/HPF Rare-Few HPF (None Seen)
== END 2021-02-17 22:24 | disposition home or self-care (01) ==
LOC: ERS 19:45
DX: R10.11 Right upper quadrant pain (principal); R11.0 Nausea; E11.9 Type 2 diabetes mellitus without complications; I10 Essential (primary) hypertension; J45.909 Unspecified asthma, uncomplicated; M79.7 Fibromyalgia; Z87.891 Personal history of nicotine dependence; Z79.899 Other long term (current) drug therapy; Z79.84 Long term (current) use of oral hypoglycemic drugs
CPT/HCPCS: 74177; 80053; 82550; 83605; 85025; 87040; 87086; 96374; 96375; 99284; J2270; 36415; 81003; 81015; J2405

== ENCOUNTER 2021-04-07 14:50 | Outpatient (CLI) | payer MEDICARE, MEDICAID | END 2021-04-07 14:51 | disposition home or self-care (01) | LOC: TBSIIMAG 14:50 | PROVIDERS: ATTEND Neurological Surgery | DX: M47.22 Other spondylosis with radiculopathy, cervical region (principal); Z98.890 Other specified postprocedural states | CPT/HCPCS: 72040 ==

== ENCOUNTER 2021-05-25 09:16 | Outpatient (CLI) | payer MEDICARE, MEDICAID ==
[2021-05-25 12:00] LABS: PTT 31.3 sec (22.0-33.0); Prothrombin Time 11.5 sec (9.5-12.1)
[2021-05-25 12:05] LABS: Hemoglobin 16.4 g/dL (12.0-15.5); Mean Corpuscular Hemoglobin 28.9 pg (27.0-33.0); Mean Corpuscular Volume 87.5 fl (81.6-98.3); Mean Platelet Volume 12.6 fl (7.4-10.4); Platelet Count 294 10x3/uL (150-450); RBC Distribution Width 13.2 % (11.5-14.5); Red Blood Cell (RBC) Count 5.68 10x6/uL (3.90-5.03); White Blood Cell (WBC) Count 9.2 10x3/uL (3.5-10.5)
[2021-05-26 00:23] LABS: SARS-CoV-2 PCR by NAA Not Detected (NotDetected)
== END 2021-05-25 09:17 | disposition home or self-care (01) ==
LOC: LABBT 09:16
PROVIDERS: ATTEND Neurological Surgery
DX: Z01.812 Encounter for preprocedural laboratory examination (principal); M48.07 Spinal stenosis, lumbosacral region; M43.12 Spondylolisthesis, cervical region; Z20.822 Contact with and (suspected) exposure to COVID-19
CPT/HCPCS: 85027; 85610; 85730; U0003; U0005

== ENCOUNTER 2021-05-30 06:02 | Inpatient (IN) | payer MEDICARE, MEDICAID ==
[2021-05-29 13:07] VITALS: BMI 31.4
[2021-05-30] MEDS ORDERED: EPINEPHrine 1 MG/ML AMP ONE (06:11)
[2021-05-30] MEDS ORDERED: Thrombin 5000 UNITS/5 ML VIAL ONE ×2 (06:11→09:56)
[2021-05-30] MEDS ORDERED: Neomycin-Polymyxin 1 ML AMP ONE ×2 (06:11→12:09)
[2021-05-30] MEDS ORDERED: Bupivacaine PF 0.5% 30 ML VIAL ONE (06:11)
[2021-05-30] MEDS ORDERED: Promethazine HCl 12.5 MG SUPP PR PRN (06:34)
[2021-05-30] MEDS ORDERED: Milk Of Magnesia 30 ML UDCUP PO PRN (06:34)
[2021-05-30] MEDS ORDERED: Mag-Al 1200 mg/1200 mg/30 ML UDCUP PO PRN (06:34)
[2021-05-30] MEDS ORDERED: Prochlorperazine 10 MG/2 ML VIAL IM PRN (06:34)
[2021-05-30] MEDS ORDERED: diphenhydrAMINE 50 MG/ML VIAL IVP PRN (06:34)
[2021-05-30] MEDS ORDERED: Morphine 2 MG/ML VIAL SLOW IVP PRN (06:34)
[2021-05-30] MEDS ORDERED: Bisacodyl 10 MG SUPP PR PRN (06:34)
[2021-05-30] MEDS ORDERED: Acetaminophen 325 MG TAB PO PRN (06:34)
[2021-05-30] MEDS ORDERED: Morphine 4 MG/ML VIAL ONE (07:00)
[2021-05-30] MEDS ORDERED: Fentanyl 100 MCG/2 ML VIAL ONE ×3 (07:00→14:14)
[2021-05-30] MEDS ORDERED: Ketamine 50 MG/ML (10ML VIAL) ONE (07:00)
[2021-05-30] MEDS ORDERED: PHENYLEPHRINE-NS 100 MCG/ML 10 ML SYRINGE ONE ×3 (07:12→14:05)
[2021-05-30] MEDS ORDERED: PROPOFOL 200 MG/20 ML VIAL ONE (07:12)
[2021-05-30] MEDS ORDERED: Dexamethasone 20 MG/5 ML VIAL ONE (07:12)
[2021-05-30] MEDS ORDERED: Rocuronium Bromide 10 MG/ML (10ML VIAL) ONE (07:12)
[2021-05-30] MEDS ORDERED: Ondansetron PF 4 MG/2 ML Vial ONE ×3 (07:12→13:37)
[2021-05-30] MEDS ORDERED: Lidocaine 2% PF 5 ML VIAL ONE (07:12)
[2021-05-30] MEDS ORDERED: Bacitracin Zinc Ointment 30 gm TUBE ONE (07:40)
[2021-05-30] MEDS ORDERED: Phenylephrine 10 MG/ML VIAL ONE (09:28)
[2021-05-30] MEDS ORDERED: Albumin 5% 500 ML ONE (09:34)
[2021-05-30] MEDS ORDERED: SUGAMMADEX SODIUM 200 MG/2 ML VIAL ONE (12:47)
[2021-05-30] MEDS ORDERED: HYDROmorphone 2 MG/ML VIAL ONE (13:50)
[2021-05-30] MEDS ORDERED: CEFAZOLIN 2 GM in Premix Bag 1 BAG IVPB SCH (14:00)
[2021-05-30] MEDS ORDERED: Promethazine HCl 25 MG/ML VIAL IM PRN (14:10)
[2021-05-30] MEDS ORDERED: Ondansetron HCl/PF 4 MG/2 ML Vial IVP PRN (14:10)
[2021-05-30] MEDS ORDERED: Albumin 5% 250 ML ONE (15:29)
[2021-05-30] MEDS: HYDROcodone/Acetaminophen 10/325 mg Tablet PO PRN (18:09)
[2021-05-30] MEDS: ceFAZolin Sodium/D5W 2 GM in Premix Bag 1 BAG IVPB SCH (18:17)
[2021-05-30] MEDS: tiZANidine HCl 4 MG TAB PO PRN (18:22)
[2021-05-30 18:37] LABS: Anion Gap 17 mmol/L (10-20); BUN (Urea Nitrogen) 9 mg/dL (9.8-20.1); Calc. Creatinine Clearance 54 mL/min (70-130); Calcium 8.9 mg/dL (7.8-10.44); Carbon Dioxide 19 mmol/L (23-31); Chloride 105 mmol/L (98-107); Glucose 130 mg/dL (83-110); Potassium 4.8 mmol/L (3.5-5.1); Sodium 136 mmol/L (136-145)
[2021-05-30] MEDS ORDERED: Albuterol Sulfate 1.25 MG/3 ML NEB NEB PRN (18:43)
[2021-05-30 19:15] LABS: #Lymphocytes 2.1 thou/uL (1.20-3.40); #Monocytes 1.2 thou/uL (0.11-0.59); %Basophils 0.2 % (0.0-1.0); %Eosinophils 0.1 % (0.0-10.0); %Lymphocytes 14.7 % (21.0-51.0); %Monocytes 8.2 % (0.0-10.0); %Neutrophils 76.8 % (42.0-75.0); Hemoglobin 10.7 g/dL (12.0-16.0); Mean Corpuscular HGB CONC 33.5 g/dL (32.0-36.0); Mean Corpuscular Hemoglobin 30.8 pg (27.0-31.0); Mean Corpuscular Volume 91.8 fL (78.0-98.0); Mean Platelet Volume 9.5 fL (7.4-10.4); Platelet Count 200 thou/uL (130-400); Red Blood Cell (RBC) Count 3.47 mill/uL (4.20-5.40); White Blood Cell (WBC) Count 14.3 thou/uL (4.8-10.8)
[2021-05-30] MEDS ORDERED: Sodium Chloride 0.9% 1,000 ML IV SCH (22:00)
[2021-05-30 22:28] LABS: #Monocytes 1.1 thou/uL (0.11-0.59); #Neutrophils 7.9 thou/uL (1.40-6.50); %Basophils 0.4 % (0.0-1.0); %Eosinophils 0.1 % (0.0-10.0); %Lymphocytes 18.2 % (21.0-51.0); %Monocytes 10.2 % (0.0-10.0); Hemoglobin 9.5 g/dL (12.0-16.0); Mean Corpuscular HGB CONC 32.2 g/dL (32.0-36.0); Mean Corpuscular Hemoglobin 29.4 pg (27.0-31.0); Mean Corpuscular Volume 91.5 fL (78.0-98.0); Mean Platelet Volume 9.5 fL (7.4-10.4); Platelet Count 195 thou/uL (130-400); RBC Distribution Width 12.2 % (11.5-14.5); Red Blood Cell (RBC) Count 3.23 mill/uL (4.20-5.40); White Blood Cell (WBC) Count 11.1 thou/uL (4.8-10.8)
[2021-05-30 22:43] LABS: Lactic Acid 1.4 mmol/L (0.5-2.2)
[2021-05-30 22:47] LABS: ALT (SGPT) 16 U/L (8-55); AST (SGOT) 35 U/L (5-34); Albumin 3.1 g/dL (3.4-4.8); Alkaline Phosphatase 48 U/L (40-110); Anion Gap 12 mmol/L (10-20); BUN (Urea Nitrogen) 9 mg/dL (9.8-20.1); Bilirubin, Total 0.4 mg/dL (0.2-1.2); Calc. Creatinine Clearance 51 mL/min (70-130); Calcium 8.3 mg/dL (7.8-10.44); Carbon Dioxide 22 mmol/L (23-31); Chloride 104 mmol/L (98-107); Globulin 1.4 g/dL (2.4-3.5); Glucose 160 mg/dL (83-110); Potassium 4.5 mmol/L (3.5-5.1); Protein, Total 4.5 g/dL (5.8-8.1); Sodium 133 mmol/L (136-145)
[2021-05-31] MEDS: Docusate 100 MG CAP PO SCH ×3 (01:32→20:20)
[2021-05-31] MEDS: ceFAZolin Sodium/D5W 2 GM in Premix Bag 1 BAG IVPB SCH ×3 (04:15→17:12)
[2021-05-31 07:04] LABS: #Lymphocytes 1.4 thou/uL (1.20-3.40); #Monocytes 1.6 thou/uL (0.11-0.59); #Neutrophils 9.5 thou/uL (1.40-6.50); %Basophils 0.2 % (0.0-1.0); %Eosinophils 0.2 % (0.0-10.0); %Lymphocytes 11.2 % (21.0-51.0); %Monocytes 12.5 % (0.0-10.0); %Neutrophils 75.9 % (42.0-75.0); Hemoglobin 10.2 g/dL (12.0-16.0); Mean Corpuscular HGB CONC 32.2 g/dL (32.0-36.0); Mean Corpuscular Hemoglobin 29.4 pg (27.0-31.0); Mean Corpuscular Volume 91.4 fL (78.0-98.0); Mean Platelet Volume 9.7 fL (7.4-10.4); Platelet Count 198 thou/uL (130-400); Red Blood Cell (RBC) Count 3.46 mill/uL (4.20-5.40); White Blood Cell (WBC) Count 12.5 thou/uL (4.8-10.8)
[2021-05-31] MEDS ORDERED: HumaLOG 300 UNITS/3 ML VIAL SC PRN ×2 (07:54→08:15)
[2021-05-31] MEDS: traMADol HCl 50 MG TAB PO PRN ×2 (08:07→17:06)
[2021-05-31] MEDS: Senokot 8.6 MG TAB PO SCH (09:00)
[2021-05-31] MEDS: HYDROcodone/Acetaminophen 7.5/325 mg Tablet PO PRN ×2 (10:10→21:32)
[2021-06-01] MEDS: traMADol HCl 50 MG TAB PO PRN ×3 (01:41→18:32)
[2021-06-01] MEDS: ceFAZolin Sodium/D5W 2 GM in Premix Bag 1 BAG IVPB SCH ×3 (01:41→18:26)
[2021-06-01 06:45] LABS: #Basophils 0.1 thou/uL (0.0-0.2); #Lymphocytes 1.9 thou/uL (1.20-3.40); #Monocytes 1.7 thou/uL (0.11-0.59); #Neutrophils 12.4 thou/uL (1.40-6.50); %Basophils 0.3 % (0.0-1.0); %Eosinophils 0.2 % (0.0-10.0); %Lymphocytes 11.7 % (21.0-51.0); %Monocytes 10.5 % (0.0-10.0); %Neutrophils 77.2 % (42.0-75.0); Mean Corpuscular HGB CONC 33.6 g/dL (32.0-36.0); Mean Corpuscular Hemoglobin 30.2 pg (27.0-31.0); Mean Platelet Volume 9.5 fL (7.4-10.4); Platelet Count 194 thou/uL (130-400); RBC Distribution Width 11.9 % (11.5-14.5)
[2021-06-01 07:06] LABS: ALT (SGPT) Less than 7 U/L (8-55); AST (SGOT) 33 U/L (5-34); Albumin 3.1 g/dL (3.4-4.8); Alkaline Phosphatase 63 U/L (40-110); Anion Gap 12 mmol/L (10-20); BUN (Urea Nitrogen) 8 mg/dL (9.8-20.1); Bilirubin, Total 0.8 mg/dL (0.2-1.2); Calc. Creatinine Clearance 78 mL/min (70-130); Calcium 8.6 mg/dL (7.8-10.44); Carbon Dioxide 20 mmol/L (23-31); Chloride 104 mmol/L (98-107); Globulin 1.8 g/dL (2.4-3.5); Glucose 122 mg/dL (83-110); Potassium 3.9 mmol/L (3.5-5.1); Protein, Total 4.9 g/dL (5.8-8.1); Sodium 132 mmol/L (136-145)
[2021-06-01 08:00] LABS: Band 5 % (5-11); Monocytes 10 % (0-10)
[2021-06-01 08:01] LABS: Lymphocytes 14 % (21-51); Neutrophil 71 % (42-75); Platelet Morphology Comment Appears Adequate; Polychromasia SLIGHT = 2-3 cells (100X) (0-2/hpf)
[2021-06-01 08:31] LABS: Bilirubin Negative (Negative); Blood, Urine 2+ (Negative); Clarity Clear (Clear); Glucose, Urine (Dipstick) Normal (Negative); Ketone, Urine 10 mg/dL (Negative); Leukocyte Negative Leu/uL (Negative); Nitrite Negative (Negative); Protein, Urine (Dipstick) 20 mg/dL (Neg-Trace); RBC/HPF 0-3 HPF (0-3); Specific Gravity, Urine 1.022 (1.002-1.036); Urobilinogen Normal mg/dL (Less than 2); WBC/HPF 0-3 HPF (0-3); pH, Urine 5.5 (5.0-9.0)
[2021-06-01] MEDS: Senokot 8.6 MG TAB PO SCH (08:32)
[2021-06-01] MEDS: Docusate 100 MG CAP PO SCH ×2 (08:33→22:56)
[2021-06-01 08:39] LABS: Bacteria/HPF Rare-Few HPF (None Seen); Yeast-Hyphae Rare HPF (None Seen)
[2021-06-01] MEDS: HYDROcodone/Acetaminophen 7.5/325 mg Tablet PO PRN ×2 (11:06→22:55)
[2021-06-01 18:29] LABS: SARS-CoV-2 NAA Rapid Test Not Detected (NotDetected)
[2021-06-02] MEDS: ceFAZolin Sodium/D5W 2 GM in Premix Bag 1 BAG IVPB SCH ×3 (03:35→17:52)
[2021-06-02] MEDS: HYDROcodone/Acetaminophen 7.5/325 mg Tablet PO PRN (04:44)
[2021-06-02 07:14] LABS: ALT (SGPT) Less than 7 U/L (8-55); AST (SGOT) 17 U/L (5-34); Albumin 2.8 g/dL (3.4-4.8); Alkaline Phosphatase 67 U/L (40-110); Anion Gap 11 mmol/L (10-20); BUN (Urea Nitrogen) 9 mg/dL (9.8-20.1); Bilirubin, Total 0.6 mg/dL (0.2-1.2); Calc. Creatinine Clearance 84 mL/min (70-130); Calcium 8.7 mg/dL (7.8-10.44); Carbon Dioxide 20 mmol/L (23-31); Chloride 100 mmol/L (98-107); Globulin 2.3 g/dL (2.4-3.5); Glucose 105 mg/dL (83-110); Potassium 3.5 mmol/L (3.5-5.1); Protein, Total 5.1 g/dL (5.8-8.1); Sodium 127 mmol/L (136-145)
[2021-06-02] MEDS: Docusate 100 MG CAP PO SCH ×2 (08:41→20:29)
[2021-06-02] MEDS: HYDROcodone/Acetaminophen 10/325 mg Tablet PO PRN ×3 (08:41→17:00)
[2021-06-02] MEDS: Senokot 8.6 MG TAB PO SCH (08:41)
[2021-06-02 11:35] LABS: #Eosinphils 0.1 thou/uL (0.0-0.7); #Lymphocytes 1.6 thou/uL (1.20-3.40); #Monocytes 0.8 thou/uL (0.11-0.59); #Neutrophils 7.2 thou/uL (1.40-6.50); %Basophils 0.3 % (0.0-1.0); %Eosinophils 0.9 % (0.0-10.0); %Lymphocytes 16.7 % (21.0-51.0); %Monocytes 8.3 % (0.0-10.0); %Neutrophils 73.8 % (42.0-75.0); Hemoglobin 9.2 g/dL (12.0-16.0); Mean Corpuscular HGB CONC 31.9 g/dL (32.0-36.0); Mean Corpuscular Hemoglobin 29.2 pg (27.0-31.0); Mean Corpuscular Volume 91.7 fL (78.0-98.0); Mean Platelet Volume 9.4 fL (7.4-10.4); Platelet Count 175 thou/uL (130-400); Red Blood Cell (RBC) Count 3.15 mill/uL (4.20-5.40); White Blood Cell (WBC) Count 9.7 thou/uL (4.8-10.8)
[2021-06-02] MEDS: Ondansetron PF 4 MG/2 ML Vial IVP PRN (19:08)
[2021-06-03] MEDS: ceFAZolin Sodium/D5W 2 GM in Premix Bag 1 BAG IVPB SCH ×3 (01:58→18:17)
[2021-06-03] MEDS: HYDROcodone/Acetaminophen 10/325 mg Tablet PO PRN ×4 (03:00→18:07)
[2021-06-03] MEDS: Senokot 8.6 MG TAB PO SCH (08:49)
[2021-06-03] MEDS: Docusate 100 MG CAP PO SCH ×2 (08:49→20:48)
[2021-06-03] MEDS: Ondansetron PF 4 MG/2 ML Vial IVP PRN (08:49)
[2021-06-03 11:02] LABS: #Basophils 0.1 thou/uL (0.0-0.2); #Eosinphils 0.2 thou/uL (0.0-0.7); #Lymphocytes 1.4 thou/uL (1.20-3.40); #Monocytes 0.7 thou/uL (0.11-0.59); #Neutrophils 5.3 thou/uL (1.40-6.50); %Basophils 0.9 % (0.0-1.0); %Eosinophils 2.5 % (0.0-10.0); %Lymphocytes 18.6 % (21.0-51.0); Hemoglobin 9.8 g/dL (12.0-16.0); Mean Corpuscular HGB CONC 34.3 g/dL (32.0-36.0); Mean Corpuscular Volume 90.2 fL (78.0-98.0); Mean Platelet Volume 9.1 fL (7.4-10.4); Platelet Count 229 thou/uL (130-400); RBC Distribution Width 11.7 % (11.5-14.5); Red Blood Cell (RBC) Count 3.17 mill/uL (4.20-5.40); White Blood Cell (WBC) Count 7.7 thou/uL (4.8-10.8)
[2021-06-03 11:35] LABS: Chloride 100 mmol/L (98-107); Potassium 3.6 mmol/L (3.5-5.1); Sodium 133 mmol/L (136-145)
[2021-06-03 11:36] LABS: Anion Gap 15 mmol/L (10-20); BUN (Urea Nitrogen) 8 mg/dL (9.8-20.1); Calc. Creatinine Clearance 90 mL/min (70-130); Calcium 8.7 mg/dL (7.8-10.44); Carbon Dioxide 22 mmol/L (23-31); Glucose 98 mg/dL (83-110)
[2021-06-04] MEDS: ceFAZolin Sodium/D5W 2 GM in Premix Bag 1 BAG IVPB SCH ×3 (03:34→19:03)
[2021-06-04 06:04] LABS: #Eosinphils 0.2 thou/uL (0.0-0.7); #Lymphocytes 1.2 thou/uL (1.20-3.40); #Monocytes 0.6 thou/uL (0.11-0.59); #Neutrophils 4.2 thou/uL (1.40-6.50); %Basophils 0.4 % (0.0-1.0); %Eosinophils 2.8 % (0.0-10.0); %Lymphocytes 19.1 % (21.0-51.0); %Monocytes 10.2 % (0.0-10.0); %Neutrophils 67.5 % (42.0-75.0); Hemoglobin 10.3 g/dL (12.0-16.0); Mean Corpuscular HGB CONC 32.5 g/dL (32.0-36.0); Mean Corpuscular Hemoglobin 29.3 pg (27.0-31.0); Mean Corpuscular Volume 90.1 fL (78.0-98.0); Platelet Count 293 thou/uL (130-400); RBC Distribution Width 11.8 % (11.5-14.5); Red Blood Cell (RBC) Count 3.51 mill/uL (4.20-5.40); White Blood Cell (WBC) Count 6.3 thou/uL (4.8-10.8)
[2021-06-04 06:20] LABS: Anion Gap 13 mmol/L (10-20); BUN (Urea Nitrogen) 6 mg/dL (9.8-20.1); Calc. Creatinine Clearance 87 mL/min (70-130); Calcium 8.8 mg/dL (7.8-10.44); Carbon Dioxide 26 mmol/L (23-31); Chloride 98 mmol/L (98-107); Glucose 100 mg/dL (83-110); Potassium 3.6 mmol/L (3.5-5.1); Sodium 133 mmol/L (136-145)
[2021-06-04] MEDS: Senokot 8.6 MG TAB PO SCH (08:42)
[2021-06-04] MEDS: Docusate 100 MG CAP PO SCH ×2 (08:42→21:02)
[2021-06-04] MEDS: Ondansetron PF 4 MG/2 ML Vial IVP PRN (08:42)
[2021-06-04] MEDS: HYDROcodone/Acetaminophen 10/325 mg Tablet PO PRN ×2 (08:42→12:51)
[2021-06-04] MEDS: tiZANidine HCl 4 MG TAB PO PRN ×2 (15:42→22:19)
[2021-06-05] MEDS: ceFAZolin Sodium/D5W 2 GM in Premix Bag 1 BAG IVPB SCH ×2 (02:18→10:49)
[2021-06-05] MEDS: HYDROcodone/Acetaminophen 10/325 mg Tablet PO PRN (03:48)
[2021-06-05 06:41] LABS: #Eosinphils 0.2 thou/uL (0.0-0.7); #Lymphocytes 1.6 thou/uL (1.20-3.40); #Monocytes 0.8 thou/uL (0.11-0.59); #Neutrophils 5.3 thou/uL (1.40-6.50); %Basophils 0.6 % (0.0-1.0); %Eosinophils 2.2 % (0.0-10.0); %Lymphocytes 20.4 % (21.0-51.0); %Neutrophils 66.8 % (42.0-75.0); Hemoglobin 9.9 g/dL (12.0-16.0); Mean Corpuscular HGB CONC 33.7 g/dL (32.0-36.0); Mean Corpuscular Volume 89.1 fL (78.0-98.0); Platelet Count 323 thou/uL (130-400); RBC Distribution Width 11.8 % (11.5-14.5); Red Blood Cell (RBC) Count 3.31 mill/uL (4.20-5.40)
[2021-06-05 07:05] LABS: Anion Gap 14 mmol/L (10-20); BUN (Urea Nitrogen) 7 mg/dL (9.8-20.1); Calc. Creatinine Clearance 83 mL/min (70-130); Calcium 9.2 mg/dL (7.8-10.44); Carbon Dioxide 24 mmol/L (23-31); Chloride 98 mmol/L (98-107); Glucose 100 mg/dL (83-110); Potassium 3.5 mmol/L (3.5-5.1); Sodium 132 mmol/L (136-145)
[2021-06-05] MEDS: Docusate 100 MG CAP PO SCH (08:15)
[2021-06-05] MEDS: Senokot 8.6 MG TAB PO SCH (08:15)
[2021-06-05] MEDS: tiZANidine HCl 4 MG TAB PO PRN ×2 (08:15→16:44)
[2021-06-05 16:16] VITALS: BP 147/81; TEMP 98
== END 2021-06-05 18:15 | DRG 455 ==
LOC: SDC 06:02 → SURG A 16:50 → 2SE 05-31 00:01 → SURG B 05-31 14:07 → 2SE 05-31 14:25 → SURG B 05-31 15:34
PROVIDERS: ADMIT Neurological Surgery; ATTEND Internal Medicine
PROC: 0SG00AJ Fusion of Lumbar Vertebral Joint with Interbody Fusion Device, Posterior Approach, Anterior Column, Open Approach (ICD-10-PCS; principal; 2021-05-30)
PROC: 0SG0071 Fusion of Lumbar Vertebral Joint with Autologous Tissue Substitute, Posterior Approach, Posterior Column, Open Approach (ICD-10-PCS; 2021-05-30)
PROC: 0SB20ZZ Excision of Lumbar Vertebral Disc, Open Approach (ICD-10-PCS; 2021-05-30)
PROC: 01NB0ZZ Release Lumbar Nerve, Open Approach (ICD-10-PCS; 2021-05-30)
PROC: 01NR0ZZ Release Sacral Nerve, Open Approach (ICD-10-PCS; 2021-05-30)
DX: M48.062 Spinal stenosis, lumbar region with neurogenic claudication (principal); M43.16 Spondylolisthesis, lumbar region; Z20.822 Contact with and (suspected) exposure to COVID-19; M19.90 Unspecified osteoarthritis, unspecified site; M10.9 Gout, unspecified; I50.9 Heart failure, unspecified; I11.0 Hypertensive heart disease with heart failure; E66.9 Obesity, unspecified; E06.3 Autoimmune thyroiditis; J45.30 Mild persistent asthma, uncomplicated; H26.9 Unspecified cataract; I95.9 Hypotension, unspecified; R50.82 Postprocedural fever; I95.81 Postprocedural hypotension; Z98.1 Arthrodesis status; Z90.49 Acquired absence of other specified parts of digestive tract; Z90.710 Acquired absence of both cervix and uterus; Z90.89 Acquired absence of other organs; Z87.440 Personal history of urinary (tract) infections; Z87.891 Personal history of nicotine dependence; Z68.31 Body mass index [BMI] 31.0-31.9, adult; Z83.3 Family history of diabetes mellitus; Z79.899 Other long term (current) drug therapy; Z88.6 Allergy status to analgesic agent; Z88.5 Allergy status to narcotic agent
CPT/HCPCS: 36415; 36416; 71045; 72100; 76000; 80048; 80053; 81003; 81015; 83605; 85025; 87040; 87086; 93970; C1713; C1768; J0171; J0690; J1100; J1170; J2001; J2270; J2370; J2405; J2704; J3010; J3370; J7050; P9045; S0020; U0002

== ENCOUNTER 2021-09-15 14:06 | Outpatient (CLI) | payer MEDICARE, MEDICAID | END 2021-09-15 14:07 | disposition home or self-care (01) | LOC: BICRAD 14:06 | PROVIDERS: ATTEND Neurological Surgery | DX: M48.062 Spinal stenosis, lumbar region with neurogenic claudication (principal); M47.816 Spondylosis without myelopathy or radiculopathy, lumbar region; Z98.890 Other specified postprocedural states | CPT/HCPCS: 72100 ==